=== PATIENT | female | born 1945 | race Caucasian/White ===

== ENCOUNTER 2017-11-27 10:15 | Outpatient (RCR) | payer MEDICARE, SELFPAY ==
[2017-10-28 00:29] VITALS: BP 144/70; BP 86/58
--- NOTE | 2017-11-27 13:15 | PCM.CR.ITP ---
Exercise - Initial Assessment - Stages of Change Stages of Change:: Action - Exercise Prescription Mode:: Treadmill, Rower, Airdyne, NuStep Angina with exercise?: No - Hypertension Do any of the following apply?: Yes - Intervention Home Exercise/Activity Goal:: Moderate Exercise 30 min/day x 5 days/wk - Education Goals:: Warm-up, RPE JUAN Scale, S/S, Safe Exercise, Self-Monitoring - Exercise Program Goals Exercise Program Goals: Aerobic Activity >30 min Exercise - 30-day Assessment - Stages of Change Stages of Change:: Action - Exercise Prescription Mode:: Treadmill, Airdyne, NuStep Frequency (x/week): 3 Duration:: 35 METs - Progression: 0.5-1 MET as tolerated: 3.5 Target Heart Rate:: 104-112 - Intervention Home Exercise/Activity Goal:: Moderate Exercise 30 min/day x 5 days/wk - Education Goals:: Warm-up, RPE JUAN Scale, S/S, Safe Exercise, Self-Monitoring - Exercise Program Goals Exercise Program Goals: Aerobic Activity >30 min Exercise - 60-Day Assessment - Visit Date of Eval: 10/25/17 - Stages of Change Stages of Change:: Action - Exercise Prescription Mode:: Treadmill, Airdyne, NuStep, Arm Ergometer Frequency (x/week): 3 Duration:: 30 METs: 4 Target Heart Rate:: 104-112 MAX HR 112 - Hypertension Medication Changes:: Yes - 10/07/17 - Intervention Home Exercise/Activity Goal:: Moderate Exercise 30 min/day x 5 days/wk - Education Goals:: Warm-up, RPE JUAN Scale, S/S, Safe Exercise, Self-Monitoring - Exercise Program Goals Exercise Program Goals: Aerobic Activity >30 min Exercise - 90-Day Assessment - Visit Date of Eval: 11/27/17 Session #:: 30 - Stages of Change Stages of Change:: Action - Exercise Prescription Mode:: Treadmill, Airdyne, NuStep, Arm Ergometer Frequency (x/week): 3 Duration:: 30 METs: 4.5 Target Heart Rate:: 104-112 MAX HR 104 - Hypertension Resting Blood Pressure:: 84/52 Peak Exercise Blood Pressure:: 118/70 Medication Changes:: Yes - 10/07/17 - Intervention Home Exercise/Activity Goal:: Moderate Exercise 30 min/day x 5 days/wk - Education Goals:: Warm-up, RPE JUAN Scale, S/S, Safe Exercise, Self-Monitoring - Exercise Program Goals Exercise Program Goals: Aerobic Activity >30 min Exercise - Final/Discharge - Hypertension Do any of the following apply?: Yes Nutrition - Initial Assessment - Program Goals Nutrition Program Goals: LDL <70. Total Cholesterol <200. HDL >45. Triglycerides <150. HgbA1C <7%. BMI <25 - Stages of Change Stages of Change:: Action - Diabetes Diabetes:: No Non-Insulin Dependent?: No Do you monitor your blood sugar at home?: No - Weight Management Body Fat %:: 29 Total Score:: 3 - Intervention Referral to dietitian:: No Referral to Diabetic Clinic:: No Will attend diet classes:: Yes - Education Gave educational materials for:: Healthy eating Nutrition - 30-Day Assessment - Program Goals Nutrition Program Goals: LDL <70. Total Cholesterol <200. HDL >45. Triglycerides <150. HgbA1C <7%. BMI <25 - Stages of Change Stages of Change:: Action - Lipids Has the patient seen the dietitian?: No - Diabetes Diabetes:: No Non-Insulin Dependent?: No - Intervention Referral to dietitian:: No Referral to Diabetic Clinic:: No Will attend diet classes:: Yes - Education Attended class for:: Healthy eating Nutrition - 60-Day Assessment - Program Goals Nutrition Program Goals: LDL <70. Total Cholesterol <200. HDL >45. Triglycerides <150. HgbA1C <7%. BMI <25 - Visit Date of Eval: 10/25/17 - Stages of Change Stages of Change:: Action - Lipids Has the patient seen the dietitian?: No - Diabetes Diabetes:: No Non-Insulin Dependent?: No - Intervention Referral to dietitian:: No Referral to Diabetic Clinic:: No Will attend diet classes:: Yes - Education Attended class for:: Healthy eating Nutrition - 90-Day Assessment - Program Goals Nutrition Program Goals: LDL <70. Total Cholesterol <200. HDL >45. Triglycerides <150. HgbA1C <7%. BMI <25 - Visit Date of Eval: 11/27/17 - Stages of Change Stages of Change:: Action - Lipids Has the patient seen the dietitian?: No - Diabetes Diabetes:: No Non-Insulin Dependent?: No - Weight Management Weight:: 93.667 kg - gained 16.5# this month - Intervention Referral to dietitian:: No Referral to Diabetic Clinic:: No Will attend diet classes:: Yes - Education Attended class for:: Healthy eating Nutrition - Final Assessment - Program Goals Nutrition Program Goals: LDL <70. Total Cholesterol <200. HDL >45. Triglycerides <150. HgbA1C <7%. BMI <25 - Diabetes Diabetes:: No Non-Insulin Dependent?: No - Weight Management Body Fat %:: 29 Total Score:: 3 - Intervention Referral to dietitian:: No Referral to Diabetic Clinic:: No Will attend diet classes:: Yes Tobacco - Initial Assessment - Program Goals Tobacco Program Goals: Complete smoking cessation. Attend education classes. Improve Knowledge Test score - Stage of Change Stages of Change:: Action - Learning Barriers Learning Barriers: Vision, Ready to Learn Total Score:: 6 - Family Support Do you have family support?: Yes - Tobacco Use Do you use smokeless tobacco?: No - Intervention Smoking Cessation Referral:: No Individual Education/Counseling:: No Education Schedule Given:: Yes - Education Gave educational material for:: Coronary artery disease, Risk factors, Sexuality, Medical compliance, Cardiac A&P, Angina signs & symptoms Tobacco - 30-Day Assessment - Program Goals Tobacco Program Goals: Complete smoking cessation. Attend education classes. Improve Knowledge Test score - Stage of Change Stages of Change:: Action - Learning Barriers Learning Barriers: Participates in education - Family Support Do you have family support?: Yes - Tobacco Use Tobacco Use: Non-smoker Do you use smokeless tobacco?: No - Intervention Smoking Cessation Referral:: No Individual Education/Counseling:: No Education Schedule Given:: Yes - Education Attended class for:: Coronary artery disease, Risk factors, Sexuality, Medical compliance, Cardiac A&P, Angina signs & symptoms Tobacco - 60-Day Assessment - Program Goals Tobacco Program Goals: Complete smoking cessation. Attend education classes. Improve Knowledge Test score - Stage of Change Stages of Change:: Action - Learning Barriers Learning Barriers: Participates in education - Family Support Do you have family support?: Yes - Tobacco Use Tobacco Use: Non-smoker Do you use smokeless tobacco?: No - Intervention Smoking Cessation Referral:: No Individual Education/Counseling:: No Education Schedule Given:: Yes - Education Attended class for:: Coronary artery disease, Risk factors, Sexuality, Medical compliance, Cardiac A&P, Angina signs & symptoms Tobacco - 90-Day Assessment - Program Goals Tobacco Program Goals: Complete smoking cessation. Attend education classes. Improve Knowledge Test score - Stage of Change Stages of Change:: Action - Learning Barriers Learning Barriers: Participates in education - Family Support Do you have family support?: Yes - Tobacco Use Tobacco Use: Non-smoker Do you use smokeless tobacco?: No - Intervention Smoking Cessation Referral:: No Individual Education/Counseling:: No Education Schedule Given:: Yes - Education Attended class for:: Coronary artery disease, Risk factors, Sexuality, Medical compliance, Cardiac A&P, Angina signs & symptoms Tobacco - Final Assessment - Program Goals Tobacco Program Goals: Complete smoking cessation. Attend education classes. Improve Knowledge Test score - Learning Barriers Cardiac Knowledge Test Score:: 6 - Family Support Do you have family support?: Yes - Tobacco Use Tobacco Use: Non-smoker Do you use smokeless tobacco?: No - Intervention Smoking Cessation Referral:: No Individual Education/Counseling:: No Education Schedule Given:: Yes Psychosocial - Initial Assess - Target Goals Target Goals: Assess presence or absence of depression. Using a valid screening tool, maximizes coping skills. Positive support system - Stages of Change Stages of Change:: Action - Psychosocial Test Tool Used:: HANDS Depression Questionnaire Tests Completed: SF - 36 survey completed, Mood Scale Test Self-Efficacy Score:: 7 - Patient/Program Goal Preventative Medication(s):: Aspirin, SHUN inhibitor, Clopidogrel, Beta veronika, Statin/lipid - Assistive Devices Assistive Devices:: None Fall Risk Assessed:: Yes Psychosocial - 30-Day Assess - Target Goals Target Goals: Assess presence or absence of depression. Using a valid screening tool, maximizes coping skills. Positive support system - Stages of Change Stages of Change:: Action - Psychosocial Test Tool Used:: HANDS Depression Questionnaire Self-Efficacy Score:: 7 - Patient/Program Goal Preventative Medication(s):: Aspirin, SHUN inhibitor, Clopidogrel, Beta veronika, Statin/lipid - Assistive Devices Assistive Devices:: None Fall Risk Assessed:: Yes Psychosocial - 60-Day Assess - Target Goals Target Goals: Assess presence or absence of depression. Using a valid screening tool, maximizes coping skills. Positive support system - Stages of Change Stages of Change:: Action - Psychosocial Test Tool Used:: HANDS Depression Questionnaire Self-Efficacy Score:: 7 - Patient/Program Goal Preventative Medication(s):: Aspirin, SHUN inhibitor, Clopidogrel, Beta veronika, Statin/lipid - Assistive Devices Assistive Devices:: None Fall Risk Assessed:: Yes Psychosocial - 90-Day Assess - Target Goals Target Goals: Assess presence or absence of depression. Using a valid screening tool, maximizes coping skills. Positive support system - Stages of Change Stages of Change:: Action - Psychosocial Test Tool Used:: HANDS Depression Questionnaire Self-Efficacy Score:: 7 - Intervention PS - Interventions: Yes Attend Stress Management Classes, Yes Uses Stress Management Skills, No Referral to Mental Health, No Referral to [facility] Case Management, No Referral to Physician - Education Attended classes for:: Coping techniques, Signs & symptoms of depression, Stress management, Relaxation techniques - Patient/Program Goal Preventative Medication(s):: Aspirin, SHUN inhibitor, Clopidogrel, Beta veronika, Statin/lipid - Assistive Devices Assistive Devices:: None Fall Risk Assessed:: Yes Psychosocial - Final Assessmen - Target Goals Target Goals: Assess presence or absence of depression. Using a valid screening tool, maximizes coping skills. Positive support system - Psychosocial Test Tool Used:: HANDS Depression Questionnaire Tests Completed: SF - 36 survey completed, Mood Scale Test Self-Efficacy Score:: 7 - Patient/Program Goal Preventative Medication(s):: Aspirin, SHUN inhibitor, Clopidogrel, Beta veronika, Statin/lipid - Assistive Devices Assistive Devices:: None Fall Risk Assessed:: Yes Patient Health Questionnaire 90-Day Re-eval Assessment 1. Little interest or pleasure in doing things: Not at all 2. Feeling down, depressed, or hopeless: Not at all 3. Trouble falling or staying asleep, or sleeping too much: Not at all 4. Feeling tired or having little energy: Not at all 5. Poor appetite or overeating: Not at all 6. Feeling bad about yourself -- or that you are a failure or have let yourself or your family down: Not at all 7. Trouble concentrating on things, such as reading the newspaper or watching television: Not at all 8. Moving or speaking so slowly that other people could have noticed. Or the opposite - being so fidgety or restless that you have been moving around a lot more than usual: Not at all 9. Thoughts that you would be better off , or of hurting yourself in some way: Not at all Total Score: 0 Self-Efficacy 90-Day Re-eval Assessment We would like to know how confident you are in doing certain activities. Please select your confidence level for:: Select your confidence level for the following using the scale 1-10 where 1 is not at all confident and 10 is totally confident. Your score is the average of all 6 responses. Fatigue: How confident are you that you can keep the fatigue caused by your disease from interfering with the things you want to do? Select Number: 10 Physical Discomfort or Pain: How confident are you that you can keep the physical discomfort or pain of your disease from interfering with the things you want to do? Select Number: 10 Emotional Distress: How confident are you that you can keep the emotional distress caused by your disease from interfering with the things you want to do? Select Number: 10 Other Symptoms or Health Problems: How confident are you that you can keep other symptoms or health problems from interfering with the things you want to do? Select Number: 10 Different Tasks and Activities: How confident are you that you can do the different tasks and activities needed to manage your health condition so as to reduce your need to see a doctor? Select Number: 10 Medication: How confident are you that you can do things other than just taking medication to reduce how much your illness affects your everyday life? Select Number: 10 Total Score:: 10 Cardiac Rehabilitation Goals - Cardiac Rehab Goals Cardiac Rehabilitation Goals: 1. Maintain the individual as the primary focus of care. 2. To improve the patient's quality of life. 3. Identification of cardiac risk factors and provide cardiac risk factor management. 4. Enhance the psychosocial status of the patient. 5. Reconditioning enough to allow the patient to resume customary activities. 6. Control symptoms of cardiac disease - Scale Scale for measuring improvement of personal goals: Enter appropriate number in Comments. 2 = Unchanged. 3 = Slightly Better. 4 = Moderate Improvement. 5 = Met my Goal 90-Day Re-eval Assessment Personal Goals: Discharge Reassessment: Improve energy level - goals met, Get back to work, or to resume activities faster - goals met, Improve knowledge of cardiac disease - goals met, Improve muscle strength and endurance - goals met, Improve diet and eating habits (eat healthier) - goal not met. Patient reencourqaged to seek structured weight loss., Control risk factors (learn risk factor modification) - goals met
[2017-11-27 13:19] VITALS: BP 118/70; BP 84/52
== END 2017-11-27 23:59 ==
LOC: CR 10:15
PROVIDERS: Family Provider Internal Medicine; PCP Internal Medicine
DX: I34.0 Nonrheumatic mitral (valve) insufficiency (principal)
CPT/HCPCS: 93798

== ENCOUNTER 2017-12-11 10:15 | Outpatient (RCR) | payer MEDICARE, SELFPAY ==
[2017-11-19 13:28] VITALS: BP 106/78; BMI 31.6
[2017-11-28 00:30] VITALS: BP 118/70; BP 84/52
[2017-12-24 07:56] VITALS: BP 108/62; BP 118/60
--- NOTE | 2017-12-24 07:56 | CR.ITP_ITS ---
Exercise - Initial Assessment - Stages of Change Stages of Change:: Action - Exercise Prescription Mode:: Treadmill, Rower, Airdyne, NuStep Angina with exercise?: No - Hypertension Do any of the following apply?: Yes - Intervention Home Exercise/Activity Goal:: Moderate Exercise 30 min/day x 5 days/wk - Education Goals:: Warm-up, RPE JUAN Scale, S/S, Safe Exercise, Self-Monitoring - Exercise Program Goals Exercise Program Goals: Aerobic Activity >30 min Exercise - 30-day Assessment - Stages of Change Stages of Change:: Action - Exercise Prescription Mode:: Treadmill, Airdyne, NuStep Frequency (x/week): 3 Duration:: 35 METs - Progression: 0.5-1 MET as tolerated: 3.5 Target Heart Rate:: 104-112 - Intervention Home Exercise/Activity Goal:: Moderate Exercise 30 min/day x 5 days/wk - Education Goals:: Warm-up, RPE JUAN Scale, S/S, Safe Exercise, Self-Monitoring - Exercise Program Goals Exercise Program Goals: Aerobic Activity >30 min Exercise - 60-Day Assessment - Visit Date of Eval: 11/27/17 - Stages of Change Stages of Change:: Action - Exercise Prescription Mode:: Treadmill, Airdyne, NuStep, Arm Ergometer Frequency (x/week): 3 Duration:: 30 METs: 4.5 Target Heart Rate:: 104-112 MAX HR 104 - Hypertension Medication Changes:: Yes - 10/07/17 - Intervention Home Exercise/Activity Goal:: Moderate Exercise 30 min/day x 5 days/wk - Education Goals:: Warm-up, RPE JUAN Scale, S/S, Safe Exercise, Self-Monitoring - Exercise Program Goals Exercise Program Goals: Aerobic Activity >30 min Exercise - 90-Day Assessment - Visit Date of Eval: 11/27/17 - Stages of Change Stages of Change:: Action - Exercise Prescription Mode:: Treadmill, Airdyne, NuStep, Arm Ergometer Frequency (x/week): 3 Duration:: 30 METs: 4.5 Target Heart Rate:: 104-112 MAX HR 104 - Hypertension Medication Changes:: Yes - 10/07/17 - Intervention Home Exercise/Activity Goal:: Moderate Exercise 30 min/day x 5 days/wk - Education Goals:: Warm-up, RPE JUAN Scale, S/S, Safe Exercise, Self-Monitoring - Exercise Program Goals Exercise Program Goals: Aerobic Activity >30 min Exercise - Final/Discharge - Visit Date of Eval: 12/24/17 - patient completed CR 12/11/2017 - Stages of Change Stages of Change:: Action - Exercise Prescription Mode:: Treadmill, NuStep, Arm Ergometer Frequency (x/week): 3 Duration:: 30 METs: 4.5 Target Heart Rate:: THRR 104-112 w/max HR 122 - Hypertension Do any of the following apply?: Yes Resting Blood Pressure:: 108/62 Peak Exercise Blood Pressure:: 118/60 - Intervention Home Exercise/Activity Goal:: Moderate Exercise 30 min/day x 5 days/wk - Education Goal Progress: Goal Met - Exercise Program Goals Exercise Program Goals: Aerobic Activity >30 min Nutrition - Initial Assessment - Program Goals Nutrition Program Goals: LDL <70. Total Cholesterol <200. HDL >45. Triglycerides <150. HgbA1C <7%. BMI <25 - Stages of Change Stages of Change:: Action - Diabetes Diabetes:: No Non-Insulin Dependent?: No Do you monitor your blood sugar at home?: No - Weight Management Body Fat %:: 29 Total Score:: 3 - Intervention Referral to dietitian:: No Referral to Diabetic Clinic:: No Will attend diet classes:: Yes - Education Gave educational materials for:: Healthy eating Nutrition - 30-Day Assessment - Program Goals Nutrition Program Goals: LDL <70. Total Cholesterol <200. HDL >45. Triglycerides <150. HgbA1C <7%. BMI <25 - Stages of Change Stages of Change:: Action - Lipids Has the patient seen the dietitian?: No - Diabetes Diabetes:: No Non-Insulin Dependent?: No - Intervention Referral to dietitian:: No Referral to Diabetic Clinic:: No Will attend diet classes:: Yes - Education Attended class for:: Healthy eating Nutrition - 60-Day Assessment - Program Goals Nutrition Program Goals: LDL <70. Total Cholesterol <200. HDL >45. Triglycerides <150. HgbA1C <7%. BMI <25 - Visit Date of Eval: 11/27/17 - Stages of Change Stages of Change:: Action - Lipids Has the patient seen the dietitian?: No - Diabetes Diabetes:: No Non-Insulin Dependent?: No - Intervention Referral to dietitian:: No Referral to Diabetic Clinic:: No Will attend diet classes:: Yes - Education Attended class for:: Healthy eating Nutrition - 90-Day Assessment - Program Goals Nutrition Program Goals: LDL <70. Total Cholesterol <200. HDL >45. Triglycerides <150. HgbA1C <7%. BMI <25 - Visit Date of Eval: 11/27/17 - Stages of Change Stages of Change:: Action - Lipids Has the patient seen the dietitian?: No - Diabetes Diabetes:: No Non-Insulin Dependent?: No - Intervention Referral to dietitian:: No Referral to Diabetic Clinic:: No Will attend diet classes:: Yes - Education Attended class for:: Healthy eating Nutrition - Final Assessment - Program Goals Nutrition Program Goals: LDL <70. Total Cholesterol <200. HDL >45. Triglycerides <150. HgbA1C <7%. BMI <25 - Visit Date of Eval: 12/24/17 - Discharged 12/11/2017 - Stages of Change Stages of Change:: Action - Diabetes Diabetes:: No Non-Insulin Dependent?: No - Weight Management Height: 5 ft 6 in Weight:: 88.904 kg - unchanged Body Fat %:: 29 Total Score:: 3 - Intervention Referral to dietitian:: No Referral to Diabetic Clinic:: No Will attend diet classes:: Yes - Education Education Goal Reached?: No - patient not driven to loss of weight Tobacco - Initial Assessment - Program Goals Tobacco Program Goals: Complete smoking cessation. Attend education classes. Improve Knowledge Test score - Stage of Change Stages of Change:: Action - Learning Barriers Learning Barriers: Vision, Ready to Learn Total Score:: 6 - Family Support Do you have family support?: Yes - Tobacco Use Do you use smokeless tobacco?: No - Intervention Smoking Cessation Referral:: No Individual Education/Counseling:: No Education Schedule Given:: Yes - Education Gave educational material for:: Coronary artery disease, Risk factors, Sexuality , Medical compliance, Cardiac A&P, Angina signs & symptoms Tobacco - 30-Day Assessment - Program Goals Tobacco Program Goals: Complete smoking cessation. Attend education classes. Improve Knowledge Test score - Stage of Change Stages of Change:: Action - Learning Barriers Learning Barriers: Participates in education - Family Support Do you have family support?: Yes - Tobacco Use Tobacco Use: Non-smoker Do you use smokeless tobacco?: No - Intervention Smoking Cessation Referral:: No Individual Education/Counseling:: No Education Schedule Given:: Yes - Education Attended class for:: Coronary artery disease, Risk factors, Sexuality, Medical compliance, Cardiac A&P, Angina signs & symptoms Tobacco - 60-Day Assessment - Program Goals Tobacco Program Goals: Complete smoking cessation. Attend education classes. Improve Knowledge Test score - Stage of Change Stages of Change:: Action - Learning Barriers Learning Barriers: Participates in education - Family Support Do you have family support?: Yes - Tobacco Use Tobacco Use: Non-smoker Do you use smokeless tobacco?: No - Intervention Smoking Cessation Referral:: No Individual Education/Counseling:: No Education Schedule Given:: Yes - Education Attended class for:: Coronary artery disease, Risk factors, Sexuality, Medical compliance, Cardiac A&P, Angina signs & symptoms Tobacco - 90-Day Assessment - Program Goals Tobacco Program Goals: Complete smoking cessation. Attend education classes. Improve Knowledge Test score - Stage of Change Stages of Change:: Action - Learning Barriers Learning Barriers: Participates in education - Family Support Do you have family support?: Yes - Tobacco Use Tobacco Use: Non-smoker Do you use smokeless tobacco?: No - Intervention Smoking Cessation Referral:: No Individual Education/Counseling:: No Education Schedule Given:: Yes - Education Attended class for:: Coronary artery disease, Risk factors, Sexuality, Medical compliance, Cardiac A&P, Angina signs & symptoms Tobacco - Final Assessment - Program Goals Tobacco Program Goals: Complete smoking cessation. Attend education classes. Improve Knowledge Test score - Stage of Change Stages of Change:: Action - Learning Barriers Cardiac Knowledge Test Score:: 9 - Family Support Do you have family support?: Yes - Tobacco Use Tobacco Use: Non-smoker Do you use smokeless tobacco?: No - Intervention Smoking Cessation Referral:: No Individual Education/Counseling:: No Education Schedule Given:: Yes - Education Education Goal Reached?: Yes Psychosocial - Initial Assess - Target Goals Target Goals: Assess presence or absence of depression. Using a valid screening tool, maximizes coping skills. Positive support system - Stages of Change Stages of Change:: Action - Psychosocial Test Tool Used:: HANDS Depression Questionnaire Tests Completed: SF - 36 survey completed, Mood Scale Test Self-Efficacy Score:: 7 - Intervention PS - Interventions: Yes Attend Stress Management Classes, Yes Uses Stress Management Skills, No Referral to Mental Health, No Referral to [facility] Case Management, No Referral to Physician - Education Gave educational materials for:: Coping techniques, Signs & symptoms of depression, Stress management, Relaxation techniques - Patient/Program Goal Preventative Medication(s):: Aspirin, SHUN inhibitor, Clopidogrel, Beta veronika, Statin/lipid - Assistive Devices Assistive Devices:: None Fall Risk Assessed:: Yes Psychosocial - 30-Day Assess - Target Goals Target Goals: Assess presence or absence of depression. Using a valid screening tool, maximizes coping skills. Positive support system - Stages of Change Stages of Change:: Action - Psychosocial Test Tool Used:: HANDS Depression Questionnaire Self-Efficacy Score:: 7 - Patient/Program Goal Preventative Medication(s):: Aspirin, SHUN inhibitor, Clopidogrel, Beta veronika, Statin/lipid - Assistive Devices Assistive Devices:: None Fall Risk Assessed:: Yes Psychosocial - 60-Day Assess - Target Goals Target Goals: Assess presence or absence of depression. Using a valid screening tool, maximizes coping skills. Positive support system - Stages of Change Stages of Change:: Action - Psychosocial Test Tool Used:: HANDS Depression Questionnaire Self-Efficacy Score:: 7 - Education Attended classes for:: Coping techniques, Signs & symptoms of depression, Stress management, Relaxation techniques - Patient/Program Goal Preventative Medication(s):: Aspirin, SHUN inhibitor, Clopidogrel, Beta veronika, Statin/lipid - Assistive Devices Assistive Devices:: None Fall Risk Assessed:: Yes Psychosocial - 90-Day Assess - Target Goals Target Goals: Assess presence or absence of depression. Using a valid screening tool, maximizes coping skills. Positive support system - Stages of Change Stages of Change:: Action - Psychosocial Test Tool Used:: HANDS Depression Questionnaire Self-Efficacy Score:: 7 - Education Attended classes for:: Coping techniques, Signs & symptoms of depression, Stress management, Relaxation techniques - Patient/Program Goal Preventative Medication(s):: Aspirin, SHUN inhibitor, Clopidogrel, Beta veronika, Statin/lipid - Assistive Devices Assistive Devices:: None Fall Risk Assessed:: Yes Psychosocial - Final Assessmen - Target Goals Target Goals: Assess presence or absence of depression. Using a valid screening tool, maximizes coping skills. Positive support system - Stages of Change Stages of Change:: Action - Psychosocial Test Tool Used:: HANDS Depression Questionnaire Tests Completed: SF - 36 survey completed, Mood Scale Test Self-Efficacy Score:: 7 - Intervention PS - Interventions: Yes Attend Stress Management Classes, Yes Uses Stress Management Skills, No Referral to Mental Health, No Referral to [facility] Case Management, No Referral to Physician - Education Education Goal Reached?: Yes - Patient/Program Goal Preventative Medication(s):: Aspirin, SHUN inhibitor, Clopidogrel, Beta veronika, Statin/lipid - Assistive Devices Assistive Devices:: None Fall Risk Assessed:: Yes Patient Health Questionnaire Discharge Assessment 1. Little interest or pleasure in doing things: Not at all 2. Feeling down, depressed, or hopeless: Not at all 3. Trouble falling or staying asleep, or sleeping too much: Not at all 4. Feeling tired or having little energy: Not at all 5. Poor appetite or overeating: Not at all 6. Feeling bad about yourself -- or that you are a failure or have let yourself or your family down: Not at all 7. Trouble concentrating on things, such as reading the newspaper or watching television: Not at all 8. Moving or speaking so slowly that other people could have noticed. Or the opposite - being so fidgety or restless that you have been moving around a lot more than usual: Not at all 9. Thoughts that you would be better off , or of hurting yourself in some way: Not at all Total Score: 0 Knowledge Test - Check your knowledge Discharge The #1 cause of in the [place] each year is:: Heart disease Which of the following is a common treatment for heart disease?: All of the above The arteries that feed the heart are called:: Coronary arteries HDL cholesterol is known as the good cholesterol.: True What disease increases your risk for heart disease?: Diabetes What food product raises blood cholesterol level the most?: Saturated fat The bad cholesterol in the blood is called:: LDL Hypertension is another word for:: High blood pressure A blood pressure reading of 148/88 is considered normal.: True Exercise will only benefit your health when your heart rate reaches a target level.: False Total Score:: 9 Self-Efficacy Discharge Assessment We would like to know how confident you are in doing certain activities. Please select your confidence level for:: Select your confidence level for the following using the scale 1-10 where 1 is not at all confident and 10 is totally confident. Your score is the average of all 6 responses. Fatigue: How confident are you that you can keep the fatigue caused by your disease from interfering with the things you want to do? Select Number: 9 Physical Discomfort or Pain: How confident are you that you can keep the physical discomfort or pain of your disease from interfering with the things you want to do? Select Number: 10 Emotional Distress: How confident are you that you can keep the emotional distress caused by your disease from interfering with the things you want to do? Select Number: 10 Other Symptoms or Health Problems: How confident are you that you can keep other symptoms or health problems from interfering with the things you want to do? Select Number: 10 Different Tasks and Activities: How confident are you that you can do the different tasks and activities needed to manage your health condition so as to reduce your need to see a doctor? Select Number: 10 Medication: How confident are you that you can do things other than just taking medication to reduce how much your illness affects your everyday life? Select Number: 10 Total Score:: 9 Nutrition Survey - Nutrition Survey Instructions Scoring Instructions: Scoring is as follows: Yes = 1 points. No = 0 point. Patient score that is >/=12 is considered to be at potential nutritional risk and could benefit from a referral to a registered dietitian. - Nutrition Survey Discharge Have you lost >10 lbs over the past 2 months without trying?: No Are you following a special diet at home for diabetes, low fat, or low salt?: No Are you interested in meeting with a dietitian for help understanding your diet? : No Do you eat less than 3 meals a day?: Yes Do you eat fatty meats (cabello, sausage, ribs, etc), fried foods, desserts, large amounts of salad dressings, margarine, butter, or cheese most days?: No Do you have food allergies? [Enter types in comment field]: No Do you eat in restaurants more than 3 times a week?: No Do you season food with salt, seasoning salt, or garlic salt?: Yes Do you used canned, boxed, frozen meals, or soups, seasoning packets?: Yes Total Score:: 3 Cardiac Rehabilitation Goals - Cardiac Rehab Goals Cardiac Rehabilitation Goals: 1. Maintain the individual as the primary focus of care. 2. To improve the patient's quality of life. 3. Identification of cardiac risk factors and provide cardiac risk factor management. 4. Enhance the psychosocial status of the patient. 5. Reconditioning enough to allow the patient to resume customary activities. 6. Control symptoms of cardiac disease - Scale Scale for measuring improvement of personal goals: Enter appropriate number in Comments. 2 = Unchanged. 3 = Slightly Better. 4 = Moderate Improvement. 5 = Met my Goal Discharge Assessment Personal Goals: Discharge Reassessment: Improve energy level, Improve knowledge of cardiac disease, Improve muscle strength and endurance, Control risk factors (learn risk factor modification)
== END 2017-12-13 10:12 | disposition home or self-care (01) ==
LOC: CR 10:15
PROVIDERS: Family Provider Internal Medicine; PCP Internal Medicine
DX: I34.0 Nonrheumatic mitral (valve) insufficiency (principal)
CPT/HCPCS: 93798

== ENCOUNTER 2018-03-28 09:39 | Emergency (ER) | payer MEDICARE, SELFPAY ==
[2018-03-28 09:39] VITALS: BP 141/86; PULSE 105; RESP 15; TEMP 36.1; BMI 31.9
--- NOTE | 2018-03-28 09:51 | NURSING ---
NO OLD EKGS
--- NOTE | 2018-03-28 09:56 | ED.VISSUMM ---
- ER Visit Summary Date of Service: 03/28/18 Chief Complaint: Right lower back pain with radiation lateral aspect of the right lower extremity to the ankle History of Present Illness: The patient is a 72 F who presents with low back pain after she bent over. She has had pain for the past several days. She denies bowel bladder dysfunction. I saddle paresthesia or anesthesia. She denies foot drop. She does not have any steps that she goes up or down to assess for quadricep weakness. She denies history of herniated disc. There is no history of trauma. She denies dysuria, frequency, urgency or hematuria. She has tach and Naprosyn without improvement. She had prednisone that was left over for a another reason which she took without improvement. She reports pain is worse with movement and walking. She prefers to sit compared to stand. There is no history of renal disease, peptic ulcer disease or diabetes. Physical Examination: Patient appears uncomfortable. She has a slight limp with ambulation. Blood pressure elevated 141/86. Heart rate 105. HEENT exam is unremarkable. Heart is regular without murmur, gallop or rub. Lungs are clear to auscultation. Abdomen is soft nontender with no palpable or pulsatile mass. There is no abdominal bruit. Straight leg test is negative. Crossover test is negative. DTRs at patella and ankle are 1-2+ and symmetric. EHL is intact. There is no clonus or Babinski sign. DP pulses palpable bilaterally and 2+. Patient has normal gluteal sensation. Test Results: None Emergency Department Course and Treatment: Patient was informed she has muscular low back pain since she has pain with her leg coming down straight leg test and she has reproducible pain. She was given a dose of [place] in the department and a prescription for [place]. She was instructed to follow-up with her primary care physician Dr. Solano. Treatment Plan: Prescription for opiate analgesia since patient is taking Tylenol, Naprosyn and prednisone without improvement. Disposition: Discharged home with outpatient follow-up with PCP Impression: Acute right lower back pain secondary to muscle strain initial encounter This note was generated with Draft dictation software. It may contain incorrect words, spelling, and punctuation that were not noted in review of the chart prior to signing ED Disposition - Plan for ED Patient: Disposition: Home or Assisted Living Chief Complaint: Back Instructions: ED Sprain Strain Lumbar Prescriptions: Hydrocodone/Acetaminophen [[place] 5-325 Tablet] 1 each PO Q6H PRN PRN 3 Days #14 tablet PRN Reason: Back pain Referrals: Tabatha Solano MD [Primary Care Provider] - 5-7 Days Additional Instructions: Your prescription was electronically sent to [facility] pharmacy
[2018-03-28 10:24] VITALS: PULSE 86; RESP 22; O2SAT 98
--- NOTE | 2018-03-28 10:26 | ED.RN ---
THIS NURSE REVIEWED D/C INSTRUCTIONS WITH PT. PT VERBALIZED UNDERSTANDING OF INSTRUCTIONS. PT DOES NOT HAVE A RIDE HOME. DECLINED NORCO. PT DENIES FURTHER NEEDS OR QUESTIONS AT THIS TIME. PT AMBULATES FROM ROOM ON OWN WITHOUT ASSISTANCE FROM STAFF
== END 2018-03-28 10:28 | disposition home or self-care (01) ==
LOC: ED 10:11
PROVIDERS: Emergency Provider Emergency Medicine; Family Provider Internal Medicine; PCP Internal Medicine
DX: S39.012A Strain of muscle, fascia and tendon of lower back, initial encounter (principal); M54.41 Lumbago with sciatica, right side; G89.29 Other chronic pain; I25.10 Atherosclerotic heart disease of native coronary artery without angina pectoris; I10 Essential (primary) hypertension; E78.00 Pure hypercholesterolemia, unspecified; Z79.82 Long term (current) use of aspirin; Z79.899 Other long term (current) drug therapy; X58.XXXA Exposure to other specified factors, initial encounter; Y93.89 Activity, other specified; Y92.89 Other specified places as the place of occurrence of the external cause; Y99.8 Other external cause status
CPT/HCPCS: 99282

== ENCOUNTER → 2018-05-02 15:26 | Outpatient (CLI) | payer MEDICARE, SELFPAY ==
--- NOTE | 2018-05-02 15:31 | VDLE_ITS ---
Reason For Study: CALF PAIN RIGHT LEFT GSV is normal. GSV is normal. CFV is compressible, spontaneous, phasic, CFV is compressible, spontaneous, phasic, competent and demonstrates normal competent, and demonstrates normal augmentation. augmentation. FV is compressible, spontaneous, phasic, FV is compressible, spontaneous, phasic, competent and demonstrates normal competent and demonstrates normal augmentation. augmentation. POP V is compressible, spontaneous, phasic, POP V is compressible, spontaneous, phasic, competent and demonstrates normal competent and demonstrates normal augmentation. augmentation. T/P Trunk is compressible. T/P Trunk is compressible. PTV is compressible. PTV is compressible. RT PerV is compressible. LT PerV is compressible. Procedure Exam performed in department. A preliminary report was called and/or faxed to DR JOHNSON. Interpretation Summary Deep veins of the lower extremities are bilaterally patent and compressible segmentally. There is no evidence of deep vein thrombosis on either side. Valvular competence appears intact within the proximal deep venous systems bilaterally. The greater saphenous veins appear bilaterally patent and compressible segmentally. Ordering Physician: Tabatha Johnson Referring Physician: Tabatha Johnson Performed By: Kendy Gonzalez, VALDEMARCS, RVT
== END ==
PROVIDERS: Family Provider Internal Medicine; PCP Internal Medicine; Visit Provider Internal Medicine
DX: M79.661 Pain in right lower leg (principal); M79.662 Pain in left lower leg
CPT/HCPCS: 93970

== ENCOUNTER → 2018-05-13 12:53 | Outpatient (CLI) | payer MEDICARE, SELFPAY ==
--- NOTE | 2018-05-13 13:00 | ECHOD_ITS ---
Reason For Study: MV DISORDER Procedure This was a 2D Doppler, Color Flow transthoracic echocardiogram. The exam was of adequate technical quality. Exam performed in department. Left Ventricle Normal LV size. Sigmoid septum. Segmental dysfunction with preserved ejection fraction (see wall motion). The estimated ejection fraction is 60 %. Post operative septal motion. There is evidence of diastolic dysfunction. Mid-inferoseptal : Hypokinetic. Mid-anteroseptal : Hypokinetic. Septal [place] : Hypokinetic. Right Ventricle Normal RV size. Normal systolic function. Atria The left atrium is mildly enlarged. Normal right atrium. No doppler evidence for ASD. Mitral Valve An annuloplasty ring is noted in the mitral position. Trivial transvalvular insufficiency of the mitral valve. Tricuspid Valve Normal tricuspid valve. Mild to moderate (1-2+) tricuspid valve insufficiency. Right ventricular systolic pressure estimated to be 33 mmHg. Aortic Valve Trisinus/trileaflet aortic valve. Mild focal aortic valve thickening. Pulmonic Valve The pulmonic valve is not well visualized. Great Vessels Normal sized aortic root. Pericardium/Pleural No pericardial effusion. MMode/2D Measurements & Calculations LVIDd: 3.5 cm IVSd: 0.95 cm Ao root diam: 3.1 cm LVIDs: 2.2 cm LVPWd: 1.00 cm RVDd: 2.9 cm FS: 38.2 % LAV(MOD-bp): 57.9 ml LA A4 area: 17.5 cm2 RA A4 area: 12.2 cm2 LAV(MOD-bp) Indexed: 29.2 ml/m2 LAV(MOD-sp2): 59.8 ml LAV(MOD-sp4): 48.7 ml Time Measurements MV dec time: 0.20 sec Doppler Measurements & Calculations MV E max sander: 95.0 cm/sec Lat Peak E' Sander: 4.6 cm/sec Med Peak E' Sander: 4.8 cm/sec MV A max sander: 136.5 cm/sec E/E' lat: 20.8 E/E' med: 19.7 MV E/A: 0.70 MV V2 max: 159.7 cm/sec Ao V2 max: 95.3 cm/sec LV V1 max: 75.3 cm/sec MV max P.2 mmHg Ao max P.6 mmHg LV V1 max P.3 mmHg MV V2 mean: 97.1 cm/sec MV mean P.3 mmHg MV V2 VTI: 24.9 cm PA V2 max: 80.7 cm/sec TR max sander: 272.8 cm/sec TR max P.8 mmHg Interpretation Summary Segmental dysfunction with preserved ejection fraction (see wall motion). The estimated ejection fraction is 60 %. Post operative septal motion. Sigmoid septum. The left atrium is mildly enlarged. An annuloplasty ring is noted in the mitral position. Trivial transvalvular insufficiency of the mitral valve. Mild to moderate (1-2+) tricuspid valve insufficiency. Mild focal aortic valve thickening. Right ventricular systolic pressure estimated to be 33 mmHg. There is evidence of diastolic dysfunction. 2D echocardiograhic images c/w redundant chordae tendonae. Ordering Physician: Tatianna Faith/Amor Lee Referring Physician: JOANNE JOHNSON Performed By: Kendy Gonzalez, SAMIRA, RVT
== END ==
PROVIDERS: Family Provider Internal Medicine; PCP Internal Medicine; Visit Provider Physician Assistant Medical
DX: I50.31 Acute diastolic (congestive) heart failure (principal); I25.10 Atherosclerotic heart disease of native coronary artery without angina pectoris; I34.0 Nonrheumatic mitral (valve) insufficiency
CPT/HCPCS: 93306

== ENCOUNTER 2018-05-15 10:30 | Outpatient (RCR) | payer MEDICARE, SELFPAY ==
--- NOTE | 2018-04-25 10:14 | HP.PTEVAL_ITS ---
Patient's Visit Information DEAN HANNA is a 72 year old F referred to Physical Therapy by LILLY Cunningham with a diagnosis of LBP. Date of Evaluation: 04/25/18 Physical Therapist: Rohan Hill PT, - Visit Plan Frequency: 1x/Week Plan: Issue Aquatic therapy HEP after 1-2 visits for core stabilization ex's and LE strengthening - Subjective Subjective: Pt reports she has had pain for one month now. Pt reports she was bending forward at that time to reach over a chair when her back went out on her. Pt reports treated herself for a while, but then had to go to the ER secondary to pain. Pt reports she was treated for a LB strain at that time with pain meds. Pt reports she has had no relief up til this point. Pt finally had xrays which revealed a L/S fracture. Pt reports she is now feeling a little better overall. Pt reports intermittent LE radiating pain that extends to her feet. Pt reports sleep diff secondary to pain. - Pain LBP Pain Intensity (Out of 10): 5 Pain Intensity Range: 10 - Objective Neuro: B LE sensation is WNL to light touch. B patellar tendon reflex= 2/3. MMT : B LE's are grossly 4-/5 throughout and painful with all testing. ROM: L/S is severely limited in all ranges. Repeated movements: RFIS and AFSHAN both peripheralize sx's - Goals Goal 1:: I with HEP in 2-3 Rx's Goal Time Frame: 2-4 Weeks - Rehabilitation Potential Physical Therapy Diagnosis: Pt has LBP, limited L/S ROM, and LE radiculopathy secondary to L/S fx Rehabilitation Potential: Good - Anticipated Interventions Patient/Client Instruction: Educate patient on: Condition, Plan of Care For the Purpose of:: To improve self management Therapeutic Exercise to Include: Strength training, Endurance training, Body mechanics, Postural training, Flexibilty training, In an aquatic setting, Dynamic Lumbar Stabilization For the Purpose of:: To decrease pain, To increase ROM, To improve muscle performance and motor function Thank you for the opportunity to evaluate your patient. For Medicare and Medicare HMO plans, please review the plan of care and approve it. It will need to be FAXED BACK to us at [phone] for Medicare purposes. Please let me know if there are questions or concerns regarding this plan of care. Physician Signature: Date:
--- NOTE | 2018-05-15 11:48 | HP.PTDCSUM ---
HP - PT D/C Summary It has been my pleasure to treat DEAN HANNA under orders from ANKIT CunninghamC, for the diagnosis of LBP for a total of 5 visit(s). Discharge Date: Please see the following information for a summary of their discharge status. - Subjective Subjective: Pt reports she feels ready for DC at this time. - Pain LBP Pain Intensity (Out of 10): 2 LLE Pain Intensity (Out of 10): 0 L ankle Pain Intensity (Out of 10): 4 - Overall Improvement % Improvement: 70 - Objective Objective/Function: Pt is now I with HEP of aquatic therapy ex's - Goals Goal 1:: I with HEP in 2-3 Rx's Goal Progress: Goal Met - Plan Plan: Discharge - D/C Information If there are questions or concerns regarding this patient's physical therapy, please feel free to call me at [phone]. Thank you for the referral of this patient. Sincerely, Rohan Hill, PT,
== END 2018-05-15 13:47 | disposition home or self-care (01) ==
LOC: PT 10:30
PROVIDERS: Family Provider Internal Medicine; PCP Internal Medicine; Visit Provider Clinical Nurse Specialist
DX: M54.41 Lumbago with sciatica, right side (principal)
CPT/HCPCS: 97113; 97161

== ENCOUNTER 2019-06-29 07:20 | Emergency (ER) | payer MEDICARE, SELFPAY ==
[2018-11-25 09:17] VITALS: BMI 33.3
[2019-06-29 07:20] VITALS: BP 159/91; PULSE 92; RESP 16; TEMP 36.1; O2SAT 99; BMI 33.2
--- NOTE | 2019-06-29 07:45 | RAD_ITS ---
STUDY: X-RAY - LEFT FOOT CLINICAL: Female, 73 years old. Medial pain and swelling TECHNIQUE: 3 view(s) of the foot. COMPARISON: None. FINDINGS: Plantar calcaneus spur. Mild diffuse hindfoot osteoarthritis. Normal metatarsi. There is degenerative arthrosis of the metatarsophalangeal joint of the hallux . Normal tibial and fibular sesamoid bones. Normal interphalangeal joint of the great toe. Normal phalanges of the great toe. Normal second through fifth metatarsophalangeal joints. Normal interphalangeal joints and phalanges of the lesser toes. The soft tissue structures are unremarkable. RAD/Foot min 3 Views IMPRESSION: Multifocal degenerative disease as described. No acute osseous abnormality is evident. Electronically Signed: Danny Comer MD at 8:11 EDT Tel , Service support ,
[2019-06-29] MEDS: HYDROcodone Bitartrate/Apap 5/325 Tablet PO (08:17)
--- NOTE | 2019-06-29 09:01 | ED.VISSUMM ---
- ER Visit Summary Date of Service: 06/29/19 Chief Complaint: Atraumatic left foot pain primarily great toe History of Present Illness: The patient is a 73 F CHF, hypertension and prior valvular heart disease which she had mitral valve repair and osteoarthritis. Patient states that Saturday night she is atraumatic left foot pain primarily in the great toe. No history of gout. No fever or chills. No significant redness. Physical Examination: Older female no acute distress. Vital signs are stable and afebrile. HEENT exam unremarkable. Neck nontender. Lungs clear to auscultation bilaterally. Heart regular rhythm no murmur. Abdomen soft and nontender. Normal bowel sounds no peritoneal signs. Patient is moving all 4 extremities. Neurovascular intact. Specifically left hip, left knee and ankle are nontender nonswollen. Normal range of motion. Left foot she has mild tenderness along the arch of her left great toe at both the metatarsophalangeal joint and also the interphalangeal joint of the great toe. There is no significant redness. There is no warmth. There is no signs of septic joint. Clinically this does not look like gout. There is no bony deformity. Otherwise the foot is nontender nonswollen. He. She is able to wiggle her toes. Has normal touch sensation. Ankle is normal. Test Results: Left foot x-ray 3 views read by myself shows no acute injury. There is some arthritic changes at the metatarsophalangeal joint of the great toe and also of the interphalangeal joint. No dislocation and no fracture noted. I did go over the films with the patient. Emergency Department Course and Treatment: We discussed diagnosis. Most likely is secondary to arthritis. Ice and elevate. Postop shoe. If not improving she may need a bone scan. Treatment Plan: Follow-up with a certified meeting professional. Ice and elevate. Postop shoe. Limited [place] for pain. Disposition: Discharge Impression: Acute left foot pain secondary to osteoarthritis This note was generated with [employer] dictation software. It may contain incorrect words, spelling, and punctuation that were not noted in review of the chart prior to signing ED Disposition - Plan for ED Patient: Referrals: Tabatha Solano MD [Primary Care Provider] -
--- NOTE | 2019-06-29 09:06 | ED.DEP ---
ED Disposition - Plan for ED Patient: Disposition: Home or Assisted Living Prescriptions: Hydrocodone/Acetaminophen [[place] 5-325 Tablet] 1 ea PO 4X/DAY PRN PRN 7 Days #14 tab PRN Reason: Pain Prescription Printed Referrals: Tabatha Solano MD [Primary Care Provider] - As Needed Jaylon Bojorquez DPM [STAFF PHYSICIAN] - As soon as possible Abran Gotti DPM [STAFF PHYSICIAN] - As soon as possible Additional Instructions: Foot pain secondary to arthritis. Ice and elevate your foot. Mobic for pain and inflammation. [place] for pain. Postop shoe to walk. Follow-up with 1 of the local wedger machine.
== END 2019-06-29 09:38 | disposition home or self-care (01) ==
PROVIDERS: Emergency Provider Emergency Medicine; Family Provider Internal Medicine; PCP Internal Medicine
DX: M19.072 Primary osteoarthritis, left ankle and foot (principal); I11.0 Hypertensive heart disease with heart failure; I50.9 Heart failure, unspecified; Z95.2 Presence of prosthetic heart valve
CPT/HCPCS: 73630; 99284

== ENCOUNTER 2020-01-09 14:42 | Observation (INO) | payer MEDICARE, SELFPAY ==
[2019-08-21 11:11] VITALS: BMI 33.5
[2020-01-09 14:43] VITALS: BP 123/70; PULSE 92; PULSE 96; RESP 16; RESP 18; TEMP 36.9; O2SAT 96; O2SAT 97; BMI 35.8
--- NOTE | 2020-01-09 15:30 | RAD_ITS ---
STUDY: X-RAY - LEFT FOOT CLINICAL: Female, 74 years old. left foot redness and swelling TECHNIQUE: 3 view(s) of the foot. COMPARISON: None. FINDINGS: There is a plantar calcaneal spur. Normal visualized subtalar, talonavicular, calcaneocuboid, tarsal and tarsometatarsal articulations. Normal metatarsi. There is degenerative arthrosis of the metatarsophalangeal joint of the hallux . Normal tibial and fibular sesamoid bones. Normal interphalangeal joint of the great toe. Normal phalanges of the great toe. Normal second through fifth metatarsophalangeal joints. Normal interphalangeal joints and phalanges of the lesser toes. There is soft tissue swelling of the forefoot. RAD/Foot min 3 Views IMPRESSION: No fracture or erosive process. Soft tissue swelling, nonspecific. Degenerative changes of the first MTP joint. Electronically Signed: Tyrell Sutherland MD ([place]) at 15:41 EDT , Service support ,
--- NOTE | 2020-01-09 15:34 | ED.DCSUM_ITS ---
- ER Visit Summary Date of Service: 01/09/20 Chief Complaint: Left foot redness History of Present Illness: The patient is a 74 F presenting with left foot redness. Patient states this started 2 to 3 days ago. She had a venous Doppler performed yesterday but does not know these results. She had knee surgery 3 weeks ago in [place]. She has no increasing pain or redness in her knee. She has been having increasing pain and redness to her left foot. She denies fever or other complaints. Physical Examination: Vitals are stable. Patient is afebrile. Alert no acute distress. HEENT exam is unremarkable. Neck is supple. Lungs are clear and equal bilaterally. Heart is regular rate and rhythm. Extremities left knee incision clean dry and intact. Active full range of motion. No erythema or warmth. Left foot medial and lateral erythema and warmth. Normal pulses. Active full range of motion. Skin is warm and dry. No focal neurologic deficit. Remainder of exam is unremarkable. Emergency Department Course and Treatment: Discussed with Dr. Worley covering for Dr. Solano. He was able to find her Doppler results from yesterday online and states that her venous Doppler was negative for any evidence of DVT. Left foot x-ray was obtained and shows no fracture or erosive process. Soft tissue swelling, nonspecific. Degenerative changes of the first MTP joint. CBC, chemistries unremarkable. Patient and family state she is unable to get around at home. She normally is able to use a walker but has been unable to stand, bear weight or get to the bathroom even with her walker. She was given Ancef IV. Discussed with the hospitalist for admission. Disposition: Admission Impression: Left foot cellulitis This note was generated with [employer] dictation software. It may contain incorrect words, spelling, and punctuation that were not noted in review of the chart prior to signing ED Disposition - Plan for ED Patient: Referrals: Tabtaha Solano MD [Primary Care Provider] -
[2020-01-09 15:35] LABS: Absolute Lymphocyte Count 0.82 X10^3/uL (0.83-4.51); Absolute Neutrophil Count 5.4 X10^3/uL (2.0-7.7); Basophil# 0.02 X10^3/uL; Basophil% 0.3 % (0-1); Eosinophil# 0.04 X10^3/uL; Eosinophils% 0.5 % (0-5); Hematocrit 36.2 % (37-47); Hemoglobin 11.7 g/dL (12.0-15.0); Lymphocyte # 0.82 X10^3/ul (4.0); Lymphocyte % 11.2 % (19-41); Mean Corp Hgb Conc 32.3 g/dL (32-36); Mean Corpuscular Hgb 30.5 pg (27.0-32.0); Mean Corpuscular Volume 94.5 fL (81-99); Monocyte# 1.04 X10^3/uL; Monocyte% 14.1 % (0-10); NRBC Flagged by Analyzer 0 % (0-5); Neutrophil # 5.41 X10^3/uL (2.7-7.7); Neutrophil % 73.6 % (47-70); Platelet Count 245 K/mm3 (150-450); RBC Distribution Width CV 13.1 % (11.6-14.6); Red Blood Count 3.83 M/mm3 (4.2-5.4); White Blood Count 7.4 K/mm3 (4.4-11.0)
[2020-01-09 15:46] LABS: Anion Gap 5 (5-15); BUN 16 mg/dL (7-18); BUN/Creat Ratio 16.7 RATIO (10-20); Chloride 105 mmol/L (98-107); Creatinine, Serum 0.96 mg/dL (0.55-1.02); EST Glomerular Filtration Rate 61 mL/min (>60); Est Glom Filt Rate - Afr Amer 73 mL/min (>60); Estimated Creatinine Clearance 48.13 ml/min; Glucose 106 mg/dL (74-106); Potassium 3.8 mmol/L (3.5-5.1); Sodium Level 139 mmol/L (136-145)
--- NOTE | 2020-01-09 16:23 | NURSING ---
MED SURG SEMENTI LEFT FOOT CELLULITIS
--- NOTE | 2020-01-09 16:34 | PCM.HP.STD ---
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 The patient is a 74 year old F who presents emergency room due to left foot pain with redness and swelling. Patient had left total knee replacement 12/21/2019 in [place]. She states she has been doing well with therapy up until a few days ago. she noticed left foot pain, increased with ambulation which has worsened since that time. She was given prescription for colchicine which she began around 4:00 this morning. Later in the morning she noticed redness of her left foot as well as warmth and increased swelling. Duplex ultrasound yesterday negative for DVT. Patient has such significant pain now that she is unable to bear weight. She denies fever, chills. Denies nausea, vomiting. She has a past medical history of gout, hypertension, mitral valve repair, pulmonary hypertension, mild CAD and chronic diastolic CHF. Past Medical History Past Medical History (Chronic Problems): Chronic Problems (Last Reviewed 08/21/19 @ 11:15 by Tatianna Ren) Pulmonary hypertension (Chronic) History of mitral valve repair (Chronic 07/08/17) Complex mitral valve repair with triangular P2; annuloplasty with a 30mm Pantera Bender annuloplasty band; and exclusion of oeft atrial appendage with a 35mm atrial clip 07/08/17 Nonrheumatic mitral (valve) insufficiency (Chronic) MVR Atherosclerotic heart disease of platinum coronary artery without angina pectoris (Chronic) Heart murmur (Chronic) Palpitations (Chronic) Acute diastolic CHF (congestive heart failure) (Chronic) Medical History: Medical History (Last Reviewed 10/25/19 @ 11:15 by Tatianna Ren) Pulmonary hypertension (Chronic) I27.20 Acute diastolic (congestive) heart failure (Resolved) I50.31 Chest pain, unspecified (Chronic) R07.9 Nonrheumatic mitral (valve) insufficiency (Chronic) I34.0 MVR Shortness of breath (Chronic) R06.02 Palpitations (Chronic) R00.2 Bilateral pleural effusion (Chronic) J90 Atherosclerotic heart disease of platinum coronary artery without angina pectoris (Chronic) I25.10 History of pleural effusion Z87.09 Allergies codeine Allergy (Unknown, Verified 08/21/19 11:11) Rash tramadol Allergy (Verified 08/21/19 11:11) Itching atorvastatin [From Lipitor] Adverse Reaction (Verified 08/21/19 11:11) hives and itching Home Medications: Ambulatory Orders Medication Instructions Recorded Omeprazole 40 mg PO DAILY 03/28/18 furosemide 40 mg tablet 40 mg PO DAILY #90 tab 07/21/18 potassium chloride 20 mEq 20 meq PO DAILY #90 tab 11/25/18 tablet,extended release(part/cryst) prednisone 10 mg tablet 10 mg PO DAILY PRN 9 Days #21 tab 11/25/18 metoprolol tartrate 25 mg tablet 25 mg PO BID #60 tab 06/15/19 colchicine 0.6 mg tablet 0.6 mg PO DAILY PRN 08/21/19 loratadine 10 mg tablet 10 mg PO DAILY PRN 08/21/19 Surgical History: Surgical History (Last Reviewed 01/09/20 @ 16:47 by Siri Au NP-Waqas) History of mitral valve repair (Chronic) Onset Date: 07/08/17 Z98.890 Complex mitral valve repair with triangular P2; annuloplasty with a 30mm Pantera Bender annuloplasty band; and exclusion of oeft atrial appendage with a 35mm atrial clip 07/08/17 History of left heart catheterization (LHC) Z98.890 LHC: 05/30/2017 History of tonsillectomy Z98.890, Z90.89 History of tubal ligation Z98.51 History of bilateral cataract extraction Z98.41, Z98.42 Surgical History: - - injection of knees, tubal ligation, left total knee replacement Psychiatric History: No pertinent psych hx [employer]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 Paternal Family History: Family History (Last Reviewed 08/21/19 @ 11:15 by Tatianna Ren) Mother Heart disease Grandmother CVA (cerebral vascular accident) History Items: - - from alcohol abuse related complications. Review of Systems Constitutional: Denies: Chills, Fever, Weight Change HEENT: Denies: Head Aches, Sinus Congestion, Sinus Drainage Cardiovascular: Denies: Chest Pain, Palpitations Respiratory: Denies: Cough, Shortness of breath at rest, Sputum production Gastrointestinal: Denies: Abdominal Pain, Nausea, Vomiting Genitourinary: Denies: Dysuria Musculoskeletal: Reports: - - Left foot and ankle pain. Denies: Joint Pain, Joint Tenderness Skin: Reports: - - Erythema left foot and ankle, no open wounds. Healing postop incision left knee. Neurological: Denies: Numbness, Tingling, Focal weakness Psychiatric: Denies: Anxiety, Depression, Homicidal Ideations, Suicidal Ideations Hematologic/ Lymphatic: Denies: Easy Bruising, Easy Bleeding VTE Information - Inpt Only VTE Present on Admission: No VTE Mechan Device Prophylaxis: None VTE Pharm Prophylaxis ordered?: Yes - Physical Exam Vitals/I&O's: Vital Signs Temp Pulse Resp BP Pulse Ox 98.4 F 92 18 123/70 H 97 01/09/20 14:43 01/09/20 14:43 01/09/20 14:43 01/09/20 14:43 01/09/20 14:43 Oxygen Delivery Method Room Air Weight: 221 lb 12.56 oz Body Mass Index (BMI) 35.8 General: Alert, Oriented x3, Cooperative HEENT: Atraumatic, PERRLA, EOMI, Normocephalic Neck: Supple, No JVD, Negative Carotid Bruits Lungs: Clear to auscultation, Normal air movement Cardiovascular: Regular rate, Regular Rhythm, Normal S1, Normal S2, No murmurs Abdomen: Bowel Sounds Present, Soft, Non Tender, Non-Distended Extremities: No clubbing, No cyanosis Skin: No breakdown, - - Left foot erythema, swelling. post op left knee incision healing without evidence of infection. Musculoskeletal: No Tenderness to Palpation of Joints or Extremities Neurological: Cranial nerves II-XII grossly intact Psych/Mental Status: Normal Affect, Appropriate Laboratory Results 01/09/20 15:20: WBC 7.4, RBC 3.83 L, Hgb 11.7 L, Hct 36.2 L, MCV 94.5, MCH 30.5, MCHC 32.3, RDW Std Deviation 45.0 H, RDW Coeff of Carl 13.1, Plt Count 245, MPV 9.0, Immature Gran % (Auto) 0.300, Neut % (Auto) 73.6 H, Lymph % (Auto) 11.2 L, [place] % (Auto) 14.1 H, Eos % (Auto) 0.5, Baso % (Auto) 0.3, Absolute Neuts (auto) 5.4, Absolute Lymphs (auto) 0.82 L, Nucleated RBC % 0 01/09/20 15:20: Sodium 139, Potassium 3.8, Chloride 105, Carbon Dioxide 29.0, Anion Gap 5, BUN 16, Creatinine 0.96, Estim Creat Clear Calc 48.13, Est GFR (MDRD) Af Amer 73, Est GFR (MDRD) Non-Af 61, BUN/Creatinine Ratio 16.7, Glucose 106, Calcium 9.0 Current Medications Cefazolin Sodium () 1 gm in 50 mls @ 100 mls/hr IV X1 ONE Stop: 01/09/20 16:45 Assessment/Plan All Active Problems (Last Reviewed 08/21/19 @ 11:15 by Tatianna Ren) Bilateral pleural effusion (Resolved) 1. Left lower extremity gout versus cellulitis-patient started colchicine early this morning with worsening of symptoms following. Afebrile. No leukocytosis. Continue IV cefazolin empirically. Begin prednisone 20 mg daily x3 doses. Elevate left lower extremity. PRN pain regimen. 2. Gout-patient started as needed colchicine early this morning. Hold. Tx per above. 3. Hypertension-stable, continue metoprolol, Lasix regimen. 4. Mitral valve repair-stable on prior echo 04/2018. 5. Mild Pulmonary hypertension-echocardiogram April 2018 with RVSP 33 mmHg. 6. Mild CAD- Follows with Dr. Lee. Stable. Continue beta-veronika. Not on aspirin, statin. 7. Chronic diastolic CHF- continue home lasix regimen. Echocardiogram April 2018 with EF 60%. DVT Prophylaxis- Lovenox sc This patient was seen by LILLY Espinal under the supervision of Dr. Tomas.
[2020-01-09] MEDS: Cefazolin 1 GM/50 ML BAG IV ×2 (16:35→22:27)
[2020-01-09 16:38] VITALS: BP 123/68; PULSE 98; RESP 16; TEMP 36.7; O2SAT 98
[2020-01-09 17:32] LABS: Uric Acid 7.7 mg/dL (2.6-6.0)
[2020-01-09 17:36] VITALS: BMI 35.8
[2020-01-09 17:39] VITALS: BP 122/86; PULSE 104; RESP 18; TEMP 36.8; O2SAT 98
[2020-01-09] MEDS: oxyCODONE 5 MG Tablet 10 MG PO ×2 (17:46→22:26)
[2020-01-09] MEDS: predniSONE 20 MG Tablet PO (17:46)
[2020-01-09 20:40] VITALS: BP 127/75; PULSE 100; RESP 18; TEMP 37.1; O2SAT 93
[2020-01-09 22:27] VITALS: BP 127/75; PULSE 100
[2020-01-09] MEDS: 0.9% Saline Lock 10 ML Syringe IV (22:27)
[2020-01-09] MEDS: Metoprolol Tartrate 25 MG Tablet PO (22:27)
[2020-01-09] MEDS: busPIRone 5 MG Tablet PO (23:36)
[2020-01-10] VITALS (7 sets, daily range): BP systolic 111–127; BP diastolic 57–82; PULSE 87–90; RESP 18; TEMP 36.4–36.9; O2SAT 95–98
[2020-01-10] MEDS: oxyCODONE 5 MG Tablet 10 MG PO ×4 (04:01→21:46)
[2020-01-10] MEDS: Cefazolin 1 GM/50 ML BAG IV (05:27)
[2020-01-10] MEDS: Enoxaparin 40 MG/0.4 ML Syringe SC (05:27)
[2020-01-10] MEDS: predniSONE 20 MG Tablet PO (07:38)
[2020-01-10] MEDS: busPIRone 5 MG Tablet PO ×2 (10:24→21:46)
[2020-01-10] MEDS: Metoprolol Tartrate 25 MG Tablet PO ×2 (10:25→21:46)
[2020-01-10] MEDS: Furosemide 40 MG Tablet PO (10:25)
[2020-01-10] MEDS: Pantoprazole Sodium 40 MG Tablet PO (10:25)
--- NOTE | 2020-01-10 13:22 | PCM.PROGNOTE ---
<Siri Au - Last Filed: 01/10/20 13:37> Subjective: Patient seen and examined. Reports significant improvement in pain left foot with notable improvement in redness and swelling as well. Reports she is still not able to bear weight left foot. - Physical Exam Vitals/I&O's: Vital Signs Temp Pulse Resp BP Pulse Ox 97.5 F L 88 18 117/69 98 01/10/20 07:40 01/10/20 10:25 01/10/20 07:40 01/10/20 10:25 01/10/20 07:40 Oxygen Delivery Method Room Air Weight: 221 lb 12.56 oz Body Mass Index (BMI) 35.8 Intake and Output for Last 24 Hours 01/08/20 01/09/20 01/10/20 23:59 23:59 23:59 Intake Total 350 / 350 800 / 800 Output Total 1200 / 1200 Balance 350 / -250 -400 / -400 General: Alert, Oriented x3, Cooperative HEENT: Atraumatic, PERRLA, EOMI, Normocephalic Neck: Supple, No JVD, Negative Carotid Bruits Lungs: Clear to auscultation, Normal air movement Cardiovascular: Regular rate, Regular Rhythm, Normal S1, Normal S2, No murmurs Abdomen: Bowel Sounds Present, Soft, Non Tender, Non-Distended Extremities: No clubbing, No cyanosis, No edema, Capillary Refill Less than 3 Seconds Skin: No rashes, No breakdown, - - Left foot redness and swelling improved Musculoskeletal: No Tenderness to Palpation of Joints or Extremities Neurological: Cranial nerves II-XII grossly intact, Neuro grossly intact Psych/Mental Status: Normal Affect, Appropriate Laboratory Results 01/09/20 15:20: WBC 7.4, RBC 3.83 L, Hgb 11.7 L, Hct 36.2 L, MCV 94.5, MCH 30.5, MCHC 32.3, RDW Std Deviation 45.0 H, RDW Coeff of Carl 13.1, Plt Count 245, MPV 9.0, Immature Gran % (Auto) 0.300, Neut % (Auto) 73.6 H, Lymph % (Auto) 11.2 L, Hall % (Auto) 14.1 H, Eos % (Auto) 0.5, Baso % (Auto) 0.3, Absolute Neuts (auto) 5.4, Absolute Lymphs (auto) 0.82 L, Nucleated RBC % 0 01/09/20 15:20: Sodium 139, Potassium 3.8, Chloride 105, Carbon Dioxide 29.0, Anion Gap 5, BUN 16, Creatinine 0.96, Estim Creat Clear Calc 48.13, Est GFR (MDRD) Af Amer 73, Est GFR (MDRD) Non-Af 61, BUN/Creatinine Ratio 16.7, Glucose 106, Calcium 9.0 01/09/20 15:20: Uric Acid 7.7 H Current Medications Acetaminophen (Tylenol) 650 mg PO Q6H PRN PRN PRN Reason: Pain Score 1-10/Temp > 100.7 F Buspirone HCl (Buspar) 5 mg PO BID [facility] Last Admin: 01/10/20 10:24 Dose: 5 mg Documented by: Enoxaparin Sodium (Lovenox) 40 mg SC DAILY@0600 [facility] Last Admin: 01/10/20 05:27 Dose: 40 mg Documented by: Furosemide (Lasix) 40 mg PO DAILY [facility] Last Admin: 01/10/20 10:25 Dose: 40 mg Documented by: Loratadine (Claritin) 10 mg PO DAILY PRN PRN Reason: ALLERGIES Metoprolol Tartrate (Lopressor (Beta Joss)) 25 mg PO BID [facility] Last Admin: 01/10/20 10:25 Dose: 25 mg Documented by: Morphine Sulfate () 1 mg IV Q3H PRN PRN PRN Reason: Pain Score 6-10/10 Ondansetron HCl (Zofran) 4 mg IV Q8H PRN PRN PRN Reason: NAUSEA/VOMITING Oxycodone HCl (Oxyir) 10 mg PO Q4H PRN PRN PRN Reason: Pain Score 4-5/10 Last Admin: 01/10/20 10:28 Dose: 10 mg Documented by: Pantoprazole Sodium (Protonix) 40 mg PO DAILY [facility] Last Admin: 01/10/20 10:25 Dose: 40 mg Documented by: Potassium Chloride (K-Dur) 20 meq PO DAILYCM [facility] Last Admin: 01/10/20 07:38 Dose: 20 meq Documented by: Prednisone () 20 mg PO DAILY@0800 [facility] Last Admin: 01/10/20 07:38 Dose: 20 mg Documented by: Sodium Chloride () 10 - 40 ml IV UD PRN PRN Reason: SALINE FLUSH Last Admin: 01/09/20 22:27 Dose: 10 ml Documented by: Medical Necessity - Tobacco Use Smoking Status: Former smoker Assessment/Plan All Active Problems (Last Reviewed 08/21/19 @ 11:15 by Tatianna Ren) Bilateral pleural effusion (Resolved) 1. Acute left foot gouty arthritis- Prednisone 20 mg daily. Elevate left lower extremity. PRN pain regimen. Recent left total knee replacement 12/21/2019 which appears stable. No evidence of cellulitis. Antibiotics discontinued. PT/OT. 2. Hx Gout-patient recently given Rx for PRN colchicine. Plan to hold at this time and treat with course of prednisone as noted above. 3. Hypertension-stable, continue metoprolol, Lasix regimen. 4. Mitral valve repair-stable on prior echo 04/2018. 5. Mild Pulmonary hypertension-echocardiogram April 2018 with RVSP 33 mmHg. 6. Mild CAD- Follows with Dr. Lee. Stable. Continue beta-joss. Not on aspirin, statin. 7. Chronic diastolic CHF- continue home lasix regimen. Echocardiogram April 2018 with EF 60%. DVT Prophylaxis- Lovenox sc This patient was seen by LILLY Espinal under the supervision of Dr. Dacosta. <Dontae Dacosta F - Last Filed: 01/10/20 14:45> - Physical Exam Vitals/I&O's: Vital Signs Temp Pulse Resp BP Pulse Ox 97.5 F L 88 18 117/69 98 01/10/20 07:40 01/10/20 10:25 01/10/20 07:40 01/10/20 10:25 01/10/20 07:40 Oxygen Delivery Method Room Air Weight: 221 lb 12.56 oz Body Mass Index (BMI) 35.8 Intake and Output for Last 24 Hours 01/08/20 01/09/20 01/10/20 23:59 23:59 23:59 Intake Total 350 / 350 800 / 800 Output Total 1200 / 1200 Balance 350 / -250 -400 / -400 Laboratory Results 01/09/20 15:20: WBC 7.4, RBC 3.83 L, Hgb 11.7 L, Hct 36.2 L, MCV 94.5, MCH 30.5, MCHC 32.3, RDW Std Deviation 45.0 H, RDW Coeff of Carl 13.1, Plt Count 245, MPV 9.0, Immature Gran % (Auto) 0.300, Neut % (Auto) 73.6 H, Lymph % (Auto) 11.2 L, Hall % (Auto) 14.1 H, Eos % (Auto) 0.5, Baso % (Auto) 0.3, Absolute Neuts (auto) 5.4, Absolute Lymphs (auto) 0.82 L, Nucleated RBC % 0 01/09/20 15:20: Sodium 139, Potassium 3.8, Chloride 105, Carbon Dioxide 29.0, Anion Gap 5, BUN 16, Creatinine 0.96, Estim Creat Clear Calc 48.13, Est GFR (MDRD) Af Amer 73, Est GFR (MDRD) Non-Af 61, BUN/Creatinine Ratio 16.7, Glucose 106, Calcium 9.0 01/09/20 15:20: Uric Acid 7.7 H Current Medications Acetaminophen (Tylenol) 650 mg PO Q6H PRN PRN PRN Reason: Pain Score 1-10/Temp > 100.7 F Buspirone HCl (Buspar) 5 mg PO BID [facility] Last Admin: 01/10/20 10:24 Dose: 5 mg Documented by: Enoxaparin Sodium (Lovenox) 40 mg SC DAILY@0600 [facility] Last Admin: 01/10/20 05:27 Dose: 40 mg Documented by: Furosemide (Lasix) 40 mg PO DAILY [facility] Last Admin: 01/10/20 10:25 Dose: 40 mg Documented by: Loratadine (Claritin) 10 mg PO DAILY PRN PRN Reason: ALLERGIES Metoprolol Tartrate (Lopressor (Beta Joss)) 25 mg PO BID [facility] Last Admin: 01/10/20 10:25 Dose: 25 mg Documented by: Morphine Sulfate () 1 mg IV Q3H PRN PRN PRN Reason: Pain Score 6-10/10 Ondansetron HCl (Zofran) 4 mg IV Q8H PRN PRN PRN Reason: NAUSEA/VOMITING Oxycodone HCl (Oxyir) 10 mg PO Q4H PRN PRN PRN Reason: Pain Score 4-5/10 Last Admin: 01/10/20 14:38 Dose: 10 mg Documented by: Pantoprazole Sodium (Protonix) 40 mg PO DAILY [facility] Last Admin: 01/10/20 10:25 Dose: 40 mg Documented by: Potassium Chloride (K-Dur) 20 meq PO DAILYCM [facility] Last Admin: 01/10/20 07:38 Dose: 20 meq Documented by: Prednisone () 20 mg PO DAILY@0800 [facility] Last Admin: 01/10/20 07:38 Dose: 20 mg Documented by: Sodium Chloride () 10 - 40 ml IV UD PRN PRN Reason: SALINE FLUSH Last Admin: 01/09/20 22:27 Dose: 10 ml Documented by: Addendum: Dr. Dacosta I personally examined the patient and reviewed the chart. I agree with the above. 74-year-old female with history of gout presenting with what was thought to either be a gout flare or acute cellulitis. She was started on prednisone because she had only taken 1 dose of colchicine without any significant improvement as well as Ancef. It does appear that this is likely a gout flare and therefore her antibiotics were discontinued. We will continue with the prednisone for another day and see if she is able to ambulate tomorrow. If she is able to ambulate tomorrow then can discharge home either on a course of prednisone for a week or for her to resume her colchicine. OBSV E&M: 15023 Subsequent observation care L2
[2020-01-10] MEDS: Mag Hydrox/Al Hydrox/Simeth 30 ML UDC PO (16:04)
[2020-01-11 02:40] VITALS: BP 130/66; PULSE 85; RESP 18; TEMP 36.6; O2SAT 98
[2020-01-11] MEDS: oxyCODONE 5 MG Tablet 10 MG PO ×3 (02:42→14:07)
[2020-01-11] MEDS: 0.9% Saline Lock 10 ML Syringe IV (06:12)
[2020-01-11] MEDS: Enoxaparin 40 MG/0.4 ML Syringe SC (06:12)
[2020-01-11] MEDS: Acetaminophen 325 MG Tablet 650 MG PO (06:14)
[2020-01-11 08:13] VITALS: BP 114/59; PULSE 95; RESP 18; TEMP 36.4; O2SAT 97
[2020-01-11 08:16] VITALS: PULSE 95
[2020-01-11] MEDS: Pantoprazole Sodium 40 MG Tablet PO (08:16)
[2020-01-11] MEDS: Furosemide 40 MG Tablet PO (08:16)
[2020-01-11] MEDS: Metoprolol Tartrate 25 MG Tablet PO (08:16)
[2020-01-11] MEDS: busPIRone 5 MG Tablet PO (08:16)
[2020-01-11] MEDS: predniSONE 20 MG Tablet PO (08:16)
--- NOTE | 2020-01-11 11:43 | PCM.DC ---
You will use the following diet at home:: No restrictions Discharge Activity: Return to Normal Activity Call your doctor if you observe: Fever of 101 or Higher, Shortness of breath, Dizziness, Uncontrolled pain Allergies/Adverse Reactions: Allergies codeine Allergy (Unknown, Verified 08/21/19 11:11) Rash tramadol Allergy (Verified 08/21/19 11:11) Itching atorvastatin [From Lipitor] Adverse Reaction (Verified 08/21/19 11:11) hives and itching Medications to take at Discharge Omeprazole 40 mg PO DAILY 03/28/18 furosemide 40 mg tablet 40 mg PO DAILY #90 tab 07/21/18 potassium chloride 20 mEq tablet,extended release(part/cryst) 20 meq PO DAILY #90 tab 11/25/18 metoprolol tartrate 25 mg tablet 25 mg PO BID #60 tab 06/15/19 colchicine 0.6 mg tablet 0.6 mg PO DAILY PRN 08/21/19 loratadine 10 mg tablet 10 mg PO DAILY PRN 08/21/19 Buspirone HCl 5 mg PO BID 01/09/20 Prednisone 10 mg PO DAILY #5 tab 01/11/20 The following prescriptions were given: Prednisone 10 mg PO DAILY #5 tab Transmission Status: Pending to [facility] Primary Care Physician: Tabatha Solano MD [Primary Care Provider] - Please follow up with your Primary Care Physician in: 3-5 Days Test Results: Test results from this visit will be discussed in further detail at your follow-up appointment, if applicable. Please Follow Up With: Orthopedic Medicine When: As scheduled Proposed Discharge Date: 01/11/20
--- NOTE | 2020-01-11 12:04 | CASEMGMT ---
RN DARREL Note: Intro role of CM to patient to discuss CM assessment and BERRY form. Explained BERRY form to pt for gout/cellulitis care in Observation status. Discussed self administered medication portion and # given for patient financial services. Pt voiced understanding. PCP: Dr. Solano Specialist: Sanaz Levine, ortho Pharmacy: [facility] ---Pt states she has been receiving [facility] Physical therapy at home. concerned re: having this resumed as she was told this would require another order. Pt does not know which agency she was active with. She attempted to call family, but was unable to reach anyone. MAGEN ROJO attempted to call Dr. Watts's office @ [phone]. Per Alma, telephone operator receptionist. Pt had [facility] up HHC through [facility] ; fax: . -call to home care: Spoke with Rosa @ Home care. Explained pt is @ [facility] under observation status since Thursday January 09, 2020 and plan is for discharge today. Per Rosa, no new order is needed. Requesting H/P and DC instructions. PT has phys therapy appt at her home tomorrow and MAGEN ROJO let Rosa know pt would like to keep this appt. Rosa states she will let staff know of above. Requested clinical faxed. -Pt updated that HHC was updated and no new order is required from hospital. Pt very grateful for assistance. Pt states she has all equipment at home and no new dc needs are identified. DC PLAN: Home. Dre SAGE RN ACM
--- NOTE | 2020-01-11 13:55 | DS.PCM_ITS ---
<Siri Au - Last Filed: 01/11/20 14:00> Discharge Date and Diagnosis Date of Admission: 01/09/20 Date of Discharge: 01/11/20 - Primary Discharge Diagnosis 1. Acute left foot gouty arthritis 2. Hx Gout 3. Hypertension 4. Mitral valve repair 5. Mild Pulmonary hypertension 6. Mild CAD 7. Chronic diastolic CHF - Secondary Discharge Diagnosis Chronic Problems (Last Reviewed 08/21/19 @ 11:15 by Tatianna Ren) Pulmonary hypertension (Chronic) History of mitral valve repair (Chronic 07/08/17) Complex mitral valve repair with triangular P2; annuloplasty with a 30mm Pantera Bender annuloplasty band; and exclusion of oeft atrial appendage with a 35mm atrial clip 07/08/17 Nonrheumatic mitral (valve) insufficiency (Chronic) MVR Atherosclerotic heart disease of [place] coronary artery without angina pectoris (Chronic) Heart murmur (Chronic) Palpitations (Chronic) Acute diastolic CHF (congestive heart failure) (Chronic) Hospital Course and Treatment Imaging Results: Diagnostic Data Foot X-Ray 01/09/20 15:30 IMPRESSION: No fracture or erosive process. Soft tissue swelling, nonspecific. Degenerative changes of the first MTP joint. Electronically Signed: Tyrell Sutherland MD (Brooks) at 15:41 EDT , Service support , Operations: None Procedures: None Summary of Care Provided: The patient is a 74 year old F admitted 01/09/2020 due to left foot pain with redness and swelling. 1. Acute left foot gouty arthritis- Prednisone 20 mg daily for 4 days, then 10 mg for 3 days, then discontinue. Elevate left lower extremity. Recent left total knee replacement 12/21/2019 which appears stable. No evidence of cellulitis. Antibiotics discontinued. PT/OT. Patient now able to ambulate with significant improvement in left foot pain. Home with home health and continued PT. 2. Hx Gout-patient recently given Rx for PRN colchicine. Course of prednisone as noted above. Patient may use colchicine in the future if recurrent gout. 3. Hypertension-stable, continue metoprolol, Lasix regimen. 4. Mitral valve repair-stable on prior echo 04/2018. 5. Mild Pulmonary hypertension-echocardiogram April 2018 with RVSP 33 mmHg. 6. Mild CAD- Follows with Dr. Lee. Stable. Continue beta-joss. Not on aspirin, statin. 7. Chronic diastolic CHF- continue home lasix regimen. Echocardiogram April 2018 with EF 60%. General: Alert, Oriented x3, Cooperative HEENT: Atraumatic, PERRLA, EOMI, Normocephalic Neck: Supple, No JVD, Negative Carotid Bruits Lungs: Clear to auscultation, Normal air movement Cardiovascular: Regular rate, Regular Rhythm, Normal S1, Normal S2, No murmurs Abdomen: Bowel Sounds Present, Soft, Non Tender, Non-Distended Extremities: No clubbing, No cyanosis, No edema, Capillary Refill Less than 3 Seconds Skin: No rashes, No breakdown, - - Left foot redness and swelling improved Musculoskeletal: No Tenderness to Palpation of Joints or Extremities Neurological: Cranial nerves II-XII grossly intact, Neuro grossly intact Psych/Mental Status: Normal Affect, Appropriate Patient seen and examined prior to discharge. Physical assessment as noted above. Patient is stable for discharge with follow up recommendations as noted above. This patient was seen by LILLY Espinal under the supervision of Dr. Dacosta. - Physical Exam Vitals/I&O's: Vital Signs Temp Pulse Resp BP Pulse Ox 97.5 F L 95 18 114/59 L 97 01/11/20 08:13 01/11/20 08:16 01/11/20 08:13 01/11/20 08:13 01/11/20 08:13 Oxygen Delivery Method Room Air Weight: 221 lb 12.56 oz Body Mass Index (BMI) 35.8 Intake and Output for Last 24 Hours 01/09/20 01/10/20 01/11/20 23:59 23:59 23:59 Intake Total 350 / 350 1600 / 1600 Output Total 1200 / 1800 1050 / 1050 Balance 350 / -250 400 / -200 -1050 / -1050 Current Medications Acetaminophen (Tylenol) 650 mg PO Q6H PRN PRN PRN Reason: Pain Score 1-10/Temp > 100.7 F Last Admin: 01/11/20 06:14 Dose: 650 mg Documented by: Al Hydroxide/Mg Hydroxide (Mylanta Ii) 30 ml PO Q6H PRN PRN PRN Reason: DYSPEPSIA/INDIGESTION Last Admin: 01/10/20 16:04 Dose: 30 ml Documented by: Buspirone HCl (Buspar) 5 mg PO BID [facility] Last Admin: 01/11/20 08:16 Dose: 5 mg Documented by: Enoxaparin Sodium (Lovenox) 40 mg SC DAILY@0600 [facility] Last Admin: 01/11/20 06:12 Dose: 40 mg Documented by: Furosemide (Lasix) 40 mg PO DAILY [facility] Last Admin: 01/11/20 08:16 Dose: 40 mg Documented by: Loratadine (Claritin) 10 mg PO DAILY PRN PRN Reason: ALLERGIES Metoprolol Tartrate (Lopressor (Beta Joss)) 25 mg PO BID [facility] Last Admin: 01/11/20 08:16 Dose: 25 mg Documented by: Morphine Sulfate () 1 mg IV Q3H PRN PRN PRN Reason: Pain Score 6-10/10 Ondansetron HCl (Zofran) 4 mg IV Q8H PRN PRN PRN Reason: NAUSEA/VOMITING Oxycodone HCl (Oxyir) 10 mg PO Q4H PRN PRN PRN Reason: Pain Score 4-5/10 Last Admin: 01/11/20 09:39 Dose: 10 mg Documented by: Pantoprazole Sodium (Protonix) 40 mg PO DAILY [facility] Last Admin: 01/11/20 08:16 Dose: 40 mg Documented by: [facility] Last Admin: 01/11/20 08:16 Dose: 20 meq Documented by: Prednisone () 20 mg PO DAILY@0800 [facility] Last Admin: 01/11/20 08:16 Dose: 20 mg Documented by: Sodium Chloride () 10 - 40 ml IV UD PRN PRN Reason: SALINE FLUSH Last Admin: 01/11/20 06:12 Dose: 10 ml Documented by: Discharge Diet: No Restrictions Discharge Activity: Return to Normal Activity Call your doctor if you observe: Fever of 101 or Higher, Shortness of breath, Dizziness, Uncontrolled pain Home Medications: Medications to take at Discharge Omeprazole 40 mg PO DAILY 03/28/18 furosemide 40 mg tablet 40 mg PO DAILY #90 tab 07/21/18 potassium chloride 20 mEq tablet,extended release(part/cryst) 20 meq PO DAILY #90 tab 11/25/18 metoprolol tartrate 25 mg tablet 25 mg PO BID #60 tab 06/15/19 colchicine 0.6 mg tablet 0.6 mg PO DAILY PRN 08/21/19 loratadine 10 mg tablet 10 mg PO DAILY PRN 08/21/19 Buspirone HCl 5 mg PO BID 01/09/20 Prednisone 10 mg PO DAILY #5 tab 01/11/20 Following Prescrptions Were Given to Patient: Prednisone 10 mg PO DAILY #5 tab Transmission Status: Received by [facility] Primary Care Physician: Tabatha Solano MD [Primary Care Provider] - Please follow up with your Primary Care Physician in: 3-5 Days Please Follow Up With: Orthopedic Medicine When: As scheduled Disposition: Home with Home Health Minutes spent on discharge:: 35 Patient Condition:: Stable Medical Necessity - Tobacco Use Smoking Status: Former smoker Meaningful Use Info Meaningful Use Diagnoses (Choose all that apply): None applicable <Dontae Dacosta - Last Filed: 01/11/20 14:20> Discharge Date and Diagnosis - Secondary Discharge Diagnosis Chronic Problems (Last Reviewed 08/21/19 @ 11:15 by Tatianna Ren) Pulmonary hypertension (Chronic) History of mitral valve repair (Chronic 07/08/17) Complex mitral valve repair with triangular P2; annuloplasty with a 30mm Pantera Bender annuloplasty band; and exclusion of oeft atrial appendage with a 35mm atrial clip 07/08/17 Nonrheumatic mitral (valve) insufficiency (Chronic) MVR Atherosclerotic heart disease of [place] coronary artery without angina pectoris (Chronic) Heart murmur (Chronic) Palpitations (Chronic) Acute diastolic CHF (congestive heart failure) (Chronic) Hospital Course and Treatment Summary of Care Provided: The patient is a 74 year old F [] - Physical Exam Vitals/I&O's: Vital Signs Temp Pulse Resp BP Pulse Ox 98.6 F 90 16 136/70 H 100 01/11/20 13:59 01/11/20 13:59 01/11/20 13:59 01/11/20 13:59 01/11/20 13:59 Oxygen Delivery Method Room Air Weight: 221 lb 12.56 oz Body Mass Index (BMI) 35.8 Intake and Output for Last 24 Hours 01/09/20 01/10/20 01/11/20 23:59 23:59 23:59 Intake Total 350 / 350 1600 / 1600 400 / 400 Output Total 1200 / 1800 1050 / 1050 Balance 350 / -250 400 / -200 -650 / -650 Current Medications Acetaminophen (Tylenol) 650 mg PO Q6H PRN PRN PRN Reason: Pain Score 1-10/Temp > 100.7 F Last Admin: 01/11/20 06:14 Dose: 650 mg Documented by: Al Hydroxide/Mg Hydroxide (Mylanta Ii) 30 ml PO Q6H PRN PRN PRN Reason: DYSPEPSIA/INDIGESTION Last Admin: 01/10/20 16:04 Dose: 30 ml Documented by: Buspirone HCl (Buspar) 5 mg PO BID [facility] Last Admin: 01/11/20 08:16 Dose: 5 mg Documented by: Enoxaparin Sodium (Lovenox) 40 mg SC DAILY@0600 [facility] Last Admin: 01/11/20 06:12 Dose: 40 mg Documented by: Furosemide (Lasix) 40 mg PO DAILY [facility] Last Admin: 01/11/20 08:16 Dose: 40 mg Documented by: Loratadine (Claritin) 10 mg PO DAILY PRN PRN Reason: ALLERGIES Metoprolol Tartrate (Lopressor (Beta Joss)) 25 mg PO BID [facility] Last Admin: 01/11/20 08:16 Dose: 25 mg Documented by: Morphine Sulfate () 1 mg IV Q3H PRN PRN PRN Reason: Pain Score 6-10/10 Ondansetron HCl (Zofran) 4 mg IV Q8H PRN PRN PRN Reason: NAUSEA/VOMITING Oxycodone HCl (Oxyir) 10 mg PO Q4H PRN PRN PRN Reason: Pain Score 4-5/10 Last Admin: 01/11/20 14:07 Dose: 10 mg Documented by: Pantoprazole Sodium (Protonix) 40 mg PO DAILY [facility] Last Admin: 01/11/20 08:16 Dose: 40 mg Documented by: Potassium Chloride (K-Dur) 20 meq PO DAILYCM [facility] Last Admin: 01/11/20 08:16 Dose: 20 meq Documented by: Prednisone () 20 mg PO DAILY@0800 [facility] Last Admin: 01/11/20 08:16 Dose: 20 mg Documented by: Sodium Chloride () 10 - 40 ml IV UD PRN PRN Reason: SALINE FLUSH Last Admin: 01/11/20 06:12 Dose: 10 ml Documented by: Addendum: Dr. Dacosta I personally examined the patient and reviewed the chart. I agree with the above. 74-year-old female who presented with left foot pain and swelling that was consistent with her previous gout flares was initially thought to also possibly have cellulitis. However she did improve with colchicine and prednisone and therefore her Ancef was discontinued. She continued to have resolution of her leukocytosis as well as remaining afebrile. She was discharged on prednisone she can likely resume her home colchicine. She is to follow-up with her PCP for the steroid therapy as well as the possibility of having allopurinol added to her regimen for chronic control of her gout. OBSV E&M: 80712 Observation care discharge
[2020-01-11 13:59] VITALS: BP 136/70; PULSE 90; RESP 16; TEMP 37; O2SAT 100
== END 2020-01-11 14:25 | disposition home health service (06) ==
LOC: ED 15:20 → MS3 18:34
PROVIDERS: Nurse Practitioner Family; Admitting Provider Internal Medicine; Emergency Provider Emergency Medicine; PCP Internal Medicine; Visit Provider Family Medicine
DX: M10.9 Gout, unspecified (principal); I27.20 Pulmonary hypertension, unspecified; I11.0 Hypertensive heart disease with heart failure; I50.32 Chronic diastolic (congestive) heart failure; I25.10 Atherosclerotic heart disease of native coronary artery without angina pectoris; Z79.899 Other long term (current) drug therapy; Z79.52 Long term (current) use of systemic steroids; Z87.891 Personal history of nicotine dependence
CPT/HCPCS: 73630; 80048; 84550; 85025; 96365; 96366; 96372; 97116; 97162; 97166; 97530; 97535; 99218; 99285; J7050; A4216; G0378

== ENCOUNTER → 2020-02-02 16:04 | Outpatient (CLI) | payer MEDICARE, SELFPAY ==
[2020-01-09 17:36] VITALS: BMI 35.8
[2020-02-02 16:54] LABS: BNP,B-Type NATRIURETIC PEPTIDE 39.9 pg/mL (0-100)
== END ==
PROVIDERS: PCP Internal Medicine; Referring Provider Nurse Practitioner; Visit Provider Nurse Practitioner
DX: R06.02 Shortness of breath (principal)
CPT/HCPCS: 83880

== ENCOUNTER 2020-02-10 12:53 | Outpatient (RCR) | payer MEDICARE, SELFPAY ==
[2020-01-09 17:36] VITALS: BMI 35.8
--- NOTE | 2020-02-10 16:59 | HP.PTEVAL_ITS ---
Patient's Visit Information DEAN HANNA is a 74 year old F referred to Physical Therapy by CAROLE EISENBERG with a diagnosis of L TKA. Date of Evaluation: 02/10/20 Physical Therapist: Joe Murphy DPT - Visit Plan Frequency: 1-2x /Week Duration: 4-6 Weeks Plan: Start with strengthening, walking program. Pt. given exercises for HEP. Pt. to trial her exercises on her own for 1-2 weeks and follow up with PT then. Pt. to follow up sooner if needed. - Subjective Subjective: Pt. is here today for her initial evaluation S/P L TKA. DOS: Dec 21. Pt. arrives today with SPC. Pt. reports I have been doing pretty well.' Pt. reports doing HH for the last few weeks. Pt. reports minimal pain in L knee at this point in time. She denies N/T in either LE. Pt. is pleased with process thus far. Pt. reports still having a little trouble walking up and down the stairs, but other than that is doing well. Pt. is hopeful to get back to gym exercises adn water aerobics once able. - Pain L knee Pain Intensity (Out of 10): 1 Pain Intensity Range: 0, 3 R knee Pain Intensity (Out of 10): 2 Pain Intensity Range: 0, 5 - Objective POSTURE: Pt. to good wt. shift in stance. Pt. has slight L knee vaglus, but otherwise normal. PALPATION: Pt. has good healing incision. Pt. has no signs of infection. Slight edema throughout knee, non pitting. NEURO: normal throughout. ROM: L knee 0-0-124deg PROM, AROM 0-1-122deg. Pt. has slight pain at end range of motions. MMT: LLE: ankle 5/5 throughout; knee- ext 4+/5, flexion 4/5; hip- flexion 4+/5, abd 4+/5, ext 4/5. Core strenght- poor+. GAIT: Pt. ambulates with SPC with correct mechanics. Pt. has slight antalgic pattern during L stance phase. STAIRS: Pt. is able to complete with use of BHR, but is methodical in pattern. Minimal pain noted. - Goals Goal 1:: LTG: Pt. to be I with HEP. Goal Time Frame: 4-6 Weeks Goal 2:: LTG: Pt. to maintain 0-0-120deg of L knee ROM without increase in symptoms. Goal Time Frame: 4-6 Weeks Goal 3:: LTG: Pt. to ambulate community level distances without AD without increase in symptoms. Goal Time Frame: 4-6 Weeks Goal 4:: STG: Pt. to sleep throughout the night without increase in symptoms. Goal Time Frame: 2-4 Weeks Goal 5:: LTG: Pt. to have 5-/5 strength throughout LLE. Goal Time Frame: 4-6 Weeks Goal 6:: LTG: Pt. to negotiate steps with reciprocal pattern withotu increase in symptoms with use of 1 HR. Goal Time Frame: 4-6 Weeks - Rehabilitation Potential Physical Therapy Diagnosis: Pt. has signs and symptoms consistent with L TKA, DOS: 12/21/19. Pt. Has good ROM, some strength deficits. Pt. is overall doing very well. Pt. has a solid exercise program and is progresing well. I added some exercise to progress her routine. Pt. desires to trial this on her own for a 1 or 2 weeks. Pt. desires to come back once able to work on some gym exercises. Rehabilitation Potential: Excellent - Anticipated Interventions Patient/Client Instruction: Educate patient on: Condition, Plan of Care, Risk Factors, Benefits of Fitness Program For the Purpose of:: To improve decision making, To facilitate caregiver knowledge, To improve self management, To prevent re-injury, To improve ability to perform tasks related to life management, To improve tolerance to ADL's Therapeutic Exercise to Include: Strength training, Power training, Endurance training, Postural training, Flexibilty training, Gait and locomotor training, Passive ROM, Active ROM For the Purpose of:: To decrease pain, To decrease swelling/inflammation, To increase ROM, To improve nutrient delivery to tissue, To improve gait and loc omotor functions, To improve health of tissue, To decrease soft tissue restriction, To increase flexibility/ROM, To improve endurance, To improve balance Cryotherapy (ice pack, ice massage): Yes Vasopneumatic device: Yes For the Purpose of:: To decrease pain, To decrease swelling/inflammation, To increase ROM, To improve nutrient delivery to tissue, To improve health of tissue, To decrease soft tissue restriction Thank you for the opportunity to evaluate your patient. For Medicare and Medicare HMO plans, please review the plan of care and approve it. It will need to be FAXED BACK to us at [phone] for Medicare purposes. For Medicare only, by signing this I certify the plan of care. Please let me know if there are questions or concerns regarding this plan of care. Physician Signature: Date:
== END 2020-02-10 19:00 | disposition home or self-care (01) ==
LOC: PT 12:53
PROVIDERS: PCP Internal Medicine
DX: M25.562 Pain in left knee (principal); G89.18 Other acute postprocedural pain; Z96.652 Presence of left artificial knee joint
CPT/HCPCS: 97161

== ENCOUNTER 2020-11-02 11:00 | Outpatient (RCR) | payer MEDICARE, SELFPAY ==
[2020-04-27 09:35] VITALS: BMI 33.3
--- NOTE | 2020-10-06 15:53 | HP.PTEVAL_ITS ---
Patient's Visit Information DEAN HANNA is a 75 year old F referred to Physical Therapy by Dr. Dmitry Watts MD with a diagnosis of Right TKR. Date of Evaluation: 10/06/20 Physical Therapist: Zuri Meléndez DPT - Visit Plan Frequency: 2x /Week Duration: 6 Weeks Plan: Aquatic for 2x3 then transition to land 2x3. Focus on LE and core strength/stabilization. Functional mobility - Subjective Left TKR Dec 17, 2019- went great and then she had right TKR Jul 17, 2020. Had home therapy-and then was told she did not need outpatient therapy. Then she saw him for a three month check up and he sent her here. She has no pain but does take Prednisoe and Tylenol. Feels the right knee is weak and wobbly. Is unable to get out of a chair without her arms or stairs without pain for years. Sleep: not disturbed. Takes her a few min when she gets up. Goes without her cane- but uses it for community distances. No falls. Feels 50% of where she wants to be. Fully I with dressing, driving, bathing all ADL's. Still has swelling in the knee and leg. PMHx/Meds: no changes since at heart MD on 04/27/2020- Predisone for her shoulder. - Objective Posture: FH, RS- can correct but is unable to maintain. Gait: antalgic- decrease stance on the right LE. She has flat foot progression. Uses straight cane in clinic. Stairs: asc/desc recip with 2 HR and signficant fear. HR/TR: able with UE A. SLS: weight shift only. Sit to district court administrator 30 sec: 6 with bilateral UE A. Observation: incision well healed. Palpation: tender throughout knee around patella medial and lateral joint line. ROM: 0-128 degrees of ROM. Strength: Ankle: 5/5, Knee: 4/5, Hip: 4/5 throughout Core: fair. Balance: see FGASit to stand:6. Left: 128 Right:125 - Balance Scores Functional Gait Assessment Score: 20 % Disability: 33.3400 - Goals Goal 1:: Patient will be I with HEP and progression Goal Time Frame: 4-6 Weeks Goal 2:: Patient will asc/desc 8 stairs recip with 1 HR Goal Time Frame: 4-6 Weeks Goal 3:: Patient will ambulate >300 feet with normalized gait pattern with LRD Goal Time Frame: 4-6 Weeks Goal 4:: Patient will perform 13 sit to stands in 30 seconds Goal Time Frame: 4-6 Weeks - Rehabilitation Potential Physical Therapy Diagnosis: Patient presents with hypomobility- she has decreased strength, flex and muscular endurance leading to abnormal gait and decreased ability to participate in ADL's. Rehabilitation Potential: Good - Anticipated Interventions Patient/Client Instruction: Educate patient on: Benefits of Fitness Program Therapeutic Exercise to Include: Strength training, Endurance training, Balance training, Coordination, Agility training, Body mechanics, Postural training, Flexibilty training, Gait and locomotor training, Neuromotor development, In an aquatic setting, Passive ROM, Active ROM, Dynamic Lumbar Stabilization, Scapular Strength/Stabilization For the Purpose of:: To improve muscle performance and motor function Thank you for the opportunity to evaluate your patient. For Medicare and Medicare HMO plans, please review the plan of care and approve it. It will need to be FAXED BACK to us at [phone] for Medicare purposes. For Medicare only, by signing this I certify the plan of care. Please let me know if there are questions or concerns regarding this plan of care. Physician Signature: Date:
--- NOTE | 2020-11-02 11:56 | HP.PTDCSUM_ITS ---
It has been my pleasure to treat DEAN HANNA referred by Dr. Dmitry Watts MD, with the diagnosis of Right TKR for a total of 8 visit(s). Discharge Date: Please see the following information for a summary of their discharge status. Subjective: She reports that she is still challenged up/down out of the chair but she is making progress. She is unsure about the stairs- she does them at her daughters who was happy with progress. She is not using her cane anymore and is working towards being more independent with good posture. She still has the burning pains. RLE Pain Intensity (Out of 10): 4 Lumbar Spine Pain Intensity (Out of 10): 4 % Improvement: 80 Objective/Function: Posture: FH, RS- can correct and is able to maintain- but her back is bad. Gait: slightly antalgic- decrease stance on the right LE- no AD. Stairs: asc/desc recip with 1 HR -very slow but able to perform. HR/TR: able with UE A. SLS: weight shift-5 sec SLS on left and 3 seconds on right. Sit to jig inspector 30 sec: 6 with bilateral UE A. Palpation: tender throughout knee around patella medial and lateral joint line. ROM: 0-128 degrees of ROM. Strength: Ankle: 5/5, Knee: 4+/5, Hip: 4/5 throughout Core: fair. Sit to stand:6. Goal 1:: Patient will be I with HEP and progression Goal Progress: Goal Met Goal 2:: Patient will asc/desc 8 stairs recip with 1 HR Goal Progress: Goal Met Goal 3:: Patient will ambulate >300 feet with normalized gait pattern with LRD Goal Progress: Progressing Goal 4:: Patient will perform 13 sit to stands in 30 seconds Goal Progress: Not Progressing Plan: Discharge to I home exercise program provided by KEI florentino PTA If there are questions or concerns regarding this patient's physical therapy, please feel free to call me at [phone]. Thank you for the referral of this patient. Sincerely, Zuri Meléndez DPT
== END 2020-11-02 19:00 | disposition home or self-care (01) ==
LOC: PT 11:00
PROVIDERS: PCP Internal Medicine; Referring Provider Orthopaedic Surgery; Visit Provider Orthopaedic Surgery
DX: M48.061 Spinal stenosis, lumbar region without neurogenic claudication (principal); R29.898 Other symptoms and signs involving the musculoskeletal system; Z96.651 Presence of right artificial knee joint
CPT/HCPCS: 97113; 97162; 97164

== ENCOUNTER → 2021-02-28 12:45 | Outpatient (CLI) | payer MEDICARE, SELFPAY ==
[2021-02-17 09:57] VITALS: BMI 34.0
--- NOTE | 2021-02-28 12:47 | ECHOD_ITS ---
Reason For Study: S/P MV REPAIR Procedure This was a 2D Doppler, Color Flow transthoracic echocardiogram. The study was technically difficult. Exam performed in department. Left Ventricle Normal LV size. Left ventricular systolic function is normal. The estimated ejection fraction is 65 %. Diastolic function is indeterminate. No regional wall motion abnormalities noted. Right Ventricle Normal RV size. Normal systolic function. Atria The left atrium is mildly enlarged. Normal right atrium. No doppler evidence for ASD. Mitral Valve An annuloplasty ring is noted in the mitral position. Trivial transvalvular insufficiency of the mitral valve. Tricuspid Valve Normal tricuspid valve. Mild tricuspid valve insufficiency. Right ventricular systolic pressure estimated to be 29 mmHg. Aortic Valve Trisinus/trileaflet aortic valve. Mild focal aortic valve calcification. Pulmonic Valve The pulmonic valve is not well visualized. Trivial pulmonic valve insufficiency. Great Vessels Normal sized aortic root. Pericardium/Pleural No pericardial effusion. MMode/2D Measurements & Calculations LVIDd: 4.5 cm IVSd: 0.75 cm Ao root diam: 3.4 cm LVIDs: 3.3 cm LVPWd: 0.82 cm RVDd: 3.2 cm FS: 25.9 % LAV(MOD-bp): 64.5 ml LA A4 area: 20.2 cm2 LA dimension(2D): 3.9 cm LAV(MOD-bp) Indexed: 32.5 ml/m2 LAV(MOD-sp2): 58.5 ml LAV(MOD-sp4): 60.2 ml RA A4 area: 15.7 cm2 Time Measurements MV dec time: 0.18 sec Doppler Measurements & Calculations MV E max sander: 96.4 cm/sec Lat Peak E' Sander: 8.3 cm/sec Med Peak E' Sander: 4.5 cm/sec MV A max sander: 128.3 cm/sec E/E' lat: 11.6 E/E' med: 21.6 MV E/A: 0.75 MV V2 max: 133.9 cm/sec MV P1/2t max sander: 97.6 cm/sec Ao V2 max: 111.8 cm/sec MV max P.2 mmHg MV P1/2t: 62.1 msec Ao max P.0 mmHg MV V2 mean: 84.2 cm/sec MV dec slope: 460.5 cm/sec2 MV mean P.1 mmHg MV V2 VTI: 27.5 cm MVA(P1/2t): 3.5 cm2 LV V1 max: 81.6 cm/sec PA V2 max: 76.7 cm/sec TR max sander: 256.0 cm/sec LV V1 max P.7 mmHg TR max P.2 mmHg ECHO/Echo Complete Interpretation Summary The study was technically difficult. Left ventricular systolic function is normal. The estimated ejection fraction is 65 %. The left atrium is mildly enlarged. An annuloplasty ring is noted in the mitral position. Trivial transvalvular insufficiency of the mitral valve. Mild tricuspid valve insufficiency. Mild focal aortic valve calcification. Trivial pulmonic valve insufficiency. Right ventricular systolic pressure estimated to be 29 mmHg. Diastolic function is indeterminate. Ordering Physician: Amor Lee Referring Physician: Tabatha Solano Performed By: Marla Cintron, SAMIRA, RVT
== END ==
PROVIDERS: PCP Internal Medicine; Referring Provider Internal Medicine Cardiovascular Disease; Visit Provider Internal Medicine Cardiovascular Disease
DX: I25.10 Atherosclerotic heart disease of native coronary artery without angina pectoris (principal); I50.31 Acute diastolic (congestive) heart failure; I27.20 Pulmonary hypertension, unspecified; Z98.890 Other specified postprocedural states
CPT/HCPCS: 93306

== ENCOUNTER → 2021-08-21 09:54 | Outpatient (CLI) | payer MEDICARE, SELFPAY | PROVIDERS: PCP Internal Medicine; Visit Provider Physician Assistant Surgical | DX: U07.1 COVID-19 (principal) | CPT/HCPCS: 87635; U0005; U0003 ==

== ENCOUNTER 2021-08-24 13:13 | Outpatient (CLI) | payer MEDICARE, SELFPAY ==
[2021-08-24 13:40] VITALS: BP 117/63; PULSE 71; RESP 16; TEMP 36.8; O2SAT 98; BMI 33.5
[2021-08-24] MEDS: 0.9% Saline Lock 10 ML Syringe IV (13:48)
[2021-08-24 14:18] VITALS: BP 115/58; PULSE 60; RESP 16; TEMP 36.5; O2SAT 100
[2021-08-24 15:19] VITALS: BP 117/70; PULSE 64; RESP 16; TEMP 36.8; O2SAT 98
== END 2021-08-24 15:20 | disposition home or self-care (01) ==
LOC: MS3OUT 13:14 → MS3 13:14
PROVIDERS: PCP Internal Medicine; Referring Provider Nurse Practitioner Adult Health; Visit Provider Nurse Practitioner Adult Health
DX: Z23 Encounter for immunization (principal); U07.1 COVID-19
CPT/HCPCS: J7050; M0245; Q0245; A4216

== ENCOUNTER 2021-09-26 09:36 | Outpatient (RCR) | payer MEDICARE, SELFPAY ==
[2021-09-26 10:04] VITALS: BP 146/90; PULSE 91; TEMP 35.7; BMI 33.5
[2021-09-26 10:27] VITALS: BMI 33.5
--- NOTE | 2021-09-26 14:01 | PCM.WC.HP ---
History of Present Illness Date of Service: 09/26/21 Chief Complaint: Traumatic wound, left pretibial area History of Wound: This is a 76-year-old female who presents with a traumatic wound on the left pretibial area, which occurred as a result of impacting this portion of her left leg against the step bar of a vehicle. The event occurred approximately 6 weeks ago. Patient has been treated previously with a course of oral doxycycline. X-rays of the area revealed no evidence of fracture or osteomyelitis. The patient has been using antibiotic ointment topically, as well as antibacterial spray. Patient denies a history of thrombophlebitis. She does experience mild leg swelling, often at days end. She ambulates liberally without difficulty or leg pain. She sleeps on a flat mattress at night. [facility] Medical History (Updated 09/26/21 @ 14:[address] Roel Ferrari MD) Atherosclerotic heart disease of [place] coronary artery without angina pectoris Bilateral pleural effusion Congestive heart failure GERD (gastroesophageal reflux disease) Gout Hiatal hernia History of pleural effusion Hyperlipidemia Hypertension Nonrheumatic mitral (valve) insufficiency Osteoarthritis Polyarthropathy Pulmonary hypertension Traumatic open wound of left lower leg Home Medications omeprazole 40 mg PO DAILY 03/28/18 [History Last Taken 01/09/20 06:00] potassium chloride 20 mEq tablet,extended release(part/cryst) 20 meq PO DAILY #90 tab 11/25/18 [Rx Last Taken Unknown] loratadine 10 mg tablet 10 mg PO DAILY PRN 08/21/19 [History Last Taken Unknown] buspirone 5 mg PO BID 01/09/20 [History Last Taken 01/09/20 09:00] allopurinol 100 mg tablet 100 mg PO DAILY 04/27/20 [History Last Taken Unknown] aspirin 81 mg tablet,delayed release 81 mg PO DAILY 04/27/20 [History Last Taken Unknown] acetaminophen 500 mg tablet 500 mg PO Q6H PRN 02/17/21 [History Last Taken Unknown] calcium carbonate 500 mg (1,250 mg)-vitamin D3 125 unit tablet 1 tablet PO DAILY 02/17/21 [History Last Taken Unknown] meloxicam 15 mg tablet 15 mg PO DAILY 02/17/21 [History Last Taken Unknown] multivitamin 1 tablet PO DAILY 02/17/21 [History Last Taken Unknown] metoprolol tartrate 25 mg tablet 25 mg PO BID #180 tab 06/27/21 [Rx Last Taken Unknown] furosemide 40 mg tablet 40 mg PO DAILY #90 tab 08/14/21 [Rx Last Taken Unknown] Allergy/AdvReac Type Severity Reaction Status Date / Time codeine Allergy Unknown Rash Verified 08/14/21 09:51 tramadol Allergy Itching Verified 08/14/21 09:51 atorvastatin [From Lipitor] AdvReac hives and Verified 08/14/21 09:51 itching seasonal Allergy Other Uncoded 09/26/21 10:27 Family History Mother Heart disease Grandmother CVA (cerebral vascular accident) Surgical History (Updated 09/26/21 @ 14:[address] Roel Ferrari MD) History of bilateral cataract extraction History of bilateral cataract extraction History of left heart catheterization (LHC) History of left knee replacement History of mitral valve repair (07/08/17) History of right knee joint replacement History of tonsillectomy History of tonsillectomy History of total bilateral knee replacement History of tubal ligation Social History Smoking Status: Former smoker alcohol intake: current alcohol intake frequency: a few times a week Alcohol type: wine substance use type: does not use diet: low salt caffeine: Yes Type: coffee Number of servings: 3 what type of physical activity do you participate in: other details: PT frequency: 3-4 times per week duration: 30-45 minutes/day seatbelt use: always do you feel safe at home: Yes Vital Signs Vital Signs Vital Signs: 09/26/21 10:04 Temperature 96.3 F L Temperature Source Temporal Pulse Rate 91 Blood Pressure 146/90 H Blood Pressure Mean 108 Blood Pressure Source Monitor Blood Pressure Location Left Arm Weight Weight: 208 lb Body Mass Index (BMI) 33.5 Physical Exam Const alert, oriented x3, no apparent distress and well nourished General Appearance: cooperative, comfortable, well kempt and well developed Orientation / Consciousness: awake, oriented to person, oriented to place and oriented to time HEENT normocephalic and head/scalp atraumatic Head and Scalp: normal to inspection, normocephalic and atraumatic External Ear: external ears normal Eyes PERRL and EOMs intact bilaterally General Eye: normal appearance of both eyes Resp normal respiratory effort, normal air movement, no retractions and no use of accessory muscles Effort and Inspection: able to speak in complete sentences Extremity no calf tenderness General Extremity: Negative for clubbing or cyanosis Skin Wound Narrative: No significant swelling or edema are noted in the patient's lower extremities. An open wound is noted on the patient's left pretibial region. There is no sign of infection or cellulitis. Dimensions are documented elsewhere. There is a moderate amount of bioburden and some old thrombus covering the wound base. Neuro oriented x3, CN's II-XII intact bilaterally and moves all extremities Sensorium / Orientation: awake, alert, oriented to person, oriented to place and oriented to time Psych Appearance: grossly normal and appropriate Attitude: calm Activity / Motor Behavior: appropriate eye contact Speech: normal speech Mood & Affect: euthymic mood Thought Process: normal thought process Thought Content: normal thought content Attention / Concentration: attention grossly intact Debridement Note Debridement Note Wound debrided: Left pretibial area Laterality: Left Type of Debridement: Excisional debridement Anesthesia Used: 5% Lidocaine Gel Depth: Down to and including healthy tissue and in the subcutaneous layer Percentage of wound debrided: 100 Instrument Used: 5mm curette Tissue Removed: Bioburden and old thrombus Severity: Fat Layer Exposed Amount of bleeding with debridement: Mild Bleeding Controlled with: Compression and gauze Patient tolerated procedure: Patient tolerated procedure well Post-Debridement Measurements and Additional Note: Post-Debridement Measurements/Treatment - Nurse 1 - General Ulcer Assessment Start: 09/26/21 10:03 Freq: Status: Active Protocol: SAM Activity Type Activity Date Activity User E-Sign Co-Sign Detail Recorded Client Recorded Date Recorded By Document 09/26/21 10:04 [id number] 09/26/21 10:19 KR Document 09/26/21 10:27 [facility] [id number] 09/26/21 10:28 [facility] 09/26/21 09/26/21 10:04 10:27 - Today's Visit Information Type of service Initial Visit Arrival Mode Ambulatory Patient Identification Verified (Name & Yes ) Height and Weight Height 5 ft 6 in Weight 208 lb Weight in Pounds 208.0 lbs Body Mass Index (BMI) 33.5 33.5 BMI Classification Obese Obese BSA - Inocente 2.03 Vital Signs Temperature (97.8 F-99.1 F) 96.3 F L Temperature Source Temporal Pulse Rate (60-100) 91 Pulse Location Monitor Blood Pressure (90/60-120/80) 146/90 H Blood Pressure Mean 108 Source Monitor Blood Pressure Location Left Arm History Since Last Visit- (Skip if this is Patient's initial visit) Have you changed medications since your No last visit? Any new allergies or adverse reactions No Had a fall/change in ADL's that may No increase risk of falls Signs or symptoms of abuse and/or No neglect since last visit Have you been in the hospital since your No last visit? Has dressing in place as prescribed No Has compression in place as prescribed N/A Has offloadiing in place as prescribed N/A Experienced any changes in pain level or No management Left Footwear Regular Shoe Right Footwear Regular Shoe Pain Scale: 0-10 Numeric Is Patient Pain Free? Yes Lower Extremity Assessment/ Foot Assessment/ Toe Nail Assessment Right -Posterior Tibial Palpable No -Posterior Tibial Doppler Multiphasic -Dorsalis Pedis Palpable Yes -Dorsalis Pedis Doppler Monophasic -Extremity Color Pale -Hair Growth on Legs Yes -Hair Growth on Toes No -Temperature of Extremity Cool -Other Deformity No -Prior Foot Ulcer No -Charcot Joint No -Prior Amputation No -Thick Yes -Discolored Yes -Deformed No -Improper Length & Hygeine No Left -Posterior Tibial Palpable No -Posterior Tibial Doppler Monophasic -Dorsalis Pedis Palpable Yes -Dorsalis Pedis Doppler Monophasic -Extremity Color Pale -Hair Growth on Legs Yes -Hair Growth on Toes No -Temperature of Extremity Cool -Thick Yes -Discolored Yes -Deformed No -Improper Length & Hygeine No Neuropathy Assessment Feet - Top Side and Bottom <Entered> (a) (a) 1 - + WC - Nurse 1 - General Ulcer Measurement Start: 09/26/21 10:03 Freq: Status: Active Protocol: Activity Type Activity Date Activity User E-Sign Co-Sign Detail Recorded Client Recorded Date Recorded By Document 09/26/21 10:04 NINI [id number] 09/26/21 10:19 NINI 09/26/21 10:04 Wound Center Nurse 1 #1 left villatoro -Current Size (cm) - Length 1.6 -Current Size (cm) - Width 2.2 -Current Size (cm) - Depth 0.2 -Total Square Cm 3.52 -Exudate Amt Small -Exudate Type Serosanguineous -Wound Margin Distinct, Outline Attached -Granulation Amt Small (1-33%) -Granulation Quality Red -Necrosis Amt Large (67-100%) -Necrotic Tissue Type Eschar -Texture (Dimple-wound Skin Appearance) Assessed, Scarring -Moisture (Dimple-wound Skin Appearance) Assessed, Maceration -Temperature (Dimple-wound Skin No Abnormality Appearance) (Pt Warm) -Tenderness on Palpation (Dimple-wound No Skin Appearance) -Ulcer Cleansing Rinsed/ Irrigated with Saline -Foul Odor after Cleansing No -Anesthetic Used 5% Lidocaine Gel Right Calf (cm) 41.8 Right Ankle (cm) 23.7 Left Calf (cm) 42.3 Left Ankle (cm) 24.7 WC - Nurse 2 - General Ulcer CM Notes Start: 09/26/21 10:03 Freq: Status: Active Protocol: Activity Type Activity Date Activity User E-Sign Co-Sign Detail Recorded Client Recorded Date Recorded By Document 09/26/21 11:44 [address] [id number] 09/26/21 11:47 PL 09/26/21 11:44 Wound Center Nurse 2 #1 left villatoro -Time 10:44 -Correct Patient Yes -Correct Side, Site, Position Yes -Correct Procedure Yes -Procedure Performed Yes -Type of Procedure Debridement -Clinical Debridement Subcutaneous -Tissue Removed Subcutaneous -Post Debridement (cm) - Length 1.6 -Post Debridement (cm) - Width 2.2 -Post Debridement (cm) - Depth 0.2 -Total Square (Post) (cm) 3.52 -Area of Debridement (cm) - Length 1.6 -Area of Debridement (cm) - Width 2.2 -Total Square (Area) (cm) 3.52 -Tunneling No -Undermining/Tunneling No -Circular Undermining No -Wound/Ulcer Outcome Not Healed -Ulcer Cleansing Rinsed/ Irrigated with Saline -Foul Odor after Cleansing No -Bioengineered Tissue No -Bleeding Controlled with Pressure -Treatment Response Procedure Tolerated Well -Debridement - Subq, 1st 20sq cm Yes WC - Nurse 3 - General Ulcer D/C NN Start: 09/26/21 10:03 Freq: Status: Active Protocol: Activity Type Activity Date Activity User E-Sign Co-Sign Detail Recorded Client Recorded Date Recorded By Document 09/26/21 10:57 NINI [id number] 09/26/21 10:58 NINI 09/26/21 10:57 Wound Care Nurse 3 -Primary Dressing Applied Aquacel Extra -Primary Dressing Covered/Secured with Dry Gauze,Dry Gauze & Roll Gauze,Secured with Tape -Aquacel Extra 1 Left -Tubular Bandage Double Layer -Size of Tubigrip Used Size E -Size E ($) 2 Pain Scale: 0-10 Numeric Is Patient Pain Free? Yes WC - Visit Discharge Discharge Condition Stable Ambulatory Status Ambulatory Transportation Private Auto Accompanied by self Assessment/Plan Assessment/Plan (1) Traumatic open wound of left lower leg: CODE(S): S81.802A - Unspecified open wound, left lower leg, initial encounter QUALIFIERS: Encounter type: initial encounter Qualified Code(s): S81.802A - Unspecified open wound, left lower leg, initial encounter (2) Pulmonary hypertension: CODE(S): I27.20 - Pulmonary hypertension, unspecified (3) History of mitral valve repair: CODE(S): Z98.890 - Other specified postprocedural states (4) Nonrheumatic mitral (valve) insufficiency: CODE(S): I34.0 - Nonrheumatic mitral (valve) insufficiency (5) Atherosclerotic heart disease of [place] coronary artery without angina pectoris: CODE(S): I25.10 - Atherosclerotic heart disease of [place] coronary artery without angina pectoris QUALIFIERS: [place] vs. transplanted heart: [place] heart Qualified Code(s): I25.10 - Atherosclerotic heart disease of [place] coronary artery without angina pectoris (6) Polyarthropathy: CODE(S): M13.0 - Polyarthritis, unspecified (7) Hypertension: CODE(S): I10 - Essential (primary) hypertension (8) Hyperlipidemia: CODE(S): E78.5 - Hyperlipidemia, unspecified (9) GERD (gastroesophageal reflux disease): CODE(S): K21.9 - Gastro-esophageal reflux disease without esophagitis (10) Hiatal hernia: CODE(S): K44.9 - Diaphragmatic hernia without obstruction or gangrene (11) Osteoarthritis: CODE(S): M19.90 - Unspecified osteoarthritis, unspecified site (12) Gout: CODE(S): M10.9 - Gout, unspecified (13) Congestive heart failure: CODE(S): I50.9 - Heart failure, unspecified (14) History of total bilateral knee replacement: CODE(S): Z96.653 - Presence of artificial knee joint, bilateral (15) History of bilateral cataract extraction: CODE(S): Z98.41 - Cataract extraction status, right eye; Z98.42 - Cataract extraction status, left eye (16) History of tonsillectomy: CODE(S): Z90.89 - Acquired absence of other organs PLAN: This is a 76-year-old female with multiple pre-existing medical problems. Weeks prior to her presentation, the patient sustained a traumatic wound to the left pretibial area. Since that time, she has been using antibiotic ointment topically as well as antibacterial spray. We are to implement the use of Aquacel topically. Patient has been educated as to the appropriate means of application. Double Tubigrip's will also be used to minimize swelling and edema. Patient has been advised to keep her legs elevated to heart level, or higher. Activity has been encouraged. It is anticipated that serial debridements will be performed. Patient is to return in 1 week for reassessment. Total time: 55 minutes
== END 2021-09-26 23:59 | disposition home or self-care (01) ==
LOC: WC 09:36
PROVIDERS: PCP Internal Medicine; Visit Provider Surgery
DX: S81.802A Unspecified open wound, left lower leg, initial encounter (principal); A48.0 Gas gangrene; I11.0 Hypertensive heart disease with heart failure; I50.9 Heart failure, unspecified; I27.20 Pulmonary hypertension, unspecified; I34.0 Nonrheumatic mitral (valve) insufficiency; E78.5 Hyperlipidemia, unspecified; K21.9 Gastro-esophageal reflux disease without esophagitis; G62.9 Polyneuropathy, unspecified; K44.9 Diaphragmatic hernia without obstruction or gangrene; M19.90 Unspecified osteoarthritis, unspecified site; M10.9 Gout, unspecified; I25.10 Atherosclerotic heart disease of native coronary artery without angina pectoris; Z79.1 Long term (current) use of non-steroidal anti-inflammatories (NSAID); Z87.891 Personal history of nicotine dependence; I87.2 Venous insufficiency (chronic) (peripheral); Z90.89 Acquired absence of other organs; Z96.653 Presence of artificial knee joint, bilateral
CPT/HCPCS: 11042; 99213; G0463

== ENCOUNTER 2021-10-17 09:30 | Outpatient (RCR) | payer MEDICARE, SELFPAY ==
[2021-09-27 00:41] VITALS: BP 146/90; PULSE 91; TEMP 35.7; BMI 33.5
[2021-10-03 09:17] VITALS: BP 140/105; PULSE 89; RESP 20; TEMP 36.6; BMI 33.5
--- NOTE | 2021-10-03 15:00 | HP.PCM_ITS ---
History of Present Illness Date of Service: 10/03/21 Chief Complaint: Traumatic wound, left pretibial area History of Wound: This is a 76-year-old female who presents with a traumatic wound on the left pretibial area, which occurred as a result of impacting this portion of her left leg against the step bar of a vehicle. The event occurred approximately 6 weeks ago. Patient has been treated previously with a course of oral doxycycline. X-rays of the area revealed no evidence of fracture or oste omyelitis. The patient has been using antibiotic ointment topically, as well as antibacterial spray. Patient denies a history of thrombophlebitis. She does experience mild leg swelling, often at days end. She ambulates liberally without difficulty or leg pain. She sleeps on a flat mattress at night. [facility] Medical History Atherosclerotic heart disease of [place] coronary artery without angina pectoris Bilateral pleural effusion Congestive heart failure GERD (gastroesophageal reflux disease) Gout Hiatal hernia History of pleural effusion Hyperlipidemia Hypertension Nonrheumatic mitral (valve) insufficiency Osteoarthritis Polyarthropathy Pulmonary hypertension Traumatic open wound of left lower leg Home Medications omeprazole 40 mg PO DAILY 03/28/18 [History Last Taken 01/09/20 06:00] potassium chloride 20 mEq tablet,extended release(part/cryst) 20 meq PO DAILY #90 tab 11/25/18 [Rx Last Taken Unknown] loratadine 10 mg tablet 10 mg PO DAILY PRN 08/21/19 [History Last Taken Unknown] buspirone 5 mg PO BID 01/09/20 [History Last Taken 01/09/20 09:00] allopurinol 100 mg tablet 100 mg PO DAILY 04/27/20 [History Last Taken Unknown] aspirin 81 mg tablet,delayed release 81 mg PO DAILY 04/27/20 [History Last Taken Unknown] acetaminophen 500 mg tablet 500 mg PO Q6H PRN 02/17/21 [History Last Taken Unknown] calcium carbonate 500 mg (1,250 mg)-vitamin D3 125 unit tablet 1 tablet PO DAILY 02/17/21 [History Last Taken Unknown] meloxicam 15 mg tablet 15 mg PO DAILY 02/17/21 [History Last Taken Unknown] multivitamin 1 tablet PO DAILY 02/17/21 [History Last Taken Unknown] metoprolol tartrate 25 mg tablet 25 mg PO BID #180 tab 06/27/21 [Rx Last Taken Unknown] furosemide 40 mg tablet 40 mg PO DAILY #90 tab 08/14/21 [Rx Last Taken Unknown] Allergy/AdvReac Type Severity Reaction Status Date / Time codeine Allergy Unknown Rash Verified 08/14/21 09:51 tramadol Allergy Itching Verified 08/14/21 09:51 atorvastatin [From Lipitor] AdvReac hives and Verified 08/14/21 09:51 itching seasonal Allergy Other Uncoded 09/26/21 10:27 Family History Mother Heart disease Grandmother CVA (cerebral vascular accident) Surgical History History of bilateral cataract extraction History of bilateral cataract extraction History of left heart catheterization (LHC) History of left knee replacement History of mitral valve repair (07/08/17) History of right knee joint replacement History of tonsillectomy History of tonsillectomy History of total bilateral knee replacement History of tubal ligation Social History Smoking Status: Former smoker alcohol intake: current alcohol intake frequency: a few times a week Alcohol type: wine substance use type: does not use diet: low salt caffeine: Yes Type: coffee Number of servings: 3 what type of physical activity do you participate in: other details: PT frequency: 3-4 times per week duration: 30-45 minutes/day seatbelt use: always do you feel safe at home: Yes Vital Signs Vital Signs Vital Signs: 10/03/21 09:17 Temperature 97.8 F Temperature Source Temporal Pulse Rate 89 Respiratory Rate 20 H Blood Pressure 140/105 H Blood Pressure Mean 116 Blood Pressure Source Monitor Weight Weight: 208 lb Body Mass Index (BMI) 33.5 Physical Exam Const alert, oriented x3, no apparent distress and well nourished General Appearance: cooperative and well developed Orientation / Consciousness: awake, oriented to person, oriented to place and oriented to time HEENT normocephalic and head/scalp atraumatic Head and Scalp: normal to inspection, normocephalic and atraumatic External Ear: external ears normal Eyes PERRL and EOMs intact bilaterally General Eye: normal appearance of both eyes Resp normal respiratory effort, normal air movement, no retractions and no use of accessory muscles Effort and Inspection: able to speak in complete sentences Extremity no calf tenderness General Extremity: Negative for clubbing or cyanosis Skin Wound Narrative: The wound on the left pretibial area persists. It is smaller in size. Dimensions are documented elsewhere. There is no sign of infection or cellulitis. There is a moderate amount of bioburden. Neuro oriented x3, CN's II-XII intact bilaterally and moves all extremities Sensorium / Orientation: awake, alert, oriented to person, oriented to place and oriented to time Psych Appearance: grossly normal and appropriate Attitude: calm Activity / Motor Behavior: appropriate eye contact Speech: normal speech Mood & Affect: euthymic mood Thought Process: normal thought process Thought Content: normal thought content Attention / Concentration: attention grossly intact Debridement Note Debridement Note Wound debrided: Left pretibial Laterality: Left Type of Debridement: Excisional debridement Anesthesia Used: 5% Lidocaine Gel Depth: Down to and including healthy tissue and in the subcutaneous layer Percentage of wound debrided: 100 Instrument Used: 5mm curette Tissue Removed: Bioburden Severity: Fat Layer Exposed Amount of bleeding with debridement: Mild Bleeding Controlled with: Compression and gauze Patient tolerated procedure: Patient tolerated procedure well Post-Debridement Measurements and Additional Note: Post-Debridement Measurements/Treatment - Nurse 1 - General Ulcer Assessment Start: 10/03/21 09:17 Freq: Status: Active Protocol: WC.LOWMELISSAT Activity Type Activity Date Activity User E-Sign Co-Sign Detail Recorded Client Recorded Date Recorded By Document 10/03/21 09:17 [id number] 10/03/21 09:22 DL 10/03/21 09:17 - Today's Visit Information Type of service Follow-up Visit (Physician/[facility] ) Arrival Mode Ambulatory Transfer Assistance None Patient Identification Verified (Name & Yes ) Patient Requires Transmission-Based No Precautions Height and Weight Body Mass Index (BMI) 33.5 BMI Classification Obese Vital Signs Temperature (97.8 F-99.1 F) 97.8 F Temperature Source Temporal Pulse Rate (60-100) 89 Pulse Location Monitor Respiratory Rate (12-18) 20 H Respiratory rate source Observation Blood Pressure (90/60-120/80) 140/105 H Blood Pressure Mean 116 Source Monitor History Since Last Visit- (Skip if this is Patient's initial visit) Have you changed medications since your No last visit? Any new allergies or adverse reactions No Had a fall/change in ADL's that may No increase risk of falls Signs or symptoms of abuse and/or No neglect since last visit Have you been in the hospital since your No last visit? Has dressing in place as prescribed Yes Has compression in place as prescribed Yes Has offloadiing in place as prescribed N/A Experienced any changes in pain level or No management Left Footwear Regular Shoe Right Footwear Regular Shoe Pain Scale: 0-10 Numeric Is Patient Pain Free? Yes WC - Nurse 1 - General Ulcer Measurement Start: 10/03/21 09:17 Freq: Status: Active Protocol: Activity Type Activity Date Activity User E-Sign Co-Sign Detail Recorded Client Recorded Date Recorded By Document 10/03/21 09:17 DL [id number] 10/03/21 09:22 DL 10/03/21 09:17 Wound Center Nurse 1 #1 left villatoro -Current Size (cm) - Length 3 -Current Size (cm) - Width 2.1 -Current Size (cm) - Depth 0.2 -Total Square Cm 6.3 -Photo Taken No -Exudate Amt Medium -Exudate Type Serosanguineous -Wound Margin Distinct, Outline Attached -Granulation Amt Medium (34-66%) -Granulation Quality Red -Necrosis Amt Medium (34-66%) -Necrotic Tissue Type Adherent Slough -Structure Exposed N/A -Texture (Dimple-wound Skin Appearance) Localized Edema ,Scarring -Moisture (Dimple-wound Skin Appearance) No Abnormality -Color (Dimple-wound Skin Appearance) No Abnormality -Temperature (Dimple-wound Skin No Abnormality Appearance) (Pt Warm) -Tenderness on Palpation (Dimple-wound No Skin Appearance) -Ulcer Cleansing Rinsed/ Irrigated with Saline -Foul Odor after Cleansing No -Anesthetic Used 4% Lidocaine Solution Left Calf (cm) 42.2 Left Ankle (cm) 24.6 WC - Nurse 2 - General Ulcer CM Notes Start: 10/03/21 09:17 Freq: Status: Active Protocol: Activity Type Activity Date Activity User E-Sign Co-Sign Detail Recorded Client Recorded Date Recorded By Document 10/03/21 09:55 PL [id number] 10/03/21 09:56 PL 10/03/21 09:55 Wound Center Nurse 2 #1 left villatoro -Time 09:35 -Correct Patient Yes -Correct Side, Site, Position Yes -Correct Procedure Yes -Procedure Performed Yes -Type of Procedure Debridement -Clinical Debridement Subcutaneous -Tissue Removed Subcutaneous -Post Debridement (cm) - Length 3.0 -Post Debridement (cm) - Width 2.1 -Post Debridement (cm) - Depth 0.2 -Total Square (Post) (cm) 6.30 -Area of Debridement (cm) - Length 3.0 -Area of Debridement (cm) - Width 2.1 -Total Square (Area) (cm) 6.30 -Tunneling No -Undermining/Tunneling No -Circular Undermining No -Wound/Ulcer Outcome Not Healed -Ulcer Cleansing Rinsed/ Irrigated with Saline -Foul Odor after Cleansing No -Bioengineered Tissue No -Bleeding Controlled with Pressure -Treatment Response Procedure Tolerated Well -Debridement - Subq, 1st 20sq cm Yes WC - Nurse 3 - General Ulcer D/C NN Start: 10/03/21 09:17 Freq: Status: Active Protocol: Activity Type Activity Date Activity User E-Sign Co-Sign Detail Recorded Client Recorded Date Recorded By Document 10/03/21 09:42 NINI [id number] 10/03/21 09:42 NINI 10/03/21 09:42 Wound Care Nurse 3 -Ulcer Cleansing Rinsed/ Irrigated with Saline -Primary Dressing Applied Aquacel Extra -Primary Dressing Covered/Secured with Dry Gauze,Dry Gauze & Roll Gauze,Secured with Tape -Aquacel Extra 1 Pain Scale: 0-10 Numeric Is Patient Pain Free? Yes WC - Visit Discharge Discharge Condition Stable Ambulatory Status Ambulatory Transportation Private Auto Accompanied by self Assessment/Plan Assessment/Plan (1) Traumatic open wound of left lower leg: CODE(S): S81.802A - Unspecified open wound, left lower leg, initial encounter QUALIFIERS: Encounter type: initial encounter Qualified Code(s): S81.802A - Unspecified open wound, left lower leg, initial encounter (2) History of tonsillectomy: CODE(S): Z90.89 - Acquired absence of other organs (3) History of bilateral cataract extraction: CODE(S): Z98.41 - Cataract extraction status, right eye; Z98.42 - Cataract extraction status, left eye (4) History of total bilateral knee replacement: CODE(S): Z96.653 - Presence of artificial knee joint, bilateral (5) Congestive heart failure: CODE(S): I50.9 - Heart failure, unspecified (6) Gout: CODE(S): M10.9 - Gout, unspecified (7) Osteoarthritis: CODE(S): M19.90 - Unspecified osteoarthritis, unspecified site (8) Hiatal hernia: CODE(S): K44.9 - Diaphragmatic hernia without obstruction or gangrene (9) GERD (gastroesophageal reflux disease): CODE(S): K21.9 - Gastro-esophageal reflux disease without esophagitis (10) Hyperlipidemia: CODE(S): E78.5 - Hyperlipidemia, unspecified (11) Hypertension: CODE(S): I10 - Essential (primary) hypertension (12) Polyarthropathy: CODE(S): M13.0 - Polyarthritis, unspecified (13) Pulmonary hypertension: CODE(S): I27.20 - Pulmonary hypertension, unspecified (14) History of mitral valve repair: CODE(S): Z98.890 - Other specified postprocedural states (15) Nonrheumatic mitral (valve) insufficiency: CODE(S): I34.0 - Nonrheumatic mitral (valve) insufficiency (16) Atherosclerotic heart disease of [place] coronary artery without angina pectoris: CODE(S): I25.10 - Atherosclerotic heart disease of [place] coronary artery without angina pectoris QUALIFIERS: [place] vs. transplanted heart: [place] heart Qualified Code(s): I25.10 - Atherosclerotic heart disease of [place] coronary artery without angina pectoris (17) Heart murmur: CODE(S): R01.1 - Cardiac murmur, unspecified PLAN: This is a 76-year-old female with multiple pre-existing medical problems. Weeks prior to her presentation, the patient sustained a traumatic wound to the left pretibial area. Since that time, she had been using antibiotic ointment topically as well as antibacterial spray. We are to continue the use of Aquacel topically. The patient has been educated as to the appropriate means of application. Double Tubigrip's will also be used to minimize swelling and edema. Patient has been advised to keep her legs elevated to heart level, or higher. Activity has been encouraged. It is anticipated that serial debridements will be performed. Patient is to return in 1 week for reassessment. Total time: 29 minutes
[2021-10-10 09:23] VITALS: BP 129/56; PULSE 75; RESP 16; TEMP 35.7; BMI 33.5
--- NOTE | 2021-10-10 09:48 | PCM.WC.HP ---
History of Present Illness Date of Service: 10/10/21 Chief Complaint: Traumatic wound, left pretibial area History of Wound: This is a 76-year-old female who presents with a traumatic wound on the left pretibial area, which occurred as a result of impacting this portion of her left leg against the step bar of a vehicle. The event occurred approximately 6 weeks ago. Patient has been treated previously with a course of oral doxycycline. X-rays of the area revealed no evidence of fracture or osteomyelitis. The patient has been using antibiotic ointment topically, as well as antibacterial spray. Patient denies a history of thrombophlebitis. She does experience mild leg swelling, often at days end. She ambulates liberally without difficulty or leg pain. She sleeps on a flat mattress at night. [facility] Medical History (Updated 10/10/21 @ 09:[address] Roel Ferrari MD) Atherosclerotic heart disease of [place] coronary artery without angina pectoris Bilateral pleural effusion Chronic venous insufficiency Congestive heart failure GERD (gastroesophageal reflux disease) Gout Hiatal hernia History of pleural effusion Hyperlipidemia Hypertension Lower extremity edema Nonrheumatic mitral (valve) insufficiency Osteoarthritis Peripheral vascular disease Polyarthropathy Pulmonary hypertension Swelling of lower extremity Traumatic open wound of left lower leg Varicose veins with inflammation Home Medications omeprazole 40 mg PO DAILY 03/28/18 [History Last Taken 01/09/20 06:00] potassium chloride 20 mEq tablet,extended release(part/cryst) 20 meq PO DAILY #90 tab 11/25/18 [Rx Last Taken Unknown] loratadine 10 mg tablet 10 mg PO DAILY PRN 08/21/19 [History Last Taken Unknown] buspirone 5 mg PO BID 01/09/20 [History Last Taken 01/09/20 09:00] allopurinol 100 mg tablet 100 mg PO DAILY 04/27/20 [History Last Taken Unknown] aspirin 81 mg tablet,delayed release 81 mg PO DAILY 04/27/20 [History Last Taken Unknown] acetaminophen 500 mg tablet 500 mg PO Q6H PRN 02/17/21 [History Last Taken Unknown] calcium carbonate 500 mg (1,250 mg)-vitamin D3 125 unit tablet 1 tablet PO DAILY 02/17/21 [History Last Taken Unknown] meloxicam 15 mg tablet 15 mg PO DAILY 02/17/21 [History Last Taken Unknown] multivitamin 1 tablet PO DAILY 02/17/21 [History Last Taken Unknown] metoprolol tartrate 25 mg tablet 25 mg PO BID #180 tab 06/27/21 [Rx Last Taken Unknown] furosemide 40 mg tablet 40 mg PO DAILY #90 tab 08/14/21 [Rx Last Taken Unknown] Allergy/AdvReac Type Severity Reaction Status Date / Time codeine Allergy Unknown Rash Verified 08/14/21 09:51 tramadol Allergy Itching Verified 08/14/21 09:51 atorvastatin [From Lipitor] AdvReac hives and Verified 08/14/21 09:51 itching seasonal Allergy Other Uncoded 09/26/21 10:27 Family History Mother Heart disease Grandmother CVA (cerebral vascular accident) Surgical History History of bilateral cataract extraction History of bilateral cataract extraction History of left heart catheterization (LHC) History of left knee replacement History of mitral valve repair (07/08/17) History of right knee joint replacement History of tonsillectomy History of tonsillectomy History of total bilateral knee replacement History of tubal ligation Social History Smoking Status: Former smoker alcohol intake: current alcohol intake frequency: a few times a week Alcohol type: wine substance use type: does not use diet: low salt caffeine: Yes Type: coffee Number of servings: 3 what type of physical activity do you participate in: other details: PT frequency: 3-4 times per week duration: 30-45 minutes/day seatbelt use: always do you feel safe at home: Yes Vital Signs Vital Signs Vital Signs: 10/10/21 09:23 Temperature 96.3 F L Temperature Source Temporal Pulse Rate 75 Respiratory Rate 16 Blood Pressure 129/56 H Blood Pressure Mean 80 Blood Pressure Source Monitor Blood Pressure Position Sitting Blood Pressure Location Right Forearm Oxygen Delivery Method Room Air Weight Weight: 208 lb Body Mass Index (BMI) 33.5 Physical Exam Const alert, oriented x3, no apparent distress and well nourished General Appearance: cooperative and well developed Orientation / Consciousness: awake, oriented to person, oriented to place and oriented to time HEENT normocephalic and head/scalp atraumatic Head and Scalp: normal to inspection, normocephalic and atraumatic External Ear: external ears normal Eyes PERRL and EOMs intact bilaterally General Eye: normal appearance of both eyes Resp normal respiratory effort, normal air movement, no retractions and no use of accessory muscles Effort and Inspection: able to speak in complete sentences Extremity no calf tenderness Extremity Narrative: Mild bilateral lower extremity swelling and edema is noted General Extremity: Negative for clubbing or cyanosis Skin Wound Narrative: The wound on the left pretibial area persists. It is little change in size or appearance. Dimensions are documented elsewhere. There is a moderate amount of bioburden. There is no sign of infection or cellulitis. Neuro oriented x3, CN's II-XII intact bilaterally and moves all extremities Sensorium / Orientation: awake, alert, oriented to person, oriented to place and oriented to time Psych Appearance: grossly normal and appropriate Attitude: calm Activity / Motor Behavior: appropriate eye contact Speech: normal speech Mood & Affect: euthymic mood Thought Process: normal thought process Thought Content: normal thought content Attention / Concentration: attention grossly intact Debridement Note Debridement Note Wound debrided: Left pretibial area Laterality: Left Type of Debridement: Excisional debridement Anesthesia Used: 5% Lidocaine Gel Depth: Down to and including healthy tissue and in the subcutaneous layer Percentage of wound debrided: 100 Instrument Used: 5mm curette Tissue Removed: Bioburden Severity: Fat Layer Exposed Amount of bleeding with debridement: Mild Bleeding Controlled with: Compression and gauze Patient tolerated procedure: Patient tolerated procedure well Post-Debridement Measurements and Additional Note: Post-Debridement Measurements/Treatment - Nurse 1 - General Ulcer Assessment Start: 10/03/21 09:17 Freq: Status: Active Protocol: SAM Activity Type Activity Date Activity User E-Sign Co-Sign Detail Recorded Client Recorded Date Recorded By Document 10/03/21 09:17 [id number] 10/03/21 09:22 DL Document 10/10/21 09:23 [facility] [id number] 10/10/21 09:28 [facility] 10/03/21 10/10/21 09:17 09:23 - Today's Visit Information Type of service Follow-up Visit Follow-up Visit (Physician/[employer] (Physician/[employer] ) ) Arrival Mode Ambulatory Ambulatory Transfer Assistance None None Patient Identification Verified (Name & Yes Yes ) Patient Requires Transmission-Based No No Precautions Height and Weight Body Mass Index (BMI) 33.5 33.5 BMI Classification Obese Obese Vital Signs Temperature (97.8 F-99.1 F) 97.8 F 96.3 F L Temperature Source Temporal Temporal Pulse Rate (60-100) 89 75 Pulse Location Monitor Monitor Respiratory Rate (12-18) 20 H 16 Respiratory rate source Observation Observation Oxygen Delivery Method Room Air Blood Pressure (90/60-120/80) 140/105 H 129/56 H Blood Pressure Mean 116 80 Source Monitor Monitor Position Sitting Blood Pressure Location Right Forearm History Since Last Visit- (Skip if this is Patient's initial visit) Have you changed medications since your No No last visit? Any new allergies or adverse reactions No No Had a fall/change in ADL's that may No No increase risk of falls Signs or symptoms of abuse and/or No No neglect since last visit Have you been in the hospital since your No No last visit? Has dressing in place as prescribed Yes Yes Has compression in place as prescribed Yes Yes Has offloadiing in place as prescribed N/A N/A Experienced any changes in pain level or No No management Left Footwear Regular Shoe Regular Shoe Right Footwear Regular Shoe Regular Shoe Pain Scale: 0-10 Numeric Is Patient Pain Free? Yes WC - Nurse 1 - General Ulcer Measurement Start: 10/03/21 09:17 Freq: Status: Active Protocol: Activity Type Activity Date Activity User E-Sign Co-Sign Detail Recorded Client Recorded Date Recorded By Document 10/03/21 09:17 [id number] 10/03/21 09:22 DL Document 10/10/21 09:23 [facility] [id number] 10/10/21 09:28 BM 10/03/21 10/10/21 09:17 09:23 Wound Center Nurse 1 #1 left villatoro -Combined with other wound No -Current Size (cm) - Length 3 2.4 -Current Size (cm) - Width 2.1 1.9 -Current Size (cm) - Depth 0.2 0.1 -Total Square Cm 6.3 4.56 -Photo Taken No No -Tunneling No -Undermining/Tunneling No -Circular Undermining No -Exudate Amt Medium Medium -Exudate Type Serosanguineous Sanguineous -Wound Margin Distinct, Distinct, Outline Outline Attached Attached -Granulation Amt Medium (34-66%) Large (67-100%) -Granulation Quality Red Red -Slough/Fibrin Yes -Necrosis Amt Medium (34-66%) Small (1-33%) -Necrotic Tissue Type Adherent Slough Adherent Slough -Structure Exposed N/A -Texture (Dimple-wound Skin Appearance) Localized Edema Assessed, ,Scarring Scarring -Moisture (Dimple-wound Skin Appearance) No Abnormality Assessed,Dry/ Scaly -Color (Dimple-wound Skin Appearance) No Abnormality Assessed -Temperature (Dimple-wound Skin No Abnormality No Abnormality Appearance) (Pt Warm) (Pt Warm) -Tenderness on Palpation (Dimple-wound No No Skin Appearance) -Ulcer Cleansing Rinsed/ Rinsed/ Irrigated with Irrigated with Saline Saline -Foul Odor after Cleansing No No -Anesthetic Used 4% Lidocaine 5% Lidocaine Solution Gel Lower Limb Edema Present Yes Left Calf (cm) 42.2 42.6 Left Ankle (cm) 24.6 23.5 WC - Nurse 2 - General Ulcer CM Notes Start: 10/03/21 09:17 Freq: Status: Active Protocol: Activity Type Activity Date Activity User E-Sign Co-Sign Detail Recorded Client Recorded Date Recorded By Document 10/03/21 09:55 PL [id number] 10/03/21 09:56 PL Document 10/10/21 09:46 PL [id number] 10/10/21 09:48 PL 10/03/21 10/10/21 09:55 09:46 Wound Center Nurse 2 #1 left villatoro -Time 09:35 09:40 -Correct Patient Yes Yes -Correct Side, Site, Position Yes Yes -Correct Procedure Yes Yes -Procedure Performed Yes Yes -Type of Procedure Debridement Debridement -Clinical Debridement Subcutaneous Subcutaneous -Tissue Removed Subcutaneous Subcutaneous -Post Debridement (cm) - Length 3.0 2.4 -Post Debridement (cm) - Width 2.1 1.9 -Post Debridement (cm) - Depth 0.2 0.1 -Total Square (Post) (cm) 6.30 4.56 -Area of Debridement (cm) - Length 3.0 2.4 -Area of Debridement (cm) - Width 2.1 1.9 -Total Square (Area) (cm) 6.30 4.56 -Tunneling No No -Undermining/Tunneling No No -Circular Undermining No No -Wound/Ulcer Outcome Not Healed Not Healed -Ulcer Cleansing Rinsed/ Rinsed/ Irrigated with Irrigated with Saline Saline -Foul Odor after Cleansing No No -Bioengineered Tissue No No -Bleeding Controlled with Pressure Pressure -Treatment Response Procedure Procedure Tolerated Well Tolerated Well -Debridement - Subq, 1st 20sq cm Yes Yes - Nurse 3 - General Ulcer D/C NN Start: 10/03/21 09:17 Freq: Status: Active Protocol: Activity Type Activity Date Activity User E-Sign Co-Sign Detail Recorded Client Recorded Date Recorded By Document 10/03/21 09:42 [id number] 10/03/21 09:42 NINI 10/03/21 09:42 Wound Care Nurse 3 -Ulcer Cleansing Rinsed/ Irrigated with Saline -Primary Dressing Applied Aquacel Extra -Primary Dressing Covered/Secured with Dry Gauze,Dry Gauze & Roll Gauze,Secured with Tape -Aquacel Extra 1 Pain Scale: 0-10 Numeric Is Patient Pain Free? Yes - Visit Discharge Discharge Condition Stable Ambulatory Status Ambulatory Transportation Private Auto Accompanied by self Assessment/Plan Assessment/Plan (1) Traumatic open wound of left lower leg: CODE(S): S81.802A - Unspecified open wound, left lower leg, initial encounter QUALIFIERS: Encounter type: initial encounter Qualified Code(s): S81.802A - Unspecified open wound, left lower leg, initial encounter (2) Swelling of lower extremity: CODE(S): M79.89 - Other specified soft tissue disorders (3) Lower extremity edema: CODE(S): R60.0 - Localized edema (4) Chronic venous insufficiency: CODE(S): I87.2 - Venous insufficiency (chronic) (peripheral) (5) Varicose veins with inflammation: CODE(S): I83.10 - Varicose veins of unspecified lower extremity with inflammation (6) Peripheral vascular disease: CODE(S): I73.9 - Peripheral vascular disease, unspecified (7) History of tonsillectomy: CODE(S): Z90.89 - Acquired absence of other organs (8) History of bilateral cataract extraction: CODE(S): Z98.41 - Cataract extraction status, right eye; Z98.42 - Cataract extraction status, left eye (9) History of total bilateral knee replacement: CODE(S): Z96.653 - Presence of artificial knee joint, bilateral (10) Congestive heart failure: CODE(S): I50.9 - Heart failure, unspecified (11) Gout: CODE(S): M10.9 - Gout, unspecified (12) Osteoarthritis: CODE(S): M19.90 - Unspecified osteoarthritis, unspecified site (13) Hiatal hernia: CODE(S): K44.9 - Diaphragmatic hernia without obstruction or gangrene (14) GERD (gastroesophageal reflux disease): CODE(S): K21.9 - Gastro-esophageal reflux disease without esophagitis (15) Hyperlipidemia: CODE(S): E78.5 - Hyperlipidemia, unspecified (16) Hypertension: CODE(S): I10 - Essential (primary) hypertension (17) Polyarthropathy: CODE(S): M13.0 - Polyarthritis, unspecified (18) Pulmonary hypertension: CODE(S): I27.20 - Pulmonary hypertension, unspecified (19) History of mitral valve repair: CODE(S): Z98.890 - Other specified postprocedural states (20) Nonrheumatic mitral (valve) insufficiency: CODE(S): I34.0 - Nonrheumatic mitral (valve) insufficiency (21) Atherosclerotic heart disease of [place] coronary artery without angina pectoris: CODE(S): I25.10 - Atherosclerotic heart disease of [place] coronary artery without angina pectoris QUALIFIERS: [place] vs. transplanted heart: [place] heart Qualified Code(s): I25.10 - Atherosclerotic heart disease of [place] coronary artery without angina pectoris (22) Heart murmur: CODE(S): R01.1 - Cardiac murmur, unspecified (23) Palpitations: CODE(S): R00.2 - Palpitations (24) Acute diastolic CHF (congestive heart failure): CODE(S): I50.31 - Acute diastolic (congestive) heart failure PLAN: This is a 76-year-old female with multiple pre-existing medical problems. Weeks prior to her presentation, the patient sustained a traumatic wound to the left pretibial area. Since that time, she had been using antibiotic ointment topically as well as antibacterial spray. We are to continue the use of Aquacel topically. The patient has been educated as to the appropriate means of application. Double Tubigrip's will also be used to minimize swelling and edema. Patient has been advised to keep her legs elevated to heart level, or higher. Activity has been encouraged. It is anticipated that serial debridements will be performed. We are to obtain routine laboratory studies to assess the patient's metabolic status. These will include a CBC, a comprehensive metabolic profile, and a serum prealbumin. A noninvasive lower extremity arterial study and a venous duplex examination will also be obtained to assess the patient's arterial and venous status in the lower extremities. The patient is to return in 1 week for reassessment. Total time: 28 minutes
[2021-10-10 10:37] LABS: Erythrocyte Sedimentation Rate 24 mm/hr (0-30)
[2021-10-10 10:38] LABS: Absolute Lymphocyte Count 1.33 X10^3/uL (0.83-4.51); Absolute Neutrophil Count 2.7 X10^3/uL (2.0-7.7); Basophil# 0.03 X10^3/uL; Basophil% 0.6 % (0-1); Eosinophil# 0.19 X10^3/uL; Hematocrit 39.5 % (37-47); Hemoglobin 12.7 g/dL (12.0-15.0); Lymphocyte # 1.33 X10^3/ul (0.83-4.51); Lymphocyte % 27.8 % (19-41); Mean Corp Hgb Conc 32.2 g/dL (32-36); Mean Corpuscular Hgb 30.5 pg (27.0-32.0); Mean Platelet Vol. 10.5 fl (6.2-12.0); Monocyte# 0.57 X10^3/uL; Monocyte% 11.9 % (0-10); NRBC Flagged by Analyzer 0 % (0-5); Neutrophil # 2.66 X10^3/uL (2.7-7.7); Neutrophil % 55.5 % (47-70); Platelet Count 176 K/mm3 (150-450); RBC Distribution Width CV 13.8 % (11.6-14.6); RBC Distribution Width SD 48.3 fl (35.1-43.9); Red Blood Count 4.16 M/mm3 (4.2-5.4); White Blood Count 4.8 K/mm3 (4.4-11.0)
[2021-10-10 11:04] LABS: ALB/GLOB Ratio 0.9 RATIO (0.9-2.4); AST(SGOT) 24 U/L (15-37); Alanine Aminotransfer ALT/SGPT 26 U/L (13-56); Albumin, Serum 3.3 g/dL (3.2-5.0); Alkaline Phosphatase 60 U/L (45-117); Anion Gap 5 (5-15); BUN 26 mg/dL (7-18); BUN/Creat Ratio 21.7 RATIO (10-20); Calcium,Total 9.5 mg/dL (8.5-10.1); Chloride 110 mmol/L (98-107); EST Glomerular Filtration Rate 46 mL/min (>60); Est Glom Filt Rate - Afr Amer 56 mL/min (>60); Estimated Creatinine Clearance 37.34 ml/min; Globulin 3.7 g/dL (2.2-4.2); Glucose 114 mg/dL (74-106); Potassium 4.2 mmol/L (3.5-5.1); Sodium Level 141 mmol/L (136-145)
[2021-10-10 11:23] LABS: Prealbumin 18.4 mg/dL (20.0-40.0)
[2021-10-17 09:25] VITALS: BP 138/59; PULSE 68; RESP 18; TEMP 35.9; BMI 33.5
--- NOTE | 2021-10-17 10:19 | HP.PCM_ITS ---
History of Present Illness Date of Service: 10/17/21 Chief Complaint: Traumatic wound, left pretibial area History of Wound: This is a 76-year-old female who presents with a traumatic wound on the left pretibial area, which occurred as a result of impacting this portion of her left leg against the step bar of a vehicle. The event occurred approximately 6 weeks ago. Patient has been treated previously with a course of oral doxycycline. X-rays of the area revealed no evidence of fracture or oste omyelitis. The patient has been using antibiotic ointment topically, as well as antibacterial spray. Patient denies a history of thrombophlebitis. She does experience mild leg swelling, often at days end. She ambulates liberally without difficulty or leg pain. She sleeps on a flat mattress at night. [facility] Medical History Atherosclerotic heart disease of [place] coronary artery without angina pectoris Bilateral pleural effusion Chronic venous insufficiency Congestive heart failure GERD (gastroesophageal reflux disease) Gout Hiatal hernia History of pleural effusion Hyperlipidemia Hypertension Lower extremity edema Nonrheumatic mitral (valve) insufficiency Osteoarthritis Peripheral vascular disease Polyarthropathy Pulmonary hypertension Swelling of lower extremity Traumatic open wound of left lower leg Varicose veins with inflammation Home Medications omeprazole 40 mg PO DAILY 03/28/18 [History Last Taken 01/09/20 06:00] potassium chloride 20 mEq tablet,extended release(part/cryst) 20 meq PO DAILY #90 tab 11/25/18 [Rx Last Taken Unknown] loratadine 10 mg tablet 10 mg PO DAILY PRN 08/21/19 [History Last Taken Unknown] buspirone 5 mg PO BID 01/09/20 [History Last Taken 01/09/20 09:00] allopurinol 100 mg tablet 100 mg PO DAILY 04/27/20 [History Last Taken Unknown] aspirin 81 mg tablet,delayed release 81 mg PO DAILY 04/27/20 [History Last Taken Unknown] acetaminophen 500 mg tablet 500 mg PO Q6H PRN 02/17/21 [History Last Taken U nknown] calcium carbonate 500 mg-vitamin D3 3.125 mcg (125 unit) tablet 1 tablet PO DAILY 02/17/21 [History Last Taken Unknown] meloxicam 15 mg tablet 15 mg PO DAILY 02/17/21 [History Last Taken Unknown] multivitamin 1 tablet PO DAILY 02/17/21 [History Last Taken Unknown] metoprolol tartrate 25 mg tablet 25 mg PO BID #180 tab 06/27/21 [Rx Last Taken Unknown] furosemide 40 mg tablet 40 mg PO DAILY #90 tab 08/14/21 [Rx Last Taken Unknown] Allergy/AdvReac Type Severity Reaction Status Date / Time codeine Allergy Unknown Rash Verified 08/14/21 09:51 tramadol Allergy Itching Verified 08/14/21 09:51 atorvastatin [From Lipitor] AdvReac hives and Verified 08/14/21 09:51 itching seasonal Allergy Other Uncoded 09/26/21 10:27 Family History Mother Heart disease Grandmother CVA (cerebral vascular accident) Surgical History History of bilateral cataract extraction History of bilateral cataract extraction History of left heart catheterization (LHC) History of left knee replacement History of mitral valve repair (07/08/17) History of right knee joint replacement History of tonsillectomy History of tonsillectomy History of total bilateral knee replacement History of tubal ligation Social History Smoking Status: Former smoker alcohol intake: current alcohol intake frequency: a few times a week Alcohol type: wine substance use type: does not use diet: low salt caffeine: Yes Type: coffee Number of servings: 3 what type of physical activity do you participate in: other details: PT frequency: 3-4 times per week duration: 30-45 minutes/day seatbelt use: always do you feel safe at home: Yes Vital Signs Vital Signs Vital Signs: 10/17/21 09:25 Temperature 96.6 F L Temperature Source Temporal Pulse Rate 68 Respiratory Rate 18 Blood Pressure 138/59 H Blood Pressure Mean 85 Blood Pressure Source Monitor Weight Weight: 208 lb Body Mass Index (BMI) 33.5 Physical Exam Const alert, oriented x3, no apparent distress and well nourished General Appearance: cooperative and well developed Orientation / Consciousness: awake, oriented to person, oriented to place and oriented to time HEENT normocephalic and head/scalp atraumatic Head and Scalp: normal to inspection, normocephalic and atraumatic External Ear: external ears normal Eyes PERRL and EOMs intact bilaterally General Eye: normal appearance of both eyes Resp normal respiratory effort, normal air movement, no retractions and no use of accessory muscles Effort and Inspection: able to speak in complete sentences Extremity no calf tenderness General Extremity: Negative for clubbing or cyanosis Skin Wound Narrative: The wound on the left pretibial area persists, but appears to be smaller in size. It is generally pink and healthy in appearance. There is no sign of infection or cellulitis. There is a moderate amount of bioburden. Dimensions are documented elsewhere. Neuro oriented x3, CN's II-XII intact bilaterally and moves all extremities Sensorium / Orientation: awake, alert, oriented to person, oriented to place and oriented to time Psych Appearance: grossly normal and appropriate Attitude: calm Activity / Motor Behavior: appropriate eye contact Speech: normal speech Mood & Affect: euthymic mood Thought Process: normal thought process Thought Content: normal thought content Attention / Concentration: attention grossly intact Debridement Note Debridement Note Wound debrided: Left pretibial area Laterality: Left Type of Debridement: Excisional debridement Anesthesia Used: 5% Lidocaine Gel Depth: Down to and including healthy tissue and in the subcutaneous layer Percentage of wound debrided: 100 Instrument Used: 5mm curette Tissue Removed: Bioburden Severity: Fat Layer Exposed Amount of bleeding with debridement: Mild Bleeding Controlled with: Compression and gauze Patient tolerated procedure: Patient tolerated procedure well Post-Debridement Measurements and Additional Note: Post-Debridement Measurements/Treatment ROSENDO - Nurse 1 - General Ulcer Assessment Start: 10/03/21 09:17 Freq: Status: Active Protocol: SAM Activity Type Activity Date Activity User E-Sign Co-Sign Detail Recorded Client Recorded Date Recorded By Document 10/03/21 09:17 [id number] 10/03/21 09:22 DL Document 10/10/21 09:23 [facility] [id number] 10/10/21 09:28 [facility] Document 10/17/21 09:25 DL [id number] 10/17/21 09:28 DL 10/03/21 10/10/21 10/17/21 09:17 09:23 09:25 - Today's Visit Information Type of service Follow-up Visit Follow-up Visit Follow-up Visit (Physician/CHARTERED FINANCIAL ANALYST (Physician/CHARTERED FINANCIAL ANALYST (Physician/CHARTERED FINANCIAL ANALYST ) ) ) Arrival Mode Ambulatory Ambulatory Ambulatory Transfer Assistance None None None Patient Identification Verified (Name & Yes Yes Yes ) Patient Requires Transmission-Based No No Precautions Height and Weight Body Mass Index (BMI) 33.5 33.5 33.5 BMI Classification Obese Obese Obese Vital Signs Temperature (97.8 F-99.1 F) 97.8 F 96.3 F L 96.6 F L Temperature Source Temporal Temporal Temporal Pulse Rate (60-100) 89 75 68 Pulse Location Monitor Monitor Monitor Respiratory Rate (12-18) 20 H 16 18 Respiratory rate source Observation Observation Observation Oxygen Delivery Method Room Air Blood Pressure (90/60-120/80) 140/105 H 129/56 H 138/59 H Blood Pressure Mean 116 80 85 Source Monitor Monitor Monitor Position Sitting Blood Pressure Location Right Forearm History Since Last Visit- (Skip if this is Patient's initial visit) Have you changed medications since your No No No last visit? Any new allergies or adverse reactions No No No Had a fall/change in ADL's that may No No No increase risk of falls Signs or symptoms of abuse and/or No No No neglect since last visit Have you been in the hospital since your No No No last visit? Has dressing in place as prescribed Yes Yes Yes Has compression in place as prescribed Yes Yes N/A Has offloadiing in place as prescribed N/A N/A N/A Experienced any changes in pain level or No No management Left Footwear Regular Shoe Regular Shoe Right Footwear Regular Shoe Regular Shoe Pain Scale: 0-10 Numeric Is Patient Pain Free? Yes Yes WC - Nurse 1 - General Ulcer Measurement Start: 10/03/21 09:17 Freq: Status: Active Protocol: Activity Type Activity Date Activity User E-Sign Co-Sign Detail Recorded Client Recorded Date Recorded By Document 10/03/21 09:17 DL [id number] 10/03/21 09:22 DL Document 10/10/21 09:23 BMF [id number] 10/10/21 09:28 BMF Document 10/17/21 09:25 DL [id number] 10/17/21 09:28 DL 10/03/21 10/10/21 10/17/21 09:17 09:23 09:25 Wound Center Nurse 1 #1 left villatoro -Combined with other wound No -Current Size (cm) - Length 3 2.4 1.9 -Current Size (cm) - Width 2.1 1.9 1.5 -Current Size (cm) - Depth 0.2 0.1 0.2 -Total Square Cm 6.3 4.56 2.85 -Photo Taken No No No -Tunneling No -Undermining/Tunneling No -Circular Undermining No -Exudate Amt Medium Medium Medium -Exudate Type Serosanguineous Sanguineous Serosanguineous -Wound Margin Distinct, Distinct, Distinct, Outline Outline Outline Attached Attached Attached -Granulation Amt Medium (34-66%) Large (67-100%) Large (67-100%) -Granulation Quality Red Red [place] -Slough/Fibrin Yes -Necrosis Amt Medium (34-66%) Small (1-33%) Small (1-33%) -Necrotic Tissue Type Adherent Slough Adherent Slough Adherent Slough -Structure Exposed N/A -Texture (Dimple-wound Skin Appearance) Localized Edema Assessed, Scarring ,Scarring Scarring -Moisture (Dimple-wound Skin Appearance) No Abnormality Assessed,Dry/ Dry/Scaly Scaly -Color (Dimple-wound Skin Appearance) No Abnormality Assessed No Abnormality -Temperature (Dimple-wound Skin No Abnormality No Abnormality No Abnormality Appearance) (Pt Warm) (Pt Warm) (Pt Warm) -Tenderness on Palpation (Dimple-wound No No No Skin Appearance) -Ulcer Cleansing Rinsed/ Rinsed/ Rinsed/ Irrigated with Irrigated with Irrigated with Saline Saline Saline -Foul Odor after Cleansing No No No -Anesthetic Used 4% Lidocaine 5% Lidocaine 4% Lidocaine Solution Gel Solution Lower Limb Edema Present Yes Left Calf (cm) 42.2 42.6 Left Ankle (cm) 24.6 23.5 WC - Nurse 2 - General Ulcer CM Notes Start: 10/03/21 09:17 Freq: Status: Active Protocol: Activity Type Activity Date Activity User E-Sign Co-Sign Detail Recorded Client Recorded Date Recorded By Document 10/03/21 09:55 PL [id number] 10/03/21 09:56 PL Document 10/10/21 09:46 PL [id number] 10/10/21 09:48 PL 10/03/21 10/10/21 09:55 09:46 Wound Center Nurse 2 -Time 09:35 09:40 -Correct Patient Yes Yes -Correct Side, Site, Position Yes Yes -Correct Procedure Yes Yes -Procedure Performed Yes Yes -Type of Procedure Debridement Debridement -Clinical Debridement Subcutaneous Subcutaneous -Tissue Removed Subcutaneous Subcutaneous -Post Debridement (cm) - Length 3.0 2.4 -Post Debridement (cm) - Width 2.1 1.9 -Post Debridement (cm) - Depth 0.2 0.1 -Total Square (Post) (cm) 6.30 4.56 -Area of Debridement (cm) - Length 3.0 2.4 -Area of Debridement (cm) - Width 2.1 1.9 -Total Square (Area) (cm) 6.30 4.56 -Tunneling No No -Undermining/Tunneling No No -Circular Undermining No No -Wound/Ulcer Outcome Not Healed Not Healed -Ulcer Cleansing Rinsed/ Rinsed/ Irrigated with Irrigated with Saline Saline -Foul Odor after Cleansing No No -Bioengineered Tissue No No -Bleeding Controlled with Pressure Pressure -Treatment Response Procedure Procedure Tolerated Well Tolerated Well -Debridement - Subq, 1st 20sq cm Yes Yes - Nurse 3 - General Ulcer D/C NN Start: 10/03/21 09:17 Freq: Status: Active Protocol: Activity Type Activity Date Activity User E-Sign Co-Sign Detail Recorded Client Recorded Date Recorded By Document 10/03/21 09:42 KR [id number] 10/03/21 09:42 KR Document 10/10/21 09:46 MW [id number] 10/10/21 09:49 MW Document 10/17/21 09:45 DL [id number] 10/17/21 09:47 DL 10/03/21 10/10/21 10/17/21 09:42 09:46 09:45 Wound Care Nurse 3 #1 left villatoro -Ulcer Cleansing Rinsed/ Rinsed/ Rinsed/ Irrigated with Irrigated with Irrigated with Saline Saline Saline -Foul Odor after Cleansing No No -Negative Pressure Wound Therapy N/A -Primary Dressing Applied Aquacel Extra Aquacel Extra Aquacel Extra -Primary Dressing Covered/Secured with Dry Gauze,Dry Dry Gauze & Dry Gauze,Dry Gauze & Roll Roll Gauze, Gauze & Roll Gauze,Secured Secured with Gauze with Tape Tape -Aquacel Extra 1 1 1 Left -Tubular Bandage Double Layer -Size of Tubigrip Used Size E -Size E ($) 2 -Other tubigrip Treatment Response Procedure Procedure Tolerated Well Tolerated Well Pain Scale: 0-10 Numeric Is Patient Pain Free? Yes Yes Yes Teaching: Wound Center Dressing Your Wound -Person Taught Patient -Teaching Method Discussion, Demonstration -Response to teaching Verbalize understanding WC - Visit Discharge Discharge Condition Stable Stable Stable Ambulatory Status Ambulatory Ambulatory Ambulatory Transportation Private Auto Private Auto Private Auto Accompanied by self self Medication Reconcilliation completed & No provided to patient/care provider Clinical Summary of Care Provided Yes Lab / Micro Data Result Diagrams: 10/10/21 10:08 10/10/21 10:08 Assessment/Plan Assessment/Plan (1) Traumatic open wound of left lower leg: CODE(S): S81.802A - Unspecified open wound, left lower leg, initial encounter QUALIFIERS: Encounter type: initial encounter Qualified Code(s): S81.802A - Unspecified open wound, left lower leg, initial encounter (2) Peripheral vascular disease: CODE(S): I73.9 - Peripheral vascular disease, unspecified (3) Varicose veins with inflammation: CODE(S): I83.10 - Varicose veins of unspecified lower extremity with inflammation (4) Chronic venous insufficiency: CODE(S): I87.2 - Venous insufficiency (chronic) (peripheral) (5) Lower extremity edema: CODE(S): R60.0 - Localized edema (6) Swelling of lower extremity: CODE(S): M79.89 - Other specified soft tissue disorders (7) History of tonsillectomy: CODE(S): Z90.89 - Acquired absence of other organs (8) History of bilateral cataract extraction: CODE(S): Z98.41 - Cataract extraction status, right eye; Z98.42 - Cataract extraction status, left eye (9) History of total bilateral knee replacement: CODE(S): Z96.653 - Presence of artificial knee joint, bilateral (10) Gout: CODE(S): M10.9 - Gout, unspecified (11) Congestive heart failure: CODE(S): I50.9 - Heart failure, unspecified (12) Osteoarthritis: CODE(S): M19.90 - Unspecified osteoarthritis, unspecified site (13) Hiatal hernia: CODE(S): K44.9 - Diaphragmatic hernia without obstruction or gangrene (14) GERD (gastroesophageal reflux disease): CODE(S): K21.9 - Gastro-esophageal reflux disease without esophagitis (15) Hyperlipidemia: CODE(S): E78.5 - Hyperlipidemia, unspecified (16) Hypertension: CODE(S): I10 - Essential (primary) hypertension (17) Polyarthropathy: CODE(S): M13.0 - Polyarthritis, unspecified (18) Pulmonary hypertension: CODE(S): I27.20 - Pulmonary hypertension, unspecified (19) History of mitral valve repair: CODE(S): Z98.890 - Other specified postprocedural states (20) Nonrheumatic mitral (valve) insufficiency: CODE(S): I34.0 - Nonrheumatic mitral (valve) insufficiency (21) Atherosclerotic heart disease of [place] coronary artery without angina pectoris: CODE(S): I25.10 - Atherosclerotic heart disease of [place] coronary artery without angina pectoris QUALIFIERS: [place] vs. transplanted heart: [place] heart Qualified Code(s): I25.10 - Atherosclerotic heart disease of [place] coronary artery without angina pectoris (22) Heart murmur: CODE(S): R01.1 - Cardiac murmur, unspecified PLAN: This is a 76-year-old female with multiple pre-existing medical problems. Weeks prior to her presentation, the patient sustained a traumatic wound to the left pretibial area. Since that time, she had been using antibiotic ointment topically as well as antibacterial spray. We are to continue the use of Aquacel topically. The patient has been educated as to the appropriate means of application. Double Tubigrip's will also be used to minimize swelling and edema. Patient has been advised to keep her legs elevated to heart level, or higher. Activity has been encouraged. It is anticipated that serial debridements will be performed. Routine laboratory studies have been obtained, and reviewed. CBC is unremarkable. Comprehensive metabolic profile is generally unremarkable, though the serum prealbumin is slightly low. The patient has once again been encouraged to optimize her nutritional intake. A noninvasive lower extremity arterial study and a venous duplex examination will be obtained to assess the patient's arterial and venous status in the lower extremities. The patient is to return in 2 weeks for reassessment. Total time: 29 minutes
== END 2021-10-27 23:59 | disposition home or self-care (01) ==
LOC: WC 09:30
PROVIDERS: PCP Internal Medicine; Referring Provider Surgery; Visit Provider Surgery
DX: S81.832A Puncture wound without foreign body, left lower leg, initial encounter (principal); I11.0 Hypertensive heart disease with heart failure; I50.31 Acute diastolic (congestive) heart failure; I27.20 Pulmonary hypertension, unspecified; I73.9 Peripheral vascular disease, unspecified; M10.9 Gout, unspecified; Z79.1 Long term (current) use of non-steroidal anti-inflammatories (NSAID); K44.9 Diaphragmatic hernia without obstruction or gangrene; R01.1 Cardiac murmur, unspecified; Z87.891 Personal history of nicotine dependence; I87.2 Venous insufficiency (chronic) (peripheral); I25.10 Atherosclerotic heart disease of native coronary artery without angina pectoris; K21.9 Gastro-esophageal reflux disease without esophagitis; I34.0 Nonrheumatic mitral (valve) insufficiency; Z96.653 Presence of artificial knee joint, bilateral; R00.2 Palpitations; E78.5 Hyperlipidemia, unspecified; I83.90 Asymptomatic varicose veins of unspecified lower extremity; M19.90 Unspecified osteoarthritis, unspecified site; Z82.3 Family history of stroke; M79.89 Other specified soft tissue disorders; R60.0 Localized edema; V49.88XA Car occupant (driver) (passenger) injured in other specified transport accidents, initial encounter
CPT/HCPCS: 11042; 36415; 80053; 84134; 85025; 85652

== ENCOUNTER 2021-11-14 09:30 | Outpatient (RCR) | payer MEDICARE, SELFPAY ==
[2021-10-28 00:35] VITALS: BP 138/59; PULSE 68; RESP 18; TEMP 35.9; BMI 33.5
[2021-10-31 09:24] VITALS: BP 117/54; PULSE 69; RESP 20; TEMP 36.4; BMI 33.5
--- NOTE | 2021-10-31 13:31 | PCM.WC.HP ---
History of Present Illness Date of Service: 10/31/21 Chief Complaint: Traumatic wound, left pretibial area History of Wound: This is a 76-year-old female who presents with a traumatic wound on the left pretibial area, which occurred as a result of impacting this portion of her left leg against the step bar of a vehicle. The event occurred approximately 6 weeks ago. Patient has been treated previously with a course of oral doxycycline. X-rays of the area revealed no evidence of fracture or osteomyelitis. The patient has been using antibiotic ointment topically, as well as antibacterial spray. Patient denies a history of thrombophlebitis. She does experience mild leg swelling, often at days end. She ambulates liberally without difficulty or leg pain. She sleeps on a flat mattress at night. FOR[facility]LY [facility] Medical History Atherosclerotic heart disease of [place] coronary artery without angina pectoris Bilateral pleural effusion Chronic venous insufficiency Congestive heart failure GERD (gastroesophageal reflux disease) Gout Hiatal hernia History of pleural effusion Hyperlipidemia Hypertension Lower extremity edema Nonrheumatic mitral (valve) insufficiency Osteoarthritis Peripheral vascular disease Polyarthropathy Pulmonary hypertension Swelling of lower extremity Traumatic open wound of left lower leg Varicose veins with inflammation Home Medications omeprazole 40 mg PO DAILY 03/28/18 [History Last Taken 01/09/20 06:00] potassium chloride 20 mEq tablet,extended release(part/cryst) 20 meq PO DAILY #90 tab 11/25/18 [Rx Last Taken Unknown] loratadine 10 mg tablet 10 mg PO DAILY PRN 08/21/19 [History Last Taken Unknown] buspirone 5 mg PO BID 01/09/20 [History Last Taken 01/09/20 09:00] allopurinol 100 mg tablet 100 mg PO DAILY 04/27/20 [History Last Taken Unknown] aspirin 81 mg tablet,delayed release 81 mg PO DAILY 04/27/20 [History Last Taken Unknown] acetaminophen 500 mg tablet 500 mg PO Q6H PRN 02/17/21 [History Last Taken Unknown] calcium carbonate 500 mg-vitamin D3 3.125 mcg (125 unit) tablet 1 tablet PO DAILY 02/17/21 [History Last Taken Unknown] meloxicam 15 mg tablet 15 mg PO DAILY 02/17/21 [History Last Taken Unknown] multivitamin 1 tablet PO DAILY 02/17/21 [History Last Taken Unknown] metoprolol tartrate 25 mg tablet 25 mg PO BID #180 tab 06/27/21 [Rx Last Taken Unknown] furosemide 40 mg tablet 40 mg PO DAILY #90 tab 08/14/21 [Rx Last Taken Unknown] Allergy/AdvReac Type Severity Reaction Status Date / Time codeine Allergy Unknown Rash Verified 08/14/21 09:51 tramadol Allergy Itching Verified 08/14/21 09:51 atorvastatin [From Lipitor] AdvReac hives and Verified 08/14/21 09:51 itching seasonal Allergy Other Uncoded 09/26/21 10:27 Family History Mother Heart disease Grandmother CVA (cerebral vascular accident) Surgical History History of bilateral cataract extraction History of bilateral cataract extraction History of left heart catheterization (LHC) History of left knee replacement History of mitral valve repair (07/08/17) History of right knee joint replacement History of tonsillectomy History of tonsillectomy History of total bilateral knee replacement History of tubal ligation Social History Smoking Status: Former smoker alcohol intake: current alcohol intake frequency: a few times a week Alcohol type: wine substance use type: does not use diet: low salt caffeine: Yes Type: coffee Number of servings: 3 what type of physical activity do you participate in: other details: PT frequency: 3-4 times per week duration: 30-45 minutes/day seatbelt use: always do you feel safe at home: Yes Vital Signs Vital Signs Vital Signs: 10/31/21 09:24 Temperature 97.5 F L Temperature Source Temporal Pulse Rate 69 Respiratory Rate 20 H Blood Pressure 117/54 L Blood Pressure Mean 75 Blood Pressure Source Monitor Weight Weight: 208 lb Body Mass Index (BMI) 33.5 Physical Exam Const alert, oriented x3, no apparent distress and well nourished General Appearance: cooperative and well developed Orientation / Consciousness: awake, oriented to person, oriented to place and oriented to time HEENT normocephalic and head/scalp atraumatic Head and Scalp: normal to inspection, normocephalic and atraumatic External Ear: external ears normal Eyes PERRL and EOMs intact bilaterally General Eye: normal appearance of both eyes Resp normal respiratory effort, normal air movement, no retractions and no use of accessory muscles Effort and Inspection: able to speak in complete sentences Extremity no calf tenderness General Extremity: Negative for clubbing or cyanosis Skin Wound Narrative: The ulceration in the left pretibial area is much smaller in size. Dimensions are documented elsewhere. There is a small amount of bioburden. There is no sign of infection or cellulitis. Only slight swelling is noted in the left lower extremity. Neuro oriented x3, CN's II-XII intact bilaterally and moves all extremities Sensorium / Orientation: awake, alert, oriented to person, oriented to place and oriented to time Psych Appearance: grossly normal and appropriate Attitude: calm Activity / Motor Behavior: appropriate eye contact Speech: normal speech Mood & Affect: euthymic mood Thought Process: normal thought process Thought Content: normal thought content Attention / Concentration: attention grossly intact Debridement Note Debridement Note Wound debrided: Left pretibial wound Laterality: Left Type of Debridement: Excisional debridement Anesthesia Used: 5% Lidocaine Gel Depth: Down to and including healthy tissue and in the subcutaneous layer Percentage of wound debrided: 100 Instrument Used: 3mm curette Tissue Removed: Bioburden and senescent material Severity: Fat Layer Exposed Amount of bleeding with debridement: Mild Bleeding Controlled with: Compression and gauze Patient tolerated procedure: Patient tolerated procedure well Post-Debridement Measurements and Additional Note: Post-Debridement Measurements/Treatment - Nurse 1 - General Ulcer Assessment Start: 10/31/21 09:22 Freq: Status: Active Protocol: SAM Activity Type Activity Date Activity User E-Sign Co-Sign Detail Recorded Client Recorded Date Recorded By Document 10/31/21 09:24 DL [id number] 10/31/21 09:34 DL 10/31/21 09:24 - Today's Visit Information Type of service Follow-up Visit (Physician/W[employer] ) Arrival Mode Ambulatory Transfer Assistance None Patient Identification Verified (Name & Yes ) Patient Requires Transmission-Based No Precautions Height and Weight Body Mass Index (BMI) 33.5 BMI Classification Obese Vital Signs Temperature (97.8 F-99.1 F) 97.5 F L Temperature Source Temporal Pulse Rate (60-100) 69 Pulse Location Monitor Respiratory Rate (12-18) 20 H Respiratory rate source Observation Blood Pressure (90/60-120/80) 117/54 L Blood Pressure Mean 75 Source Monitor History Since Last Visit- (Skip if this is Patient's initial visit) Have you changed medications since your No last visit? Any new allergies or adverse reactions No Had a fall/change in ADL's that may No increase risk of falls Signs or symptoms of abuse and/or No neglect since last visit Have you been in the hospital since your No last visit? Has dressing in place as prescribed Yes Has compression in place as prescribed Yes Has offloadiing in place as prescribed N/A Experienced any changes in pain level or No management Pain Scale: 0-10 Numeric Is Patient Pain Free? Yes WC - Nurse 1 - General Ulcer Measurement Start: 10/31/21 09:22 Freq: Status: Active Protocol: Activity Type Activity Date Activity User E-Sign Co-Sign Detail Recorded Client Recorded Date Recorded By Document 10/31/21 09:24 DL [id number] 10/31/21 09:34 DL 10/31/21 09:24 Wound Center Nurse 1 #1 left villatoro -Current Size (cm) - Length 0.5 -Current Size (cm) - Width 0.5 -Current Size (cm) - Depth 0.1 -Total Square Cm 0.25 -Photo Taken No -Exudate Amt Small -Wound Margin Distinct, Outline Attached -Granulation Amt Large (67-100%) -Granulation Quality Red -Necrosis Amt Small (1-33%) -Necrotic Tissue Type Eschar -Structure Exposed N/A -Texture (Dimple-wound Skin Appearance) Scarring -Moisture (Dimple-wound Skin Appearance) No Abnormality -Color (Dimple-wound Skin Appearance) No Abnormality -Temperature (Dimple-wound Skin No Abnormality Appearance) (Pt Warm) -Tenderness on Palpation (Dimple-wound No Skin Appearance) -Ulcer Cleansing Soap and Water -Foul Odor after Cleansing Yes, Due to Product Use -Anesthetic Used 5% Lidocaine Gel Left Calf (cm) 40.5 Left Ankle (cm) 22 WC - Nurse 2 - General Ulcer CM Notes Start: 10/31/21 09:22 Freq: Status: Active Protocol: Activity Type Activity Date Activity User E-Sign Co-Sign Detail Recorded Client Recorded Date Recorded By Document 10/31/21 13:17 PL [id number] 10/31/21 13:18 PL 10/31/21 13:17 Wound Center Nurse 2 #1 left villatoro -Time 10:08 -Correct Patient Yes -Correct Side, Site, Position Yes -Correct Procedure Yes -Procedure Performed Yes -Type of Procedure Debridement -Clinical Debridement Subcutaneous -Tissue Removed Subcutaneous -Post Debridement (cm) - Length 0.5 -Post Debridement (cm) - Width 0.5 -Post Debridement (cm) - Depth 0.1 -Total Square (Post) (cm) 0.25 -Area of Debridement (cm) - Length 0.5 -Area of Debridement (cm) - Width 0.5 -Total Square (Area) (cm) 0.25 -Tunneling No -Undermining/Tunneling No -Circular Undermining No -Wound/Ulcer Outcome Not Healed -Ulcer Cleansing Rinsed/ Irrigated with Saline -Foul Odor after Cleansing No -Bioengineered Tissue No -Bleeding Controlled with Pressure -Treatment Response Procedure Tolerated Well -Debridement - Subq, 1st 20sq cm Yes WC - Nurse 3 - General Ulcer D/C NN Start: 10/31/21 09:22 Freq: Status: Active Protocol: Activity Type Activity Date Activity User E-Sign Co-Sign Detail Recorded Client Recorded Date Recorded By Document 10/31/21 10:23 [facility] [id number] 10/31/21 10:23 [facility] 10/31/21 10:23 Wound Care Nurse 3 -Ulcer Cleansing Rinsed/ Irrigated with Saline -Foul Odor after Cleansing No -Primary Dressing Applied Aquacel Extra -Primary Dressing Covered/Secured with Dry Gauze & Roll Gauze, Secured with Tape -Aquacel Extra 1 Left -Other own double layer tubi applied Treatment Response Procedure Tolerated Well Pain Scale: 0-10 Numeric Is Patient Pain Free? Yes WC - Visit Discharge Discharge Condition Stable Ambulatory Status Ambulatory Transportation Private Auto Assessment/Plan Assessment/Plan (1) Traumatic open wound of left lower leg: CODE(S): S81.802A - Unspecified open wound, left lower leg, initial encounter QUALIFIERS: Encounter type: initial encounter Qualified Code(s): S81.802A - Unspecified open wound, left lower leg, initial encounter (2) Lower extremity edema: CODE(S): R60.0 - Localized edema (3) Swelling of lower extremity: CODE(S): M79.89 - Other specified soft tissue disorders (4) Peripheral vascular disease: CODE(S): I73.9 - Peripheral vascular disease, unspecified (5) Varicose veins with inflammation: CODE(S): I83.10 - Varicose veins of unspecified lower extremity with inflammation (6) Chronic venous insufficiency: CODE(S): I87.2 - Venous insufficiency (chronic) (peripheral) (7) History of tonsillectomy: CODE(S): Z90.89 - Acquired absence of other organs (8) History of total bilateral knee replacement: CODE(S): Z96.653 - Presence of artificial knee joint, bilateral (9) History of bilateral cataract extraction: CODE(S): Z98.41 - Cataract extraction status, right eye; Z98.42 - Cataract extraction status, left eye (10) Gout: CODE(S): M10.9 - Gout, unspecified (11) Osteoarthritis: CODE(S): M19.90 - Unspecified osteoarthritis, unspecified site (12) Hiatal hernia: CODE(S): K44.9 - Diaphragmatic hernia without obstruction or gangrene (13) GERD (gastroesophageal reflux disease): CODE(S): K21.9 - Gastro-esophageal reflux disease without esophagitis (14) Hyperlipidemia: CODE(S): E78.5 - Hyperlipidemia, unspecified (15) Hypertension: CODE(S): I10 - Essential (primary) hypertension (16) Polyarthropathy: CODE(S): M13.0 - Polyarthritis, unspecified (17) Pulmonary hypertension: CODE(S): I27.20 - Pulmonary hypertension, unspecified (18) History of mitral valve repair: CODE(S): Z98.890 - Other specified postprocedural states (19) Nonrheumatic mitral (valve) insufficiency: CODE(S): I34.0 - Nonrheumatic mitral (valve) insufficiency (20) Atherosclerotic heart disease of [place] coronary artery without angina pectoris: CODE(S): I25.10 - Atherosclerotic heart disease of [place] coronary artery without angina pectoris QUALIFIERS: [place] vs. transplanted heart: [place] heart Qualified Code(s): I25.10 - Atherosclerotic heart disease of [place] coronary artery without angina pectoris (21) Heart murmur: CODE(S): R01.1 - Cardiac murmur, unspecified PLAN: This is a 76-year-old female with multiple pre-existing medical problems. Weeks prior to her presentation, the patient sustained a traumatic wound to the left pretibial area. Since that time, she had been using antibiotic ointment topically as well as antibacterial spray. We are to continue the use of Aquacel topically. The patient has been educated as to the appropriate means of application. Double Tubigrip's will also be used to minimize swelling and edema. The patient has been advised to keep her legs elevated to heart level, or higher. Activity has been encouraged. It is anticipated that serial debridements will be performed. Routine laboratory studies have been obtained, and reviewed. CBC is unremarkable. Comprehensive metabolic profile is generally unremarkable, though the serum prealbumin is slightly low. The patient has once again been encouraged to optimize her nutritional intake. A noninvasive lower extremity arterial study and a venous duplex examination will be obtained to assess the patient's arterial and venous status in the lower extremities. The patient has been provided a prescription for graduated compression stockings of 20 to 30 mmHg compression, knee-high length. The patient is to return in 1 week for reassessment. Total time: 28minutes
[2021-11-07 09:35] VITALS: BP 139/70; PULSE 74; RESP 16; TEMP 36; BMI 33.5
--- NOTE | 2021-11-07 12:34 | PCM.WC.HP ---
History of Present Illness Date of Service: 11/07/21 Chief Complaint: Traumatic wound, left pretibial area History of Wound: This is a 76-year-old female who presented with a traumatic wound on the left pretibial area, which occurred as a result of impacting this portion of her left leg against the step bar of a vehicle. The event occurred approximately 6 weeks prior to her presentation. Patient had been treated previously with a course of oral doxycycline. X-rays of the area revealed no evidence of fracture or osteomyelitis. The patient had been using antibiotic ointment topically, as well as antibacterial spray. Patient denies a history of thrombophlebitis. She does experience mild leg swelling, often at days end. She ambulates liberally without difficulty or leg pain. She sleeps on a flat mattress at night. [facility] Medical History Atherosclerotic heart disease of [place] coronary artery without angina pectoris Bilateral pleural effusion Chronic venous insufficiency Congestive heart failure GERD (gastroesophageal reflux disease) Gout Hiatal hernia History of pleural effusion Hyperlipidemia Hypertension Lower extremity edema Nonrheumatic mitral (valve) insufficiency Osteoarthritis Peripheral vascular disease Polyarthropathy Pulmonary hypertension Swelling of lower extremity Traumatic open wound of left lower leg Varicose veins with inflammation Home Medications omeprazole 40 mg PO DAILY 03/28/18 [History Last Taken 01/09/20 06:00] potassium chloride 20 mEq tablet,extended release(part/cryst) 20 meq PO DAILY #90 tab 11/25/18 [Rx Last Taken Unknown] loratadine 10 mg tablet 10 mg PO DAILY PRN 08/21/19 [History Last Taken Unknown] buspirone 5 mg PO BID 01/09/20 [History Last Taken 01/09/20 09:00] allopurinol 100 mg tablet 100 mg PO DAILY 04/27/20 [History Last Taken Unknown] aspirin 81 mg tablet,delayed release 81 mg PO DAILY 04/27/20 [History Last Taken Unknown] acetaminophen 500 mg tablet 500 mg PO Q6H PRN 02/17/21 [History Last Taken Unknown] calcium carbonate 500 mg-vitamin D3 3.125 mcg (125 unit) tablet 1 tablet PO DAILY 02/17/21 [History Last Taken Unknown] meloxicam 15 mg tablet 15 mg PO DAILY 02/17/21 [History Last Taken Unknown] multivitamin 1 tablet PO DAILY 02/17/21 [History Last Taken Unknown] metoprolol tartrate 25 mg tablet 25 mg PO BID #180 tab 06/27/21 [Rx Last Taken Unknown] furosemide 40 mg tablet 40 mg PO DAILY #90 tab 08/14/21 [Rx Last Taken Unknown] Allergy/AdvReac Type Severity Reaction Status Date / Time codeine Allergy Unknown Rash Verified 08/14/21 09:51 tramadol Allergy Itching Verified 08/14/21 09:51 atorvastatin [From Lipitor] AdvReac hives and Verified 08/14/21 09:51 itching seasonal Allergy Other Uncoded 09/26/21 10:27 Family History Mother Heart disease Grandmother CVA (cerebral vascular accident) Surgical History History of bilateral cataract extraction History of bilateral cataract extraction History of left heart catheterization (LHC) History of left knee replacement History of mitral valve repair (07/08/17) History of right knee joint replacement History of tonsillectomy History of tonsillectomy History of total bilateral knee replacement History of tubal ligation Social History Smoking Status: Former smoker alcohol intake: current alcohol intake frequency: a few times a week Alcohol type: wine substance use type: does not use diet: low salt caffeine: Yes Type: coffee Number of servings: 3 what type of physical activity do you participate in: other details: PT frequency: 3-4 times per week duration: 30-45 minutes/day seatbelt use: always do you feel safe at home: Yes Vital Signs Vital Signs Vital Signs: 11/07/21 09:35 Temperature 96.8 F L Temperature Source Temporal Pulse Rate 74 Respiratory Rate 16 Blood Pressure 139/70 H Blood Pressure Mean 93 Blood Pressure Source Monitor Blood Pressure Position Sitting Blood Pressure Location Left Arm Oxygen Delivery Method Room Air Weight Weight: 208 lb Body Mass Index (BMI) 33.5 Physical Exam Const alert, oriented x3, no apparent distress and well nourished General Appearance: cooperative and well developed Orientation / Consciousness: awake, oriented to person, oriented to place and oriented to time HEENT normocephalic and head/scalp atraumatic Head and Scalp: normal to inspection, normocephalic and atraumatic External Ear: external ears normal Eyes PERRL and EOMs intact bilaterally General Eye: normal appearance of both eyes Resp normal respiratory effort, normal air movement, no retractions and no use of accessory muscles Effort and Inspection: able to speak in complete sentences Extremity no calf tenderness General Extremity: Negative for clubbing or cyanosis Skin Wound Narrative: The traumatic wound on the left pretibial area is much smaller in size. There is evidence of epithelialization. There is no sign of infection or cellulitis. There is a small amount of bioburden. Dimensions are documented elsewhere. Neuro oriented x3 and CN's II-XII intact bilaterally Sensorium / Orientation: awake, alert, oriented to person, oriented to place and oriented to time Psych Appearance: grossly normal and appropriate Attitude: calm Activity / Motor Behavior: appropriate eye contact Speech: normal speech Mood & Affect: euthymic mood Thought Process: normal thought process Thought Content: normal thought content Attention / Concentration: attention grossly intact Debridement Note Debridement Note Wound debrided: Left pretibial wound Laterality: Left Type of Debridement: Excisional debridement Anesthesia Used: 5% Lidocaine Gel Depth: Down to and including healthy tissue and in the subcutaneous layer Percentage of wound debrided: 100 Instrument Used: 3mm curette Tissue Removed: Bioburden Severity: Fat Layer Exposed Amount of bleeding with debridement: Mild Bleeding Controlled with: Compression and gauze Patient tolerated procedure: Patient tolerated procedure well Post-Debridement Measurements and Additional Note: Post-Debridement Measurements/Treatment ROSENDO - Nurse 1 - General Ulcer Assessment Start: 10/31/21 09:22 Freq: Status: Active Protocol: SAM Activity Type Activity Date Activity User E-Sign Co-Sign Detail Recorded Client Recorded Date Recorded By Document 10/31/21 09:24 DL [id number] 10/31/21 09:34 DL Document 11/07/21 09:35 MW [id number] 11/07/21 09:38 MW 10/31/21 11/07/21 09:24 09:35 - Today's Visit Information Type of service Follow-up Visit Follow-up Visit (Physician/STAGECRAFT TEACHER (Physician/STAGECRAFT TEACHER ) ) Arrival Mode Ambulatory Ambulatory Transfer Assistance None None Accompanied by self Patient Identification Verified (Name & Yes Yes ) Patient Requires Transmission-Based No No Precautions Safety Precautions NA Height and Weight Body Mass Index (BMI) 33.5 33.5 BMI Classification Obese Obese Vital Signs Temperature (97.8 F-99.1 F) 97.5 F L 96.8 F L Temperature Source Temporal Temporal Pulse Rate (60-100) 69 74 Pulse Location Monitor Monitor Respiratory Rate (12-18) 20 H 16 Respiratory rate source Observation Observation Oxygen Delivery Method Room Air Blood Pressure (90/60-120/80) 117/54 L 139/70 H Blood Pressure Mean 75 93 Source Monitor Monitor Position Sitting Blood Pressure Location Left Arm History Since Last Visit- (Skip if this is Patient's initial visit) Have you changed medications since your No No last visit? Any new allergies or adverse reactions No No Had a fall/change in ADL's that may No No increase risk of falls Signs or symptoms of abuse and/or No No neglect since last visit Have you been in the hospital since your No No last visit? Has dressing in place as prescribed Yes Yes Has compression in place as prescribed Yes Yes Has offloadiing in place as prescribed N/A N/A Experienced any changes in pain level or No No management Left Footwear Regular Shoe Right Footwear Regular Shoe Pain Scale: 0-10 Numeric Is Patient Pain Free? Yes Yes WC - Nurse 1 - General Ulcer Measurement Start: 10/31/21 09:22 Freq: Status: Active Protocol: Activity Type Activity Date Activity User E-Sign Co-Sign Detail Recorded Client Recorded Date Recorded By Document 10/31/21 09:24 DL [id number] 10/31/21 09:34 DL Document 11/07/21 09:35 MW [id number] 11/07/21 09:38 MW 10/31/21 11/07/21 09:24 09:35 Wound Center Nurse 1 #1 left villatoro -Combined with other wound No -Current Size (cm) - Length 0.5 0.1 -Current Size (cm) - Width 0.5 0.1 -Current Size (cm) - Depth 0.1 0.1 -Total Square Cm 0.25 0.01 -Photo Taken No No -Epithelialization Medium 34-66% -Tunneling No -Undermining/Tunneling No -Circular Undermining No -Exudate Amt Small None Present -Wound Margin Distinct, Flat & Intact Outline Attached -Granulation Amt Large (67-100%) Medium (34-66%) -Granulation Quality [place] -Necrosis Amt Small (1-33%) Small (1-33%) -Necrotic Tissue Type Eschar Adherent Slough -Structure Exposed N/A N/A -Texture (Dimple-wound Skin Appearance) Scarring Assessed, Scarring -Moisture (Dimple-wound Skin Appearance) No Abnormality No Abnormality, Assessed -Color (Dimple-wound Skin Appearance) No Abnormality No Abnormality, Assessed -Temperature (Dimple-wound Skin No Abnormality No Abnormality Appearance) (Pt Warm) (Pt Warm) -Tenderness on Palpation (Dimple-wound No No Skin Appearance) -Ulcer Cleansing Soap and Water Rinsed/ Irrigated with Saline -Foul Odor after Cleansing Yes, Due to No Product Use -Anesthetic Used 5% Lidocaine 5% Lidocaine Gel Gel Lower Limb Edema Present Yes Left Calf (cm) 40.5 40.2 Left Ankle (cm) 22 22.0 WC - Nurse 2 - General Ulcer CM Notes Start: 10/31/21 09:22 Freq: Status: Active Protocol: Activity Type Activity Date Activity User E-Sign Co-Sign Detail Recorded Client Recorded Date Recorded By Document 10/31/21 13:17 PL [id number] 10/31/21 13:18 PL 10/31/21 13:17 Wound Center Nurse 2 #1 left villatoro -Time 10:08 -Correct Patient Yes -Correct Side, Site, Position Yes -Correct Procedure Yes -Procedure Performed Yes -Type of Procedure Debridement -Clinical Debridement Subcutaneous -Tissue Removed Subcutaneous -Post Debridement (cm) - Length 0.5 -Post Debridement (cm) - Width 0.5 -Post Debridement (cm) - Depth 0.1 -Total Square (Post) (cm) 0.25 -Area of Debridement (cm) - Length 0.5 -Area of Debridement (cm) - Width 0.5 -Total Square (Area) (cm) 0.25 -Tunneling No -Undermining/Tunneling No -Circular Undermining No -Wound/Ulcer Outcome Not Healed -Ulcer Cleansing Rinsed/ Irrigated with Saline -Foul Odor after Cleansing No -Bioengineered Tissue No -Bleeding Controlled with Pressure -Treatment Response Procedure Tolerated Well -Debridement - Subq, 1st 20sq cm Yes WC - Nurse 3 - General Ulcer D/C NN Start: 10/31/21 09:22 Freq: Status: Active Protocol: Activity Type Activity Date Activity User E-Sign Co-Sign Detail Recorded Client Recorded Date Recorded By Document 10/31/21 10:23 [facility] [id number] 10/31/21 10:23 [facility] Document 11/07/21 10:02 MW [id number] 11/07/21 10:03 MW 10/31/21 11/07/21 10:23 10:02 Wound Care Nurse 3 #1 left villatoro -Ulcer Cleansing Rinsed/ Rinsed/ Irrigated with Irrigated with Saline Saline -Foul Odor after Cleansing No No -Negative Pressure Wound Therapy N/A -Primary Dressing Applied Aquacel Extra Aquacel Extra -Primary Dressing Covered/Secured with Dry Gauze & Dry Gauze & Roll Gauze, Roll Gauze, Secured with Secured with Tape Tape -Aquacel Extra 1 1 Left -Lotion applied to leg before No compression wrap -Tubular Bandage Double Layer -Size of Tubigrip Used Size E -Size E ($) 2 -Other own double layer tubi applied Treatment Response Procedure Procedure Tolerated Well Tolerated Well Pain Scale: 0-10 Numeric Is Patient Pain Free? Yes Yes Teaching: Wound Center Dressing Your Wound -Person Taught Patient -Teaching Method Discussion, Demonstration -Response to teaching Verbalize understanding WC - Visit Discharge Discharge Condition Stable Stable Ambulatory Status Ambulatory Ambulatory Transportation Private Auto Private Auto Accompanied by self Medication Reconcilliation completed & No provided to patient/care provider Clinical Summary of Care Provided Yes Assessment/Plan Assessment/Plan (1) Traumatic open wound of left lower leg: CODE(S): S81.802A - Unspecified open wound, left lower leg, initial encounter QUALIFIERS: Encounter type: initial encounter Qualified Code(s): S81.802A - Unspecified open wound, left lower leg, initial encounter (2) Lower extremity edema: CODE(S): R60.0 - Localized edema (3) Swelling of lower extremity: CODE(S): M79.89 - Other specified soft tissue disorders (4) Peripheral vascular disease: CODE(S): I73.9 - Peripheral vascular disease, unspecified (5) Varicose veins with inflammation: CODE(S): I83.10 - Varicose veins of unspecified lower extremity with inflammation (6) Chronic venous insufficiency: CODE(S): I87.2 - Venous insufficiency (chronic) (peripheral) (7) History of tonsillectomy: CODE(S): Z90.89 - Acquired absence of other organs (8) History of bilateral cataract extraction: CODE(S): Z98.41 - Cataract extraction status, right eye; Z98.42 - Cataract extraction status, left eye (9) History of total bilateral knee replacement: CODE(S): Z96.653 - Presence of artificial knee joint, bilateral (10) Gout: CODE(S): M10.9 - Gout, unspecified (11) Osteoarthritis: CODE(S): M19.90 - Unspecified osteoarthritis, unspecified site (12) Hiatal hernia: CODE(S): K44.9 - Diaphragmatic hernia without obstruction or gangrene (13) GERD (gastroesophageal reflux disease): CODE(S): K21.9 - Gastro-esophageal reflux disease without esophagitis (14) Hyperlipidemia: CODE(S): E78.5 - Hyperlipidemia, unspecified (15) Hypertension: CODE(S): I10 - Essential (primary) hypertension (16) Polyarthropathy: CODE(S): M13.0 - Polyarthritis, unspecified (17) Pulmonary hypertension: CODE(S): I27.20 - Pulmonary hypertension, unspecified (18) History of mitral valve repair: CODE(S): Z98.890 - Other specified postprocedural states (19) Nonrheumatic mitral (valve) insufficiency: CODE(S): I34.0 - Nonrheumatic mitral (valve) insufficiency (20) Atherosclerotic heart disease of [place] coronary artery without angina pectoris: CODE(S): I25.10 - Atherosclerotic heart disease of [place] coronary artery without angina pectoris QUALIFIERS: [place] vs. transplanted heart: [place] heart Qualified Code(s): I25.10 - Atherosclerotic heart disease of [place] coronary artery without angina pectoris (21) Heart murmur: CODE(S): R01.1 - Cardiac murmur, unspecified PLAN: This is a 76-year-old female with multiple pre-existing medical problems. Weeks prior to her presentation, the patient sustained a traumatic wound to the left pretibial area. Since that time, she had been using antibiotic ointment topically as well as antibacterial spray. We are to continue the use of Aquacel topically. The patient has been educated as to the appropriate means of application. The patient has been advised to keep her legs elevated to heart level, or higher. Activity has been encouraged. Routine laboratory studies have been obtained, and reviewed. CBC is unremarkable. Comprehensive metabolic profile is generally unremarkable, though the serum prealbumin is slightly low. The patient has once again been encouraged to optimize her nutritional intake. A noninvasive lower extremity arterial study and a venous duplex examination will be obtained to assess the patient's arterial and venous status in the lower extremities. The patient has been provided a prescription for graduated compression stockings of 20 to 30 mmHg compression, knee-high length, which have been obtained, and are to be worn on a daily basis. The patient is to return in 1 week for reassessment. Total time: 29 minutes
[2021-11-14 09:22] VITALS: BP 134/64; PULSE 78; RESP 16; TEMP 35.9; BMI 33.5
--- NOTE | 2021-11-14 10:06 | PCM.WC.HP ---
History of Present Illness Date of Service: 11/14/21 Chief Complaint: Traumatic wound, left pretibial area History of Wound: This is a 76-year-old female who presented with a traumatic wound on the left pretibial area, which occurred as a result of impacting this portion of her left leg against the step bar of a vehicle. The event occurred approximately 6 weeks prior to her presentation. Patient had been treated previously with a course of oral doxycycline. X-rays of the area revealed no evidence of fracture or osteomyelitis. The patient had been using antibiotic ointment topically, as well as antibacterial spray. Patient denies a history of thrombophlebitis. She does experience mild leg swelling, often at days end. She ambulates liberally without difficulty or leg pain. She sleeps on a flat mattress at night. [facility] Medical History Atherosclerotic heart disease of [place] coronary artery without angina pectoris Bilateral pleural effusion Chronic venous insufficiency Congestive heart failure GERD (gastroesophageal reflux disease) Gout Hiatal hernia History of pleural effusion Hyperlipidemia Hypertension Lower extremity edema Nonrheumatic mitral (valve) insufficiency Osteoarthritis Peripheral vascular disease Polyarthropathy Pulmonary hypertension Swelling of lower extremity Traumatic open wound of left lower leg Varicose veins with inflammation Home Medications omeprazole 40 mg PO DAILY 03/28/18 [History Last Taken 01/09/20 06:00] potassium chloride 20 mEq tablet,extended release(part/cryst) 20 meq PO DAILY #90 tab 11/25/18 [Rx Last Taken Unknown] loratadine 10 mg tablet 10 mg PO DAILY PRN 08/21/19 [History Last Taken Unknown] buspirone 5 mg PO BID 01/09/20 [History Last Taken 01/09/20 09:00] allopurinol 100 mg tablet 100 mg PO DAILY 04/27/20 [History Last Taken Unknown] aspirin 81 mg tablet,delayed release 81 mg PO DAILY 04/27/20 [History Last Taken Unknown] acetaminophen 500 mg tablet 500 mg PO Q6H PRN 02/17/21 [History Last Taken Unknown] calcium carbonate 500 mg-vitamin D3 3.125 mcg (125 unit) tablet 1 tablet PO DAILY 02/17/21 [History Last Taken Unknown] meloxicam 15 mg tablet 15 mg PO DAILY 02/17/21 [History Last Taken Unknown] multivitamin 1 tablet PO DAILY 02/17/21 [History Last Taken Unknown] metoprolol tartrate 25 mg tablet 25 mg PO BID #180 tab 06/27/21 [Rx Last Taken Unknown] furosemide 40 mg tablet 40 mg PO DAILY #90 tab 08/14/21 [Rx Last Taken Unknown] Allergy/AdvReac Type Severity Reaction Status Date / Time codeine Allergy Unknown Rash Verified 08/14/21 09:51 tramadol Allergy Itching Verified 08/14/21 09:51 atorvastatin [From Lipitor] AdvReac hives and Verified 08/14/21 09:51 itching seasonal Allergy Other Uncoded 09/26/21 10:27 Family History Mother Heart disease Grandmother CVA (cerebral vascular accident) Surgical History History of bilateral cataract extraction History of bilateral cataract extraction History of left heart catheterization (LHC) History of left knee replacement History of mitral valve repair (07/08/17) History of right knee joint replacement History of tonsillectomy History of tonsillectomy History of total bilateral knee replacement History of tubal ligation Social History Smoking Status: Former smoker alcohol intake: current alcohol intake frequency: a few times a week Alcohol type: wine substance use type: does not use diet: low salt caffeine: Yes Type: coffee Number of servings: 3 what type of physical activity do you participate in: other details: PT frequency: 3-4 times per week duration: 30-45 minutes/day seatbelt use: always do you feel safe at home: Yes Vital Signs Vital Signs Vital Signs: 11/14/21 09:22 Temperature 96.7 F L Temperature Source Temporal Pulse Rate 78 Respiratory Rate 16 Blood Pressure 134/64 H Blood Pressure Mean 87 Blood Pressure Source Monitor Blood Pressure Position Sitting Blood Pressure Location Left Arm Oxygen Delivery Method Room Air Weight Weight: 208 lb Body Mass Index (BMI) 33.5 Physical Exam Const alert, oriented x3, no apparent distress and well nourished General Appearance: cooperative and well developed Orientation / Consciousness: awake, oriented to person, oriented to place and oriented to time HEENT normocephalic and head/scalp atraumatic Head and Scalp: normal to inspection, normocephalic and atraumatic External Ear: external ears normal Eyes PERRL and EOMs intact bilaterally General Eye: normal appearance of both eyes Resp normal respiratory effort, normal air movement, no retractions and no use of accessory muscles Effort and Inspection: able to speak in complete sentences Extremity no calf tenderness General Extremity: Negative for clubbing or cyanosis Skin Wound Narrative: There is no significant swelling or edema in the patient's left lower extremity. The traumatic wound on the left pretibial area is now completely healed and epithelialized. There is no sign of infection or cellulitis. Neuro oriented x3, CN's II-XII intact bilaterally and moves all extremities Sensorium / Orientation: awake, alert, oriented to person, oriented to place and oriented to time Psych Appearance: grossly normal and appropriate Attitude: calm Activity / Motor Behavior: appropriate eye contact Speech: normal speech Mood & Affect: euthymic mood Thought Process: normal thought process Thought Content: normal thought content Attention / Concentration: attention grossly intact Debridement Note Debridement Note No debridement was completed: No debridement was completed today (The patient's wound is completely healed and epithelialized.) Post-Debridement Measurements and Additional Note: Post-Debridement Measurements/Treatment - Nurse 1 - General Ulcer Assessment Start: 10/31/21 09:22 Freq: Status: Active Protocol: SAM Activity Type Activity Date Activity User E-Sign Co-Sign Detail Recorded Client Recorded Date Recorded By Document 10/31/21 09:24 DL [id number] 10/31/21 09:34 DL Document 11/07/21 09:35 MW [id number] 11/07/21 09:38 MW Document 11/14/21 09:22 [facility] [id number] 11/14/21 09:31 BMF 10/31/21 11/07/21 11/14/21 09:24 09:35 09:22 - Today's Visit Information Type of service Follow-up Visit Follow-up Visit Follow-up Visit (Physician/REFRIGERATION SERVICE TECHNICIAN (Physician/REFRIGERATION SERVICE TECHNICIAN (Physician/REFRIGERATION SERVICE TECHNICIAN ) ) ) Arrival Mode Ambulatory Ambulatory Ambulatory Transfer Assistance None None None Accompanied by self Patient Identification Verified (Name & Yes Yes Yes ) Patient Requires Transmission-Based No No No Precautions Safety Precautions NA Height and Weight Body Mass Index (BMI) 33.5 33.5 33.5 BMI Classification Obese Obese Obese Vital Signs Temperature (97.8 F-99.1 F) 97.5 F L 96.8 F L 96.7 F L Temperature Source Temporal Temporal Temporal Pulse Rate (60-100) 69 74 78 Pulse Location Monitor Monitor Monitor Respiratory Rate (12-18) 20 H 16 16 Respiratory rate source Observation Observation Observation Oxygen Delivery Method Room Air Room Air Blood Pressure (90/60-120/80) 117/54 L 139/70 H 134/64 H Blood Pressure Mean 75 93 87 Source Monitor Monitor Monitor Position Sitting Sitting Blood Pressure Location Left Arm Left Arm History Since Last Visit- (Skip if this is Patient's initial visit) Have you changed medications since your No No No last visit? Any new allergies or adverse reactions No No No Had a fall/change in ADL's that may No No No increase risk of falls Signs or symptoms of abuse and/or No No No neglect since last visit Have you been in the hospital since your No No No last visit? Has dressing in place as prescribed Yes Yes Yes Has compression in place as prescribed Yes Yes No Has offloadiing in place as prescribed N/A N/A N/A Experienced any changes in pain level or No No No management Left Footwear Regular Shoe Regular Shoe Right Footwear Regular Shoe Regular Shoe Pain Scale: 0-10 Numeric Is Patient Pain Free? Yes Yes Yes WC - Nurse 1 - General Ulcer Measurement Start: 10/31/21 09:22 Freq: Status: Active Protocol: Activity Type Activity Date Activity User E-Sign Co-Sign Detail Recorded Client Recorded Date Recorded By Document 10/31/21 09:24 DL [id number] 10/31/21 09:34 DL Document 11/07/21 09:35 MW [id number] 11/07/21 09:38 MW Document 11/14/21 09:22 [facility] [id number] 11/14/21 09:31 BMF 10/31/21 11/07/21 11/14/21 09:24 09:35 09:22 Wound Center Nurse 1 #1 left villatoro -Combined with other wound No No -Current Size (cm) - Length 0.5 0.1 0.1 -Current Size (cm) - Width 0.5 0.1 0.1 -Current Size (cm) - Depth 0.1 0.1 0.1 -Total Square Cm 0.25 0.01 0.01 -Photo Taken No No -Epithelialization Medium 34-66% Large 67-100% -Tunneling No -Undermining/Tunneling No -Circular Undermining No -Exudate Amt Small None Present -Wound Margin Distinct, Flat & Intact Outline Attached -Granulation Amt Large (67-100%) Medium (34-66%) -Granulation Quality Red Charlo -Necrosis Amt Small (1-33%) Small (1-33%) -Necrotic Tissue Type Eschar Adherent Slough -Structure Exposed N/A N/A -Texture (Dimple-wound Skin Appearance) Scarring Assessed, Assessed Scarring -Moisture (Dimple-wound Skin Appearance) No Abnormality No Abnormality, Assessed,Dry/ Assessed Scaly -Color (Dimple-wound Skin Appearance) No Abnormality No Abnormality, Assessed Assessed -Temperature (Dimple-wound Skin No Abnormality No Abnormality No Abnormality Appearance) (Pt Warm) (Pt Warm) (Pt Warm) -Tenderness on Palpation (Dimple-wound No No No Skin Appearance) -Ulcer Cleansing Soap and Water Rinsed/ Soap and Water Irrigated with Saline -Foul Odor after Cleansing Yes, Due to No No Product Use -Anesthetic Used 5% Lidocaine 5% Lidocaine 5% Lidocaine Gel Gel Gel Lower Limb Edema Present Yes Yes Left Calf (cm) 40.5 40.2 41.2 Left Ankle (cm) 22 22.0 23.7 WC - Nurse 2 - General Ulcer CM Notes Start: 10/31/21 09:22 Freq: Status: Active Protocol: Activity Type Activity Date Activity User E-Sign Co-Sign Detail Recorded Client Recorded Date Recorded By Document 10/31/21 13:17 PL [id number] 10/31/21 13:18 PL Document 11/07/21 12:39 PL [id number] 11/07/21 12:41 PL 10/31/21 11/07/21 13:17 12:39 Wound Center Nurse 2 #1 left villatoro -Time 10:08 09:47 -Correct Patient Yes Yes -Correct Side, Site, Position Yes Yes -Correct Procedure Yes Yes -Procedure Performed Yes Yes -Type of Procedure Debridement Debridement -Clinical Debridement Subcutaneous Subcutaneous -Tissue Removed Subcutaneous Subcutaneous -Post Debridement (cm) - Length 0.5 0.3 -Post Debridement (cm) - Width 0.5 0.3 -Post Debridement (cm) - Depth 0.1 0.1 -Total Square (Post) (cm) 0.25 0.09 -Area of Debridement (cm) - Length 0.5 0.3 -Area of Debridement (cm) - Width 0.5 0.3 -Total Square (Area) (cm) 0.25 0.09 -Tunneling No No -Undermining/Tunneling No No -Circular Undermining No No -Wound/Ulcer Outcome Not Healed Not Healed -Ulcer Cleansing Rinsed/ Rinsed/ Irrigated with Irrigated with Saline Saline -Foul Odor after Cleansing No No -Bioengineered Tissue No No -Bleeding Controlled with Pressure Pressure -Treatment Response Procedure Procedure Tolerated Well Tolerated Well -Debridement - Subq, 1st 20sq cm Yes Yes Pain Scale: 0-10 Numeric Is Patient Pain Free? Yes WC - Nurse 3 - General Ulcer D/C NN Start: 10/31/21 09:22 Freq: Status: Active Protocol: Activity Type Activity Date Activity User E-Sign Co-Sign Detail Recorded Client Recorded Date Recorded By Document 10/31/21 10:23 [facility] [id number] 10/31/21 10:23 [facility] Document 11/07/21 10:02 MW [id number] 11/07/21 10:03 MW Document 11/14/21 09:50 DL [id number] 11/14/21 09:52 DL 10/31/21 11/07/21 11/14/21 10:23 10:02 09:50 Wound Care Nurse 3 #1 left villatoro -Ulcer Cleansing Rinsed/ Rinsed/ Rinsed/ Irrigated with Irrigated with Irrigated with Saline Saline Saline -Foul Odor after Cleansing No No No -Negative Pressure Wound Therapy N/A -Primary Dressing Applied Aquacel Extra Aquacel Extra -Primary Dressing Covered/Secured with Dry Gauze & Dry Gauze & Dry Gauze, Roll Gauze, Roll Gauze, Secured with Secured with Secured with Tape Tape Tape -Aquacel Extra 1 1 Left -Lotion applied to leg before No No compression wrap -Tubular Bandage Double Layer -Size of Tubigrip Used Size E -Size E ($) 2 -Stockings Yes -Other own double layer tubi applied Treatment Response Procedure Procedure Procedure Tolerated Well Tolerated Well Tolerated Well Pain Scale: 0-10 Numeric Is Patient Pain Free? Yes Yes Yes Teaching: Wound Center Dressing Your Wound -Person Taught Patient -Teaching Method Discussion, Demonstration -Response to teaching Verbalize understanding WC - Visit Discharge Discharge Condition Stable Stable Stable Ambulatory Status Ambulatory Ambulatory Ambulatory Transportation Private Auto Private Auto Private Auto Accompanied by self Medication Reconcilliation completed & No provided to patient/care provider Clinical Summary of Care Provided Yes Notes: healed/ discharged. Assessment/Plan Assessment/Plan (1) Traumatic open wound of left lower leg: CODE(S): S81.802A - Unspecified open wound, left lower leg, initial encounter QUALIFIERS: Encounter type: initial encounter Qualified Code(s): S81.802A - Unspecified open wound, left lower leg, initial encounter (2) Lower extremity edema: CODE(S): R60.0 - Localized edema (3) Swelling of lower extremity: CODE(S): M79.89 - Other specified soft tissue disorders (4) Peripheral vascular disease: CODE(S): I73.9 - Peripheral vascular disease, unspecified (5) Varicose veins with inflammation: CODE(S): I83.10 - Varicose veins of unspecified lower extremity with inflammation (6) Chronic venous insufficiency: CODE(S): I87.2 - Venous insufficiency (chronic) (peripheral) (7) History of tonsillectomy: CODE(S): Z90.89 - Acquired absence of other organs (8) History of bilateral cataract extraction: CODE(S): Z98.41 - Cataract extraction status, right eye; Z98.42 - Cataract extraction status, left eye (9) History of total bilateral knee replacement: CODE(S): Z96.653 - Presence of artificial knee joint, bilateral (10) Gout: CODE(S): M10.9 - Gout, unspecified (11) Osteoarthritis: CODE(S): M19.90 - Unspecified osteoarthritis, unspecified site (12) Hiatal hernia: CODE(S): K44.9 - Diaphragmatic hernia without obstruction or gangrene (13) GERD (gastroesophageal reflux disease): CODE(S): K21.9 - Gastro-esophageal reflux disease without esophagitis (14) Hyperlipidemia: CODE(S): E78.5 - Hyperlipidemia, unspecified (15) Hypertension: CODE(S): I10 - Essential (primary) hypertension (16) Polyarthropathy: CODE(S): M13.0 - Polyarthritis, unspecified (17) Pulmonary hypertension: CODE(S): I27.20 - Pulmonary hypertension, unspecified (18) History of mitral valve repair: CODE(S): Z98.890 - Other specified postprocedural states (19) Nonrheumatic mitral (valve) insufficiency: CODE(S): I34.0 - Nonrheumatic mitral (valve) insufficiency (20) Atherosclerotic heart disease of [place] coronary artery without angina pectoris: CODE(S): I25.10 - Atherosclerotic heart disease of [place] coronary artery without angina pectoris QUALIFIERS: [place] vs. transplanted heart: [place] heart Qualified Code(s): I25.10 - Atherosclerotic heart disease of [place] coronary artery without angina pectoris (21) Heart murmur: CODE(S): R01.1 - Cardiac murmur, unspecified (22) Acute diastolic CHF (congestive heart failure): CODE(S): I50.31 - Acute diastolic (congestive) heart failure PLAN: This is a 76-year-old female with multiple pre-existing medical problems. Weeks prior to her presentation, the patient sustained a traumatic wound to the left pretibial area. Since that time, she had been using antibiotic ointment topically as well as antibacterial spray. As result of implementing conservative treatment measures, the patient's left lower extremity traumatic wound is now completely healed and epithelialized. The patient has obtained graduated compression stockings of 20 to 30 mmHg compression, which she is to continue wearing on a daily basis. She is also to continue conservative treatment measures to minimize swelling and edema in her lower extremities. She is to be discharged, and will henceforth follow-up on an as-needed basis. Total time: 24 minutes
== END 2021-11-14 10:11 | disposition home or self-care (01) ==
LOC: WC 09:30
PROVIDERS: PCP Internal Medicine; Referring Provider Surgery; Visit Provider Surgery
DX: S81.832A Puncture wound without foreign body, left lower leg, initial encounter (principal); I11.0 Hypertensive heart disease with heart failure; I50.31 Acute diastolic (congestive) heart failure; I27.20 Pulmonary hypertension, unspecified; I73.9 Peripheral vascular disease, unspecified; E78.5 Hyperlipidemia, unspecified; M10.9 Gout, unspecified; K21.9 Gastro-esophageal reflux disease without esophagitis; I25.10 Atherosclerotic heart disease of native coronary artery without angina pectoris; I83.90 Asymptomatic varicose veins of unspecified lower extremity; K44.9 Diaphragmatic hernia without obstruction or gangrene; Z87.891 Personal history of nicotine dependence; I87.2 Venous insufficiency (chronic) (peripheral); M19.90 Unspecified osteoarthritis, unspecified site; Z79.1 Long term (current) use of non-steroidal anti-inflammatories (NSAID); Z79.899 Other long term (current) drug therapy; Z79.82 Long term (current) use of aspirin; W22.09XA Striking against other stationary object, initial encounter
CPT/HCPCS: 11042; 99213; G0463

== ENCOUNTER 2023-05-27 07:31 | Observation (INO) | payer MEDICARE, SELFPAY ==
[2023-05-27] VITALS (10 sets, daily range): BP systolic 104–154; BP diastolic 65–98; PULSE 71–88; RESP 14–19; TEMP 36.1–36.7; O2SAT 94–100; BMI 35.4; BMI 34.2
--- NOTE | 2023-05-27 07:45 | EKG12_ITS ---
Test Reason : GEN ILLNESS Blood Pressure : / mmHG Vent. Rate : 069 BPM Atrial Rate : 069 BPM P-R Int : 174 ms QRS Dur : 102 ms QT Int : 416 ms P-R-T Axes : 040 -19 035 degrees QTc Int : 445 ms Sinus rhythm with occasional Premature ventricular complexes Minimal voltage criteria for LVH, may be normal variant ( [place] product ) Borderline ECG Confirmed by CORINA SUMNER, CHAZ ([id number]), design editor MARCEL DOWNEY ([id number]) on 05/28/2023 10:59:36 AM Referred By: Confirmed By:CHAZ ARRIAGA MD
--- NOTE | 2023-05-27 07:45 | EX.ED.DYSGE1 ---
HPI History of Present Illness Chief Complaint: General Illness Detail of Chief Complaint: Generalized weakness, dizziness Informant: patient Narrative Narrative: Patient presents to the emergency department via EMS from home. Patient states that she woke up this morning and felt lightheaded with standing. Patient went and had her coffee and started feeling more lightheaded. Patient states that her head felt tingly and she felt somewhat short of breath. She felt shaky and she called EMS. She denies chest pain but thinks maybe her heart was racing. Patient states she is really not felt well since 4 days ago. Patient has been taking her water pill but does not feel like she is urinating as much as she would expect. She denies dysuria or urgency or frequency. She denies fever. Denies cough. She has not had any chest pain or exertional symptoms. She denies recent travel or surgery. She does have remote history of vertigo but states that she has not had attack in quite a while. She does take medicine for anxiety. [facility] Medical History Atherosclerotic heart disease of [place] coronary artery without angina pectoris Bilateral pleural effusion Chronic venous insufficiency Congestive heart failure GERD (gastroesophageal reflux disease) Gout Hiatal hernia History of pleural effusion Hyperlipidemia Hypertension Lower extremity edema Nonrheumatic mitral (valve) insufficiency Osteoarthritis Peripheral vascular disease Polyarthropathy Pulmonary hypertension Swelling of lower extremity Traumatic open wound of left lower leg Varicose veins with inflammation Home Medications loratadine 10 mg tablet 10 mg PO DAILY PRN Allergies 08/21/19 [History Last Taken Unknown] allopurinol 100 mg tablet 100 mg PO DAILY 04/27/20 [History Last Taken 05/26/23] acetaminophen 500 mg tablet 500 mg PO Q6H PRN FEVER, PAIN 02/17/21 [History Last Taken 05/26/23] calcium carbonate 500 mg-vitamin D3 3.125 mcg (125 unit) tablet 1 tablet PO DAILY 02/17/21 [History Last Taken 05/26/23] multivitamin 1 tablet PO DAILY 02/17/21 [History Last Taken 05/26/23] buspirone 10 mg tablet 10 mg PO BID anxiety 06/12/22 [History Last Taken 05/26/23] aspirin 81 mg tablet,delayed release (Adult Aspirin Regimen) 81 mg PO QODAY 12/07/22 [History Last Taken 05/27/23] furosemide 40 mg tablet 40 mg PO DAILY #90 tabs 12/07/22 [Rx Last Taken 05/26/23] metoprolol tartrate 25 mg tablet 25 mg PO BID #180 tabs 12/07/22 [Rx Last Taken 05/26/23] naproxen 500 mg tablet (Naprosyn) 500 mg PO BID 12/07/22 [History Last Taken 05/26/23] potassium chloride 20 mEq tablet,extended release(part/cryst) 20 meq PO DAILY #90 tabs 12/07/22 [Rx Last Taken 05/26/23] Allergy/AdvReac Type Severity Reaction Status Date / Time codeine Allergy Unknown Rash Verified 05/27/23 07:32 Seasonal Allergies: Uncoded Allergy Other Verified 05/27/23 07:32 tramadol Allergy Itching Verified 05/27/23 07:32 atorvastatin [From Lipitor] AdvReac hives and Verified 05/27/23 07:32 itching Family History Mother Heart disease Grandmother CVA (cerebral vascular accident) Surgical History History of bilateral cataract extraction History of bilateral cataract extraction History of left heart catheterization (LHC) History of left knee replacement History of mitral valve repair (07/08/17) History of right knee joint replacement History of tonsillectomy History of tonsillectomy History of total bilateral knee replacement History of tubal ligation Social History Smoking Status: Former smoker alcohol intake: current alcohol intake frequency: a few times a week Alcohol type: wine substance use type: does not use diet: low salt caffeine: Yes Type: coffee Number of servings: 3 what type of physical activity do you participate in: other details: PT frequency: 3-4 times per week duration: 30-45 minutes/day seatbelt use: always do you feel safe at home: Yes ROS ROS ED Review of Systems ROS Unobtainable: other Constitutional Constitutional ED: Reports lethargy; Denies chills, fever(s), sweats or weight loss Eyes Eyes: Denies blurry vision, change in vision or diplopia ENT ENT ED: Denies rhinorrhea or sore throat Cardiovascular Cardiovascular: Reports racing heartbeat; Denies chest pain or orthopnea Respiratory/Chest Respiratory/Chest: Reports dyspnea; Denies cough, dyspnea on exertion, orthopnea or sputum Gastrointestinal Gastrointestinal: Denies abdominal pain, diarrhea, nausea or vomiting Genitourinary Genitourinary ED: Denies dysuria, hematuria or urinary frequency Musculoskeletal Musculoskeletal: Denies arthralgias, back pain, myalgias or neck pain Integumentary Denies abscess, Abrasions or rash Neurologic Neurologic: Reports weakness and other Details: Dizziness\lightheadedness ; Denies headache(s) Psychiatric Psychiatric: Denies anxiety, depression or suicidal thoughts Endocrine Endocrinology: Denies polydipsia, polyphagia or polyuria Hematologic/Lymphatic Hematologic/Lymphatic: Denies easy bleeding, easy bruising or lymphadenopathy Allergic/Immunologic Allergic/Immunologic ED: Denies mouth swelling, tongue swelling or urticaria EXAM Physical Exam Const Vital Signs: 05/27/23 07:33 05/27/23 07:35 05/27/23 08:21 Temperature 97 F L Temperature Source Temporal Pulse Rate 83 Pulse Rate [Lying] 73 Pulse Rate [Sitting (for 1 minute prior to obtaining)] 78 Pulse Rate [Standing (for 1 minute prior to obtaining)] 82 Respiratory Rate 14 Respiratory Effort Normal Non-Labored Respiratory Pattern Normal Blood Pressure 154/88 H Blood Pressure [Lying] 122/77 H Blood Pressure [Sitting (for 1 minute prior to obtaining)] 139/75 H Blood Pressure [Standing (for 1 minute prior to obtaining)] 137/74 H Blood Pressure Mean 110 Blood Pressure Mean [Lying] 92 Blood Pressure Mean [Sitting (for 1 minute prior to obtaining)] 96 Blood Pressure Mean [Standing (for 1 minute prior to obtaining)] 95 Pulse Ox 99 Oxygen Delivery Method Room Air 05/27/23 09:30 Temperature Temperature Source Pulse Rate 71 Pulse Rate [Lying] Pulse Rate [Sitting (for 1 minute prior to obtaining)] Pulse Rate [Standing (for 1 minute prior to obtaining)] Respiratory Rate 19 H Respiratory Effort Respiratory Pattern Blood Pressure 143/65 H Blood Pressure [Lying] Blood Pressure [Sitting (for 1 minute prior to obtaining)] Blood Pressure [Standing (for 1 minute prior to obtaining)] Blood Pressure Mean 91 Blood Pressure Mean [Lying] Blood Pressure Mean [Sitting (for 1 minute prior to obtaining)] Blood Pressure Mean [Standing (for 1 minute prior to obtaining)] Pulse Ox 94 Oxygen Delivery Method Room Air Positive well nourished and well developed General Appearance ED: well developed and NAD HEENT Reports TM's clear and moist mucous membranes normocephalic and atraumatic; Negative for trauma or tenderness Tympanic Membrane ED: Yes TM's clear Eyes PERRL and EOMs intact bilaterally General Eye ED: Negative for pale conjunctiva or scleral icterus Neck no lymphadenopathy, supple and no JVD General: Negative for tenderness Chest Wall inspection of chest normal and palpation of chest normal Chest: Negative for tenderness Resp normal respiratory effort and clear to auscultation bilaterally Effort and Inspection: Negative for respiratory distress or pain with movement Auscultation: Negative for rhonchi, wheezes or diminished lung sounds Cardio regular rate, regular rhythm, S1 normal heart sound, S2 normal heart sound and no murmurs Peripheral Pulses: pulses 2+ throughout GI normal to inspection, nondistended, normoactive bowel sounds, soft to palpation, non-tender, non-distended and no masses Back/Spine no CVA tenderness and no thoracic nor lumbar tenderness Extremity normal to inspection General Extremety ED: Negative for edema General Extremity: Negative for edema Neuro oriented x3, CN's II-XII intact bilaterally, no sensory deficits noted and gait normal Sensorium / Orientation: awake, alert, oriented to person, oriented to place and oriented to time Motor Exam: strength 5/5 throughout and strength abnormal Psych mental status grossly normal Skin no rashes or lesions noted and no wounds MDM MDM MDM Narrative Medical decision making narrative: Patient presents with vague complaints of generalized weakness and lightheadedness as well as feeling shaky and sensation of heart racing and some dyspnea. In the differential would be dehydration, orthostatic hypotension, renal failure, cardiac etiology versus infectious etiology. IV line established. Orthostatic vital signs will be ordered. She will be given normal saline. EKG and labs ordered. EKG on arrival showed a sinus rhythm. With no significant ST changes. CBC with differential unremarkable. Chemistries unremarkable. Troponin was normal at 6. Urinalysis normal. Chest x-ray unremarkable. Orthostatic vital signs were negative. Patient did feel improved and the paresthesias in her hands improved. She did get up to go to the bathroom but felt like she needed to hold onto the sewell and still felt off balance. Hallpike maneuver was negative for nystagmus although she does have prior history of vertigo. Patient also has had some episodes of dizziness for the last 4 days she has been feeling somewhat off balance. We will obtain a CT scan of her brain to evaluate for possible evidence of posterior stroke. CT scan of the brain without contrast was unremarkable. Patient continues to complain of feeling off balance. Case will be discussed with hospitalist to evaluate patient for admission. Lab Data Attestation: I reviewed the patient's lab results. Labs: Laboratory Results - last 24 hr 05/27/23 05/27/23 07:25 08:30 WBC 5.1 RBC 4.39 Hgb 13.4 Hct 41.1 MCV 93.6 MCH 30.5 MCHC 32.6 RDW Std Deviation 45.6 H RDW Coeff of Carl 13.2 Plt Count 180 MPV 11.0 Immature Gran % (Auto) 0.200 Neut % (Auto) 47.6 Lymph % (Auto) 34.7 [place] % (Auto) 13.5 H Eos % (Auto) 3.4 Baso % (Auto) 0.6 Absolute Neuts (auto) 2.4 Absolute Lymphs (auto) 1.75 Nucleated RBC % 0 Sodium 139 Potassium 3.9 Chloride 107 Carbon Dioxide 25.0 Anion Gap 7 BUN 30 H Creatinine 1.03 H Estim Creat Clear Calc 42.82 Est GFR (MDRD) Af Amer 67 Est GFR (MDRD) Non-Af 55 L BUN/Creatinine Ratio 29.1 H Glucose 143 H Calcium 9.4 Troponin I High Sens 6 Urine Color Yellow Urine Clarity Clear Urine pH 6.5 Ur Specific [place] 1.015 Urine Protein Negative Urine Glucose (UA) Normal Urine Ketones Negative Urine Occult Blood Negative Urine Nitrite Negative Urine Bilirubin Negative Urine Urobilinogen Normal Ur Leukocyte Esterase 25 H Urine RBC 0 SEEN Urine WBC 0-5 SEEN Ur Squamous Epith Cells 0-5 SEEN Urine Bacteria 0 SEEN Urine Mucus 0 SEEN Radiography Diagnostic Testing: Clinical Impression(s) from Imaging Studies Brain CT 05/27/23 09:50 IMPRESSION: Normal unenhanced CT scan of the brain. Electronically Signed: Tyrel Phelps MD at 10:26 EDT , 1 view chest x-ray obtained interpreted by myself no evidence of infiltrate or pneumothorax or acute disease process. EKG Initial EKG: Attestation: I personally reviewed and interpreted this EKG as follows: Comments: Sinus rhythm with a rate of 69 bpm with no acute ST segment changes noted Discharge Plan Dx/Rx/DC Orders Clinical Impression: Dizziness, Generalized weakness, History of hypertension Disposition Disposition: Acute Care Hospital [facility]
[2023-05-27] MEDS: 0.9% Normal Saline 1,000 ML 150 ML IV (07:51)
[2023-05-27 08:06] LABS: Absolute Lymphocyte Count 1.75 X10^3/uL (0.83-4.51); Absolute Neutrophil Count 2.4 X10^3/uL (2.0-7.7); Basophil# 0.03 X10^3/uL; Basophil% 0.6 % (0-1); Eosinophil# 0.17 X10^3/uL; Eosinophils% 3.4 % (0-5); Hematocrit 41.1 % (37-47); Hemoglobin 13.4 g/dL (12.0-15.0); Lymphocyte # 1.75 X10^3/ul (0.83-4.51); Lymphocyte % 34.7 % (19-41); Mean Corp Hgb Conc 32.6 g/dL (32-36); Mean Corpuscular Hgb 30.5 pg (27.0-32.0); Mean Corpuscular Volume 93.6 fL (81-99); Monocyte# 0.68 X10^3/uL; Monocyte% 13.5 % (0-10); NRBC Flagged by Analyzer 0 % (0-5); Neutrophil # 2.41 X10^3/uL (2.7-7.7); Neutrophil % 47.6 % (47-70); Platelet Count 180 K/mm3 (150-450); RBC Distribution Width CV 13.2 % (11.6-14.6); RBC Distribution Width SD 45.6 fl (35.1-43.9); Red Blood Count 4.39 M/mm3 (4.2-5.4); White Blood Count 5.1 K/mm3 (4.4-11.0)
--- NOTE | 2023-05-27 08:11 | RAD_ITS ---
STUDY: X-RAY CHEST REASON FOR EXAM: Female, 77 years old. Dyspnea TECHNIQUE: Single AP portable view of the chest. COMPARISON: Comparison is made with prior study dated May 29, 2017. FINDINGS: EKG electrodes are seen. The lungs are clear and expanded. There is no demonstrated pleural abnormality. Sternal cerclage wires are present from a prior sternotomy. A clip is seen in the region of the left atrial appendage. Normal mediastinum and val. Normal visualized pulmonary arteries. Normal visualized aortic arch and descending thoracic aorta. Normal visualized thoracic spine. There is degenerative osteoarthritis of the bilateral shoulders. Large hiatal hernia. RAD/Chest 1 View (Portable) IMPRESSION: Hiatal hernia. The lungs are clear. Electronically Signed: Tyrel Phelps MD at 8:32 EDT ,
[2023-05-27 08:22] LABS: Anion Gap 7 (5-15); BUN 30 mg/dL (7-18); BUN/Creat Ratio 29.1 RATIO (10-20); Calcium,Total 9.4 mg/dL (8.5-10.1); Chloride 107 mmol/L (98-107); Creatinine, Serum 1.03 mg/dL (0.55-1.02); EST Glomerular Filtration Rate 55 mL/min (>60); Est Glom Filt Rate - Afr Amer 67 mL/min (>60); Estimated Creatinine Clearance 42.82 ml/min; Glucose 143 mg/dL (74-106); Potassium 3.9 mmol/L (3.5-5.1); Sodium Level 139 mmol/L (136-145); Troponin-I HS 6 pg/mL (3.0-54.0)
[2023-05-27 08:39] LABS: Bacteria 0 SEEN /hpf (None Seen); Mucous, Urine 0 SEEN /hpf (<or=2+); Red Blood Cells-Urine 0 SEEN /hpf (0-5)
[2023-05-27 08:42] LABS: Color, Urine Yellow (Yellow); Glucose, Dipstick Normal (Normal); Ketone-Dipstick Negative (Negative); Leukocyte Esterase-Dipstick 25 /ul (Negative); Nitrite-Dipstick Negative (Negative); Occult Blood-Urine Negative /ul (Negative); Protein-Dipstick Negative (Negative); Specific Gravity, Urine 1.015 (1.002-1.030); Urine Bilirubin Dipstick Negative (Negative); Urine Clarity Clear (Clear); Urine Urobilinogen Normal (Normal); Urine pH 6.5 (5.0 - 8.0)
[2023-05-27 09:08] LABS: Squamous Epithelial Cells - UA 0-5 SEEN /hpf (5-10); White Blood Cells 0-5 SEEN /hpf (0-5)
--- NOTE | 2023-05-27 09:50 | CT_ITS ---
STUDY: CT BRAIN WITHOUT CONTRAST REASON FOR EXAM: Female, 77 years old. diss equilibrium RADIATION DOSAGE (If Supplied By Facility): CTDIvol = ( 44.99 ) mGy, DLP = ( 812.98 ) mGycm TECHNIQUE: Transaxial CT imaging of the brain was performed without administration of intravenous contrast material. Individualized dose optimization techniques were used for this CT. COMPARISON: No relevant priors. FINDINGS: Normal soft tissue structures. Normal calvarium. Normal size ventricles and extra-axial spaces for the patient''s age. Normal white matter tracts of the cerebral hemispheres. Normal basal ganglia and thalami. Normal brainstem. Normal cerebellum. There is no intracranial hemorrhage. There are no findings of an acute ischemic infarction. Normal visualized paranasal sinuses. CT/Brain/Head without Contrast IMPRESSION: Normal unenhanced CT scan of the brain. Electronically Signed: Tyrel Phelps MD at 10:26 EDT ,
--- NOTE | 2023-05-27 10:51 | NURSING ---
DR CARLEE LEARY
--- NOTE | 2023-05-27 13:45 | PCM.HP.STD ---
HPI - General General Date of Admission: 05/27/23 Date of Service: 05/27/23 Chief Complaint: Dizziness. HPI Narrative DEAN HANNA, is a 77 F who presents with dizziness. Symptoms began last Saturday. Has progressively gotten worse. Worse this morning. Patient states that the dizziness gets worse when she moves and changes position. Has a felt worse this morning she sought attention in the emergency room. She also experienced paresthesias down her lower extremities. Patient has had some 6 other episodes but far less severe than this. Patient had a CAT scan emergency room that showed no acute process. Given her ongoing symptoms, the hospital service was contacted for admission. [facility] Medical History Atherosclerotic heart disease of [place] coronary artery without angina pectoris Bilateral pleural effusion Chronic venous insufficiency Congestive heart failure GERD (gastroesophageal reflux disease) Gout Hiatal hernia History of pleural effusion Hyperlipidemia Hypertension Lower extremity edema Nonrheumatic mitral (valve) insufficiency Osteoarthritis Peripheral vascular disease Polyarthropathy Pulmonary hypertension Swelling of lower extremity Traumatic open wound of left lower leg Varicose veins with inflammation Home Medications loratadine 10 mg tablet 10 mg PO DAILY PRN Allergies 08/21/19 [History Last Taken Unknown] allopurinol 100 mg tablet 100 mg PO DAILY 04/27/20 [History Last Taken 05/26/23] acetaminophen 500 mg tablet 500 mg PO Q6H PRN FEVER, PAIN 02/17/21 [History Last Taken 05/26/23] calcium carbonate 500 mg-vitamin D3 3.125 mcg (125 unit) tablet 1 tablet PO DAILY 02/17/21 [History Last Taken 05/26/23] multivitamin 1 tablet PO DAILY 02/17/21 [History Last Taken 05/26/23] buspirone 10 mg tablet 10 mg PO BID anxiety 06/12/22 [History Last Taken 05/26/23] aspirin 81 mg tablet,delayed release (Adult Aspirin Regimen) 81 mg PO QODAY 12/07/22 [History Last Taken 05/27/23] furosemide 40 mg tablet 40 mg PO DAILY #90 tabs 12/07/22 [Rx Last Taken 05/26/23] metoprolol tartrate 25 mg tablet 25 mg PO BID #180 tabs 12/07/22 [Rx Last Taken 05/26/23] naproxen 500 mg tablet (Naprosyn) 500 mg PO BID 12/07/22 [History Last Taken 05/26/23] potassium chloride 20 mEq tablet,extended release(part/cryst) 20 meq PO DAILY #90 tabs 12/07/22 [Rx Last Taken 05/26/23] Allergy/AdvReac Type Severity Reaction Status Date / Time codeine Allergy Unknown Rash Verified 05/27/23 07:32 Seasonal Allergies: Uncoded Allergy Other Verified 05/27/23 07:32 tramadol Allergy Itching Verified 05/27/23 07:32 atorvastatin [From Lipitor] AdvReac hives and Verified 05/27/23 07:32 itching Family History Mother Heart disease Grandmother CVA (cerebral vascular accident) Surgical History History of bilateral cataract extraction History of bilateral cataract extraction History of left heart catheterization (LHC) History of left knee replacement History of mitral valve repair (07/08/17) History of right knee joint replacement History of tonsillectomy History of tonsillectomy History of total bilateral knee replacement History of tubal ligation Hx of CABG Social History Smoking Status: Former smoker alcohol intake: current alcohol intake frequency: a few times a week Alcohol type: wine substance use type: does not use diet: low salt caffeine: Yes Type: coffee Number of servings: 3 what type of physical activity do you participate in: other details: PT frequency: 3-4 times per week duration: 30-45 minutes/day seatbelt use: always do you feel safe at home: Yes RAABELLA Horton Had some nausea. All review of systems were negative except as mentioned above in the history of present illness and the other review of systems. Vital Signs Vital Signs Vital Signs: 05/27/23 07:33 05/27/23 07:35 05/27/23 08:21 Temperature 36.1 C L Temperature Source Temporal Pulse Rate 83 Pulse Rate [Lying] 73 Pulse Rate [Sitting (for 1 minute prior to obtaining)] 78 Pulse Rate [Standing (for 1 minute prior to obtaining)] 82 Respiratory Rate 14 Respiratory Effort Normal Non-Labored Respiratory Pattern Normal Blood Pressure 154/88 H Blood Pressure [Lying] 122/77 H Blood Pressure [Sitting (for 1 minute prior to obtaining)] 139/75 H Blood Pressure [Standing (for 1 minute prior to obtaining)] 137/74 H Blood Pressure Mean 110 Blood Pressure Mean [Lying] 92 Blood Pressure Mean [Sitting (for 1 minute prior to obtaining)] 96 Blood Pressure Mean [Standing (for 1 minute prior to obtaining)] 95 Blood Pressure Source Blood Pressure Position Blood Pressure Location Pulse Ox 99 Oxygen Delivery Method Room Air 05/27/23 09:30 05/27/23 11:34 05/27/23 11:50 Temperature 36.1 C L 36.5 C L Temperature Source Temporal Oral Pulse Rate 71 76 74 Pulse Rate [Lying] Pulse Rate [Sitting (for 1 minute prior to obtaining)] Pulse Rate [Standing (for 1 minute prior to obtaining)] Respiratory Rate 19 H 18 16 Respiratory Effort Respiratory Pattern Blood Pressure 143/65 H 137/74 H 114/98 H Blood Pressure [Lying] Blood Pressure [Sitting (for 1 minute prior to obtaining)] Blood Pressure [Standing (for 1 minute prior to obtaining)] Blood Pressure Mean 91 95 103 Blood Pressure Mean [Lying] Blood Pressure Mean [Sitting (for 1 minute prior to obtaining)] Blood Pressure Mean [Standing (for 1 minute prior to obtaining)] Blood Pressure Source Monitor Blood Pressure Position Semi-Fowlers Blood Pressure Location Right Arm Pulse Ox 94 94 100 Oxygen Delivery Method Room Air Room Air Room Air Weight Weight: 96.343 kg Body Mass Index (BMI) 34.2 Physical Exam Const alert and no apparent distress HEENT normocephalic, head/scalp atraumatic, hearing grossly normal bilaterally and moist oral mucous membranes Eyes PERRL Neck no lymphadenopathy Resp normal respiratory effort, no retractions, no use of accessory muscles and clear to auscultation bilaterally Cardio regular rate, regular rhythm, S1 normal heart sound and S2 normal heart sound GI normal to inspection, nondistended, normoactive bowel sounds, soft to palpation, non-tender and non-distended Extremity normal to inspection and full ROM Neuro oriented x3, CN's II-XII intact bilaterally, moves all extremities and no focal motor deficits Sensorium / Orientation: awake and alert Results Lab / Micro Data Attestation: I reviewed the patient's lab results. 05/27/23 07:25 05/27/23 07:25 Labs: Laboratory Results - last 24 hr 05/27/23 07:25: WBC 5.1, RBC 4.39, Hgb 13.4, Hct 41.1, MCV 93.6, MCH 30.5, MCHC 32.6, RDW Std Deviation 45.6 H, RDW Coeff of Carl 13.2, Plt Count 180, MPV 11.0, Immature Gran % (Auto) 0.200, Neut % (Auto) 47.6, Lymph % (Auto) 34.7, [place] % (Auto) 13.5 H, Eos % (Auto) 3.4, Baso % (Auto) 0.6, Absolute Neuts (auto) 2.4, Absolute Lymphs (auto) 1.75, Nucleated RBC % 0, Sodium 139, Potassium 3.9, Chloride 107, Carbon Dioxide 25.0, Anion Gap 7, BUN 30 H, Creatinine 1.03 H, Estim Creat Clear Calc 42.82, Est GFR (MDRD) Af Amer 67, Est GFR (MDRD) Non-Af 55 L, BUN/Creatinine Ratio 29.1 H, Glucose 143 H, Calcium 9.4, Troponin I High Sens 6 05/27/23 08:30: Urine Color Yellow, Urine Clarity Clear, Urine pH 6.5, Ur Specific [place] 1.015, Urine Protein Negative, Urine Glucose (UA) Normal, Urine Ketones Negative, Urine Occult Blood Negative, Urine Nitrite Negative, Urine Bilirubin Negative, Urine Urobilinogen Normal, Ur Leukocyte Esterase 25 H, Urine RBC 0 SEEN, Urine WBC 0-5 SEEN, Ur Squamous Epith Cells 0-5 SEEN, Urine Bacteria 0 SEEN, Urine Mucus 0 SEEN Radiology Impression Chest X-Ray 05/27/23 08:11 IMPRESSION: Hiatal hernia. The lungs are clear. Electronically Signed: Tyrel Phelps MD at 8:32 EDT , Brain CT 05/27/23 09:50 IMPRESSION: Normal unenhanced CT scan of the brain. Electronically Signed: Tyrel Phelps MD at 10:26 EDT , Assessment & Plan Assessment/Plan (1) Dizziness: PLAN: BPPV versus stroke. CVA w/u w MRI brain, MRA head and neck, echo continue ASA PT OT PLAN: Plan Chronic conditions: GERD: gout: allopurinol HTN VTE prophylaxis: not indicated given current observation status. Charges/Coding Visit Charges Inpatient E&M: 87340 Init Hosp L3
--- NOTE | 2023-05-27 13:53 | ECHOD_ITS ---
Reason For Study: TIA/CVA Procedure This was a 2D Doppler, Color Flow transthoracic echocardiogram. Exam performed portable in patient room. Left Ventricle Normal LV size. The estimated ejection fraction is 55 %. Unable to assess diastolic dysfunction. No regional wall motion abnormalities noted. Right Ventricle Normal RV size. Normal systolic function. Atria The left atrium is mildly enlarged. Normal right atrium. No doppler evidence for ASD. Bubble contrast study negative for right to left interatrial shunt. Mitral Valve There is moderate to severe mitral annular calcification. There is no mitral valve stenosis. Trivial mitral valve insufficiency. Tricuspid Valve There is no tricuspid stenosis. Trivial tricuspid valve insufficiency. Pulmonary artery systolic pressure is 45-50 mmHg. Aortic Valve Trisinus/trileaflet aortic valve. There is no aortic stenosis. No aortic valve insufficiency. Pulmonic Valve There is no pulmonic valvular stenosis. No pulmonic valve insufficiency. Great Vessels Normal aortic root. Pericardium/Pleural No pericardial effusion. Medication Performed a rapid injection of agitated mix of 9 cc saline and 1cc air to assess for atrial septal defect. MMode/2D Measurements & Calculations LVIDd: 3.4 cm IVSd: 0.72 cm Ao root diam: 2.7 cm LVIDs: 2.2 cm LVPWd: 1.5 cm FS: 36.5 % LAV(MOD-sp4): 55.2 ml LVAd ap4: 23.6 cm2 SV(MOD-sp4): 43.6 ml LVLd ap4: 6.8 cm EDV(MOD-sp4): 66.9 ml EDV(sp4-el): 69.3 ml LVAs ap4: 12.5 cm2 LVLs ap4: 5.6 cm ESV(MOD-sp4): 23.3 ml ESV(sp4-el): 23.6 ml EF(MOD-sp4): 65.1 % EF(sp4-el): 65.9 % SV(sp4-el): 45.7 ml LA A4 area: 18.3 cm2 LA dimension(2D): 4.6 cm RA A4 area: 13.7 cm2 Time Measurements MV dec time: 0.18 sec Doppler Measurements & Calculations MV E max sander: 109.9 cm/sec Lat Peak E' Sander: 10.2 cm/sec Med Peak E' Sander: 4.2 cm/sec MV A max sander: 145.0 cm/sec E/E' lat: 10.8 E/E' med: 26.2 MV E/A: 0.76 MV V2 max: 159.3 cm/sec MV dec slope: 624.5 cm/sec2 Ao V2 max: 122.5 cm/sec MV max P.2 mmHg Ao max P.0 mmHg MV V2 mean: 98.4 cm/sec Ao V2 mean: 81.0 cm/sec MV mean P.5 mmHg Ao mean P.1 mmHg MV V2 VTI: 40.9 cm Ao V2 VTI: 23.2 cm AV (velocity ratio): 1.1 LV V1 max: 110.6 cm/sec PA V2 max: 84.0 cm/sec TR max sander: 323.2 cm/sec LV V1 max P.9 mmHg PA V2 mean: 49.6 cm/sec TR max P.8 mmHg LV V1 mean P.5 mmHg LV V1 mean: 74.0 cm/sec LV V1 VTI: 26.0 cm ECHO/Echo Complete Interpretation Summary The estimated ejection fraction is 55 %. Unable to assess diastolic dysfunction. The left atrium is mildly enlarged. Trivial mitral valve insufficiency. Ordering Physician: Yaniv Funez Referring Physician: Tabatha Solano M.D. Performed By: Klarissa Mcgee RCS
--- NOTE | 2023-05-27 13:53 | MRI_ITS ---
STUDY: MRI BRAIN WITHOUT CONTRAST REASON FOR EXAM: Female, 77 years old. dizziness TECHNIQUE: Standardized multiplanar fat and water weighted pulse sequences were obtained. MRI examination brain fusion protocol including multiplanar multiecho noncontrast imaging. Contrast: No contrast administered. COMPARISON: Prior study dated: 05/27/[address] HEMISPHERES, CEREBELLUM AND BRAINSTEM: 1. The cerebral parenchyma, ventricular system, subarachnoid spaces have normal configuration and density. There is a normal gyral pattern. There is normal alatorre/white differentiation. No midline shift.. 2. Mild involutional changes, scattered chronic microvascular deep white matter disease. Mildly prominent perivascular spaces within the head of the caudate on the LEFT. 3. No areas of fluid restriction or acute ischemic change. No areas of hemosiderin deposition or intracranial hemorrhage. 4. No intraparenchymal mass, hemorrhage, or acute territorial infarct. 5. The cerebellum, brainstem, basilar and suprasellar cisterns have normal appearance. No Chiari malformation. PITUITARY: Infundibulum and pituitary have normal configuration. Midline structures appear normal. CSF SPACES: Appropriate for age. No hydrocephalus. Basal cisterns are patent. VESSELS: 1. There are normal flow voids noted in the great vessels at the skull base ORBITS AND PARANASAL SINUSES: 1. Both globes, extraocular muscles, optic nerves and retrobulbar fat appear unremarkable. Postoperative changes of prior bilateral cataract surgery. 2. Paranasal sinuses are clear. BONY ELEMENTS: Bony elements of the cranial vault, facial skeleton and skull base have normal appearance. SCALP AND SOFT TISSUES: Normal appearance of the soft tissues of the scalp and the visualized face OTHER: Small focal nodule noted within the superficial lobe of the RIGHT parotid, measuring approximately 8 x 7 mm which is hyperintense on diffusion imaging and hyperintense on T2 and FLAIR imaging. MRI/Brain without Contrast IMPRESSION: 1. Mild involutional changes, chronic microvascular deep white matter changes without mass, hemorrhage, or acute territorial infarct. 2. Prominent dilated perivascular spaces in the LEFT caudate. 3. Incidental note of a nodule within the superficial lobe of the RIGHT parotid, a pleomorphic adenoma is a consideration. Consider short-term follow-up which could include nonemergent CT of the face with contrast. Electronically Signed: Fransisco Hawk MD at 21:12 EDT ,
[2023-05-27 14:33] LABS: Troponin-I HS 11 pg/mL (3.0-54.0)
--- NOTE | 2023-05-27 15:20 | CHAPLAIN ---
Type of Pastoral Visit _x__ Initial Visit ___ Follow-up Visit ___ On-call Visit ___ General Patient Visit ___ Spiritual Assessment ___ Family Conference ___ Bereavement ___ Rapid Response ___ Code Blue ___ Other (describe below) Pastoral Care Referral From _x__ Patient ___ Family ___ Nurse ___ Physician ___ Boatbuilder Apprentice Wood ___ Button Sewer ___ Other (describe below) Sacrament/Intervention _x__ Active listening ___ Anointing ___ Voodoo ___ Bereavement ___ Communion _x__ Leonie exploration ___ ___ Life review _x__ Prayer ___ Reconciliation ___ Sacrament of Sick ___ Supportive presence ___ Wedding ___ Other (describe below) Pastoral Comments patient states that she is feeling better but has had several tests and will continue in testing this afternoon; pt admits to some anxiety about an MRI to be done and welcomes prayers; pt requests that her sabianist be notified of her admission and that was done; son is with patient and another son will be joining them soon; time to listen and giving calm presence
[2023-05-27] MEDS: Metoprolol Tartrate 25 MG Tablet PO (22:16)
[2023-05-27] MEDS: busPIRone 5 MG Tablet 10 MG PO (22:16)
[2023-05-27] MEDS: Naproxen 500 MG Tablet PO (22:50)
[2023-05-28 02:47] VITALS: BP 131/72; PULSE 67; RESP 16; TEMP 36.2; O2SAT 99
[2023-05-28 03:36] VITALS: BMI 34.2
[2023-05-28 06:37] LABS: Cholesterol 182 mg/dL (200); High Density Lipoprotein 64 mg/dL; Triglycerides 101 mg/dL; Very Low Density Lipoprotein 20 mg/dL (5-40)
[2023-05-28 07:32] VITALS: O2SAT 99
--- NOTE | 2023-05-28 08:14 | PCM.PN.HOSP ---
Reason for Visit Reason for Visit: Diagnoses Dizziness and giddiness (05/27/23) Subjective Subjective Still with dizziness upon movement, but much improved. Objective Data Objective Data Vital Signs: Vital Signs Temp Pulse Resp BP Pulse Ox O2 Del Method 36.2 C L 67 16 131/72 H 99 Room Air 05/28/23 02:47 05/28/23 02:47 05/28/23 02:47 05/28/23 02:47 05/28/23 02:47 05/28/23 04:10 Oxygen Delivery Method Room Air Weight: 96.343 kg Body Mass Index (BMI) 34.2 Intake & Output: Intake and Output for Last 24 Hours 05/26/23 05/27/23 05/28/23 23:59 23:59 23:59 Intake Total 1420 / 1420 Balance 1420 / 1420 Lab / Micro Data 05/27/23 07:25 05/27/23 07:25 Labs: Laboratory Results - last 24 hr 05/27/23 07:25: Sodium 139, Potassium 3.9, Chloride 107, Carbon Dioxide 25.0, Anion Gap 7, BUN 30 H, Creatinine 1.03 H, Estim Creat Clear Calc 42.82, Est GFR (MDRD) Af Amer 67, Est GFR (MDRD) Non-Af 55 L, BUN/Creatinine Ratio 29.1 H, Glucose 143 H, Calcium 9.4, Troponin I High Sens 6 05/27/23 08:30: Urine Color Yellow, Urine Clarity Clear, Urine pH 6.5, Ur Specific [place] 1.015, Urine Protein Negative, Urine Glucose (UA) Normal, Urine Ketones Negative, Urine Occult Blood Negative, Urine Nitrite Negative, Urine Bilirubin Negative, Urine Urobilinogen Normal, Ur Leukocyte Esterase 25 H, Urine RBC 0 SEEN, Urine WBC 0-5 SEEN, Ur Squamous Epith Cells 0-5 SEEN, Urine Bacteria 0 SEEN, Urine Mucus 0 SEEN 05/27/23 14:10: Troponin I High Sens 11 05/28/23 05:51: Triglycerides 101, Cholesterol 182, LDL Cholesterol 98, VLDL Cholesterol 20, HDL Cholesterol 64 Radiography Diagnostic Testing: Radiology Impression Chest X-Ray 05/27/23 08:11 IMPRESSION: Hiatal hernia. The lungs are clear. Electronically Signed: Tyrel Phelps MD at 8:32 EDT , Brain CT 05/27/23 09:50 IMPRESSION: Normal unenhanced CT scan of the brain. Electronically Signed: Tyrel Phelps MD at 10:26 EDT , Brain MRI 05/27/23 13:53 IMPRESSION: 1. Mild involutional changes, chronic microvascular deep white matter changes without mass, hemorrhage, or acute territorial infarct. 2. Prominent dilated perivascular spaces in the LEFT caudate. 3. Incidental note of a nodule within the superficial lobe of the RIGHT parotid, a pleomorphic adenoma is a consideration. Consider short-term follow-up which could include nonemergent CT of the face with contrast. Electronically Signed: Fransisco Hawk MD at 21:12 EDT , Echocardiogram 05/27/23 13:53 Interpretation Summary The estimated ejection fraction is 55 %. Unable to assess diastolic dysfunction. The left atrium is mildly enlarged. Trivial mitral valve insufficiency. Ordering Physician: Yaniv Funez Referring Physician: Tabatha Solano M.D. Performed By: Klarissa Mcgee RCS Physical Exam Const alert and no apparent distress HEENT head/scalp atraumatic Eyes Eyes Narrative: shimmering moveable lens in right eye Neuro moves all extremities Sensorium / Orientation: awake and alert Assessment & Plan Assessment/Plan (1) Dizziness: PLAN: BPPV versus stroke. MRI brain: no stroke. prominent dilated perivascular spaces in left caudate. Incidental note of nodule w/i the superficial lobe of the right parotid gland. Check CTA head and neck showed no acute porcess. Consult neurology given symptoms and note of dilated perivascular spaces. continue ASA. PRN meclizine. PT OT (2) Parotid nodule: PLAN: Incidental finding CT showed 1.1 x 0.7 nodule. follow up with ENT as outpt. PLAN: Plan Chronic conditions: GERD: gout: allopurinol HTN VTE prophylaxis: not indicated given current observation status. Charges/Coding Visit Charges Inpatient E&M: 65843 Subs Hosp L2
--- NOTE | 2023-05-28 08:25 | CT_ITS ---
STUDY: CT PARANASAL SINUSES WITH CONTRAST REASON FOR EXAM: Female, 77 years old. Right parotid nodule. RADIATION DOSAGE (If Supplied By Facility): CTDIvol = ( 15.86 ) mGy, DLP = ( 1386.26 ) mGycm TECHNIQUE: The patient was scanned in a multi-detector CT scanner. High resolution transaxial imaging was performed following the intravenous administration of IV 100mL Isovue-370. Sagittal and coronal images were reconstructed. Individualized dose optimization techniques were used for this CT. COMPARISON: None. FINDINGS: FRONTAL SINUSES: Normal development and aeration of the bilateral frontal sinuses without mucosal inflammatory disease. ETHMOIDAL SINUSES: Normal development and aeration of the bilateral ethmoidal air cells without mucosal inflammatory disease. MAXILLARY SINUSES: Normal development and aeration of the bilateral maxillary antra without mucosal inflammatory disease. SPHENOIDAL SINUSES: Normal aeration of the bilateral sphenoid sinuses and there is no mucosal inflammatory disease. OMU: Normal aeration of the bilateral maxillary infundibulum. Normal uncinate process, ethmoid bulla, and hiatus semilunaris. MIDDLE TURBINATES: Normal bilateral middle turbinates without a ryan bullosa or paradoxical curvature. INFERIOR TURBINATES: Normal bilateral inferior turbinates. NASAL SEPTUM: Normal midline nasal septum and there is no nasal septal mass lesions, deviation or spur. Normal anterior cranial fossa, landy kimber and cribriform plate. Normal bilateral orbital contents. Normal nasopharynx without adenoidal pad hypertrophy, or a posterior nasopharyngeal retention cyst. There is a 1.1 cm x 0.7 cm well-defined enhancing nodule in the lateral superior aspect of the right parotid gland. Prominence of the inferior turbinates bilaterally. CT/Sinus/Facial Bone WITH Contras IMPRESSION: The sinuses are clear. 1.1 cm x 0.7 cm nodule in the lateral superior aspect of the right parotid gland. Electronically Signed: Tyrel Phelps MD at 10:47 EDT ,
--- NOTE | 2023-05-28 08:25 | CT_ITS ---
STUDY: CTA HEAD AND NECK WITH CONTRAST REASON FOR EXAM: Female, 77 years old. Dizziness. RADIATION DOSAGE (If Supplied By Facility): CTDIvol = ( 15.86 ) mGy, DLP = ( 1386.26 ) mGycm TECHNIQUE: CT angiography was performed with a multi-detector CT scanner. Data acquisition was obtained from the skull base through the vertex following intravenous administration of IV 100mL Isovue-370. MIP images were reconstructed from the axial data set. Post-processing of the angiographic images was performed, with multiplanar reformation and 3D reconstruction. Individualized dose optimization techniques were used for this CT. COMPARISON: No relevant priors. FINDINGS: Normal bilateral petrous carotid arteries. There is calcified plaque formation of the right cavernous carotid artery, without a cross-sectional luminal stenosis. There is calcified plaque formation of the left cavernous carotid artery, without a cross-sectional luminal stenosis. Normal right A1 segments of the anterior cerebral artery. Normal left A1 segments of the anterior cerebral artery. Normal intact anterior communicating artery (ACOM). Normal bilateral A2 segments of the anterior cerebral arteries. Normal right M1 and M2 segments of the middle cerebral arteries, with a normal M1 bifurcation. Normal left M1 and M2 segments of the middle cerebral arteries, with a normal M1 bifurcation. Normal right posterior communicating artery (PCOM). Normal left posterior communicating artery (PCOM). Normal bilateral vertebral arteries. Normal basilar artery with a normal basilar bifurcation. The visualized bilateral superior cerebellar (SCA) arteries are normal. Normal bilateral P1, P2 and visualized P3 segments of the posterior cerebral arteries. There is no demonstrated aneurysm of the skull [place]. There is no demonstrated abnormality of the visualized brain. There is a 1.2 cm x 0.7 cm enhancing nodule in the lateral superior aspect of the right parotid gland. AORTIC ARCH: There is atherosclerotic calcific plaque formation of the aortic arch and great vessels arising from the aortic arch, without a hemodynamically significant stenosis. There is a bovine origin of the great vessels with a common origin of the brachiocephalic and left common carotid artery. Normal origin of the left subclavian artery. Coronary artery calcification. Prior CABG. RIGHT CAROTID ARTERIES: Normal right common carotid artery (CCA). Normal right common carotid bulb. Normal origin of the right internal carotid (ICA) artery without a hemodynamically significant stenosis. Normal visualized cervical portion of the right internal carotid artery. Normal origin of the right external carotid artery (ECA). LEFT CAROTID ARTERIES: Normal left common carotid artery (CCA). Normal left common carotid bulb. Normal origin of the left internal carotid (ICA) artery without a hemodynamically significant stenosis. Normal visualized cervical portion of the left internal carotid artery. Normal origin of the left external carotid artery (ECA). VERTEBRAL ARTERIES: Normal bilateral vertebral arteries. CT/CTA Head AND Neck W/ Contrast IMPRESSION: Normal CTA Head and neck with contrast. 1.2 cm x 0.7 cm enhancing nodule in the lateral superior aspect of the right parotid gland. Electronically Signed: Tyrel Phelps MD at 10:02 EDT ,
[2023-05-28 09:21] VITALS: BP 117/68; PULSE 74; RESP 16; TEMP 35.9; O2SAT 99
[2023-05-28] MEDS: busPIRone 5 MG Tablet 10 MG PO (09:27)
[2023-05-28] MEDS: Calcium Carb/Vitamin D 1 TABLET Tablet PO (09:27)
[2023-05-28 09:28] VITALS: BP 117/68; PULSE 74
[2023-05-28] MEDS: Metoprolol Tartrate 25 MG Tablet PO (09:28)
[2023-05-28] MEDS: Multivitamins,Therapeutic Tablet 1 TABLET PO (09:28)
[2023-05-28] MEDS: Allopurinol 100 MG Tablet PO (09:28)
[2023-05-28] MEDS: Naproxen 500 MG Tablet PO (09:28)
[2023-05-28 15:08] VITALS: BP 123/79; PULSE 67; RESP 20; TEMP 36.4; O2SAT 100
--- NOTE | 2023-05-28 15:34 | PCM.DC ---
Discharge Instructions Diet Discharge Diet: No restrictions Follow Up Care Test Results: Test results from this visit will be discussed in further detail at your follow-up appointment, if applicable. Discharge Plan Admission Admit Date/Time: 05/27/23 13:38 Attending Provider: Yaniv Funez Primary Care Provider: Tabatha Solano Discharge Orders/Prescriptions Prescriptions: New meclizine 12.5 mg Tablet 12.5 mg PO TID PRN PRN (Reason: Dizziness) Qty: 10 0RF Continued loratadine 10 mg tablet 10 mg PO DAILY PRN (Reason: Allergies) Patient Comments: PT STATES ONLY TAKES NEEDED allopurinol 100 mg tablet 100 mg PO DAILY acetaminophen 500 mg tablet 500 mg PO Q6H PRN (Reason: FEVER, PAIN) calcium carbonate-vitamin D3 500 mg(1,250mg) -125 unit tablet 1 tablet PO DAILY multivitamin Tablet 1 tablet PO DAILY naproxen [Naprosyn] 500 mg tablet 500 mg PO BID Patient Comments: PT STATES TRY TO ONLY TAKES ONCE DAILY NEEDED aspirin [Adult Aspirin Regimen] 81 mg tablet,delayed release (DR/EC) 81 mg PO QODAY furosemide 40 mg tablet 40 mg PO DAILY Qty: 90 3RF potassium chloride 20 mEq tablet,ER particles/crystals 20 meq PO DAILY Qty: 90 3RF metoprolol tartrate 25 mg tablet 25 mg PO BID Qty: 180 3RF buspirone 10 mg tablet 10 mg PO BID Referrals / Follow Up: Tabatha Solano MD [Primary Care Provider] - Within 2 Weeks [place] [facility] [Provider Group] - Within 1 Month Disposition Disposition (needs filled in before D/C Order can be placed): Home, Self Care
[2023-05-28 16:20] VITALS: BMI 34.2
--- NOTE | 2023-05-28 16:40 | CASEMGMT ---
MAGEN CM in to complete BERRY form with patient. RN DARREL explained BERRY Form to patient, patient voiced understanding. Patient signed BERRY form and filed in chart. Patient provided copy of signed BERRY form. Patient declines needs for at discharge. Patient had no further questions or concerns.
--- NOTE | 2023-05-28 19:14 | DS.PCM_ITS ---
Providers Date of Admission: 05/27/23 Primary Care Physician: Dr. Tabatha Solano MD Reason For Visit: DIZZINESS Diagnosis Discharge Diagnosis (1) Dizziness: Status: Acute Code(s): R42 - Dizziness and giddiness Plan: BPPV versus stroke. MRI brain: no stroke. prominent dilated perivascular spaces in left caudate. Incidental note of nodule w/i the superficial lobe of the right parotid gland. Check CTA head and neck showed no acute porcess. Discussed with [facility] teleneurology. Perivascular space benign and of no clinical consequence. PRN meclizine. PT OT (2) Parotid nodule: Status: Acute Code(s): K11.8 - Other diseases of salivary glands Plan: Incidental finding CT showed 1.1 x 0.7 nodule. follow up with ENT as outpt. Plan Chronic conditions: * GERD: * gout: allopurinol * HTN VTE prophylaxis: not indicated given current observation status. Medications at Discharge Home Medications loratadine 10 mg tablet 10 mg PO DAILY PRN Allergies 08/21/19 allopurinol 100 mg tablet 100 mg PO DAILY 04/27/20 acetaminophen 500 mg tablet 500 mg PO Q6H PRN FEVER, PAIN 02/17/21 calcium carbonate 500 mg-vitamin D3 3.125 mcg (125 unit) tablet 1 tablet PO DAILY 02/17/21 multivitamin 1 tablet PO DAILY 02/17/21 buspirone 10 mg tablet 10 mg PO BID anxiety 06/12/22 aspirin 81 mg tablet,delayed release (Adult Aspirin Regimen) 81 mg PO QODAY 0 12/07/22 furosemide 40 mg tablet 40 mg PO DAILY #90 tabs 12/07/22 metoprolol tartrate 25 mg tablet 25 mg PO BID #180 tabs 12/07/22 naproxen 500 mg tablet (Naprosyn) 500 mg PO BID 12/07/22 potassium chloride 20 mEq tablet,extended release(part/cryst) 20 meq PO DAILY #90 tabs 12/07/22 meclizine 12.5 mg tablet 12.5 mg PO TID PRN PRN Dizziness #10 tabs 05/28/23 Hospital Course Operations None Procedures 2-D Echocardiogram Summary of Care Provided Minutes Spent on Discharge: 45 Weight / BMI Weight Weight: 96.343 kg Body Mass Index (BMI) 34.2 ABG / Lab / Microbiology Data 05/27/23 07:25 05/27/23 07:25 Laboratory: Laboratory Results - last 24 hr 05/28/23 05:51: Triglycerides 101, Cholesterol 182, LDL Cholesterol 98, VLDL Cholesterol 20, HDL Cholesterol 64 Radiography Diagnostic Testing: Radiology Impression Brain MRI 05/27/23 13:53 IMPRESSION: 1. Mild involutional changes, chronic microvascular deep white matter changes without mass, hemorrhage, or acute territorial infarct. 2. Prominent dilated perivascular spaces in the LEFT caudate. 3. Incidental note of a nodule within the superficial lobe of the RIGHT parotid, a pleomorphic adenoma is a consideration. Consider short-term follow-up which could include nonemergent CT of the face with contrast. Electronically Signed: Fransisco Hawk MD at 21:12 EDT , Facial/Sinus 05/28/23 08:25 IMPRESSION: The sinuses are clear. 1.1 cm x 0.7 cm nodule in the lateral superior aspect of the right parotid gland. Electronically Signed: Tyrel Phelps MD at 10:47 EDT , Head/Neck CTA 05/28/23 08:25 IMPRESSION: Normal CTA Head and neck with contrast. 1.2 cm x 0.7 cm enhancing nodule in the lateral superior aspect of the right parotid gland. Electronically Signed: Tyrel Phelps MD at 10:02 EDT , D/C Instructions Discharge Diet: No restrictions Meaningful Use Info Meaningful Use Diagnoses (Choose all that apply): None applicable Discharge Plan Admission Admit Date/Time: 05/27/23 13:38 Primary Reason for Your Visit: Vertigo Attending Provider: Yaniv Funez Primary Care Provider: Tabatha Solano Discharge Orders/Prescriptions Prescriptions: New meclizine 12.5 mg Tablet 12.5 mg PO TID PRN PRN (Reason: Dizziness) Qty: 10 0RF Continued loratadine 10 mg tablet 10 mg PO DAILY PRN (Reason: Allergies) Patient Comments: PT STATES ONLY TAKES NEEDED allopurinol 100 mg tablet 100 mg PO DAILY acetaminophen 500 mg tablet 500 mg PO Q6H PRN (Reason: FEVER, PAIN) calcium carbonate-vitamin D3 500 mg(1,250mg) -125 unit tablet 1 tablet PO DAILY multivitamin Tablet 1 tablet PO DAILY naproxen [Naprosyn] 500 mg tablet 500 mg PO BID Patient Comments: PT STATES TRY TO ONLY TAKES ONCE DAILY NEEDED aspirin [Adult Aspirin Regimen] 81 mg tablet,delayed release (DR/EC) 81 mg PO QODAY furosemide 40 mg tablet 40 mg PO DAILY Qty: 90 3RF potassium chloride 20 mEq tablet,ER particles/crystals 20 meq PO DAILY Qty: 90 3RF metoprolol tartrate 25 mg tablet 25 mg PO BID Qty: 180 3RF buspirone 10 mg tablet 10 mg PO BID Referrals / Follow Up: [facility] [Provider Group] - Within 1 Month Tabatha Solano MD [Primary Care Provider] - Within 2 Weeks Disposition Disposition (needs filled in before D/C Order can be placed): Home, Self Care Charges/Coding Visit Charges Inpatient E&M: 21421 Disch Hosp >30min
== END 2023-05-28 18:45 | disposition home or self-care (01) ==
LOC: ED 10:49 → PCU 11:16
PROVIDERS: Emergency Provider Emergency Medicine; PCP Internal Medicine
DX: R42 Dizziness and giddiness (principal); I11.0 Hypertensive heart disease with heart failure; I50.9 Heart failure, unspecified; I73.9 Peripheral vascular disease, unspecified; Z79.82 Long term (current) use of aspirin; F41.9 Anxiety disorder, unspecified; I25.10 Atherosclerotic heart disease of native coronary artery without angina pectoris; Z87.891 Personal history of nicotine dependence; E78.5 Hyperlipidemia, unspecified; K11.8 Other diseases of salivary glands; K21.9 Gastro-esophageal reflux disease without esophagitis; M10.9 Gout, unspecified; Z79.899 Other long term (current) drug therapy
CPT/HCPCS: 36415; 70450; 70487; 70496; 70498; 70551; 71045; 80048; 80061; 81001; 84484; 85025; 93005; 93306; 96360; 96361; 97162; 97166; 99221; 99285; J7030; Q9967; G0378

== ENCOUNTER 2025-08-05 14:29 | Emergency (ER) | payer MEDICARE, SELFPAY ==
[2025-08-05 14:31] VITALS: BP 135/78; PULSE 78; RESP 16; TEMP 36.8; O2SAT 98
--- NOTE | 2025-08-05 14:52 | RAD_ITS ---
PROCEDURE: CHEST 1 VIEW (PORTABLE) 08/05/2025 REASON FOR EXAM: CHEST PAIN TECHNIQUE: Frontal view of the chest. COMPARISON: None provided. RAD/Chest 1 View (Portable) IMPRESSION: A moderately large hiatal hernia is seen. Prior mediastinal surgery noted. 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 Lungs appear clear of acute disease. No pleural effusion or pneumothorax is evident. No evidence of cardiomegaly or significant mediastinal widening. Moderate degenerative changes of the spine are seen. Moderate wedge compression fracture a vertebral body at the thoracolumbar junct ion region is seen, likely representing T12 or L1, with fracture involving the superior endplate. Mild focal kyphosis is seen. No significant degree of subluxation is evident. Reading Location: [place] [id number]
[2025-08-05 14:55] LABS: Hematocrit 38.4 % (37-47); Hemoglobin 12.6 g/dL (12.0-15.0); Immature Granulocytes Count 0.020 X10^3/uL (0.0-0.0); Mean Corp Hgb Conc 32.8 g/dL (32-36); Mean Corpuscular Volume 93.2 fL (81-99); Mean Platelet Vol. 10.0 fl (6.2-12.0); NRBC Flagged by Analyzer 0 % (0-5); Platelet Count 183 K/mm3 (150-450); RBC Distribution Width CV 14.4 % (11.6-14.6); RBC Distribution Width SD 49.1 fl (35.1-43.9); Red Blood Count 4.12 M/mm3 (4.2-5.4); White Blood Count 5.5 K/mm3 (4.4-11.0)
[2025-08-05 15:27] LABS: Anion Gap 10 (5-15); BUN 18 mg/dL (4-19); BUN/Creat Ratio 16.6 RATIO (10-20); Calcium,Total 9.2 mg/dL (7.6-11.0); Carbon Dioxide 24.8 mmol/L (21.0-32.0); Chloride 105 mmol/L (98-108); Glucose 119 mg/dL (70-99); Potassium 3.8 mmol/L (3.3-5.1); Troponin T High Sensitivity 10 ng/L (<=14)
--- NOTE | 2025-08-05 16:07 | ED.VIS.CHEST ---
HPI History of Present Illness Chief Complaint: Chest Pain Narrative Narrative: 79-year-old female past medical history of GERD, hiatal hernia, hypertension, hyperlipidemia, presents with chest discomfort and pain that she experienced approximately 2 hours ago. She states she had gotten home from lunch, and felt discomfort in her chest. She was nauseated but did not vomit. She states she became diaphoretic. She had taken her morning medications. She called EMS, and her symptoms started to subside. Currently, she is pain-free. She states that she felt short of breath, and was having dyspnea. No recent fevers or chills, no other exacerbating or alleviating factors. [facility] Medical History Parotid nodule History of hypertension Peripheral vascular disease Varicose veins with inflammation Chronic venous insufficiency Lower extremity edema Swelling of lower extremity Traumatic open wound of left lower leg Congestive heart failure Gout Osteoarthritis Hiatal hernia GERD (gastroesophageal reflux disease) Hyperlipidemia Hypertension Polyarthropathy History of pleural effusion Pulmonary hypertension Nonrheumatic mitral (valve) insufficiency Bilateral pleural effusion Atherosclerotic heart disease of [place] coronary artery without angina pectoris Home Medications ?Medication ?Instructions ?Recorded ?Last Taken ?Type loratadine 10 mg tablet 10 mg PO DAILY PRN Allergies 08/21/19 Unknown History acetaminophen 500 mg tablet 500 mg PO Q6H PRN FEVER, PAIN 02/17/21 05/26/23 History calcium 500 mg (as 1 tablet PO DAILY 02/17/21 05/26/23 History carbonate)-vitamin D3 3.125 mcg (125 unit) tablet multivitamin 1 tablet PO DAILY 02/17/21 05/26/23 History buspirone 10 mg tablet 10 mg PO BID anxiety 06/12/22 05/26/23 History aspirin 81 mg tablet,delayed 81 mg PO QODAY 12/07/22 05/27/23 History release (Adult Aspirin Regimen) celecoxib 200 mg capsule 200 mg PO DAILY 11/25/24 Unknown History colchicine 0.6 mg tablet 0.6 mg PO BID PRN 11/25/24 Unknown History metoprolol tartrate 25 mg tablet 25 mg PO BID #180 tabs 11/25/24 Unknown Rx allopurinol 100 mg tablet 100 mg PO BID 07/19/25 Unknown History furosemide 40 mg tablet 40 mg PO Q OTHER DAY 07/19/25 Unknown History omeprazole 40 mg capsule,delayed 40 mg PO .prn 07/19/25 Unknown History release potassium chloride 10 mEq 10 meq PO .prn 07/19/25 Unknown History tablet,extended release Allergy/AdvReac Type Severity Reaction Status Date / Time codeine Allergy Unknown Rash Verified 08/05/25 14:43 Seasonal Allergies: Uncoded Allergy Other Verified 08/05/25 14:43 tramadol Allergy Itching Verified 08/05/25 14:43 atorvastatin (From Lipitor) AdvReac hives and Verified 08/05/25 14:43 itching Family History Mother Heart disease Grandmother CVA (cerebral vascular accident) Surgical History Hx of CABG History of tonsillectomy History of bilateral cataract extraction History of total bilateral knee replacement History of left knee replacement History of right knee joint replacement History of bilateral cataract extraction History of left heart catheterization (LHC) History of mitral valve repair (07/08/17) History of tonsillectomy History of tubal ligation Social History Smoking Status: Former smoker alcohol intake: current alcohol intake frequency: a few times a week Alcohol type: wine substance use type: does not use diet: low salt caffeine: Yes Type: coffee Number of servings: 3 what type of physical activity do you participate in: other details: PT frequency: 3-4 times per week duration: 30-45 minutes/day seatbelt use: always do you feel safe at home: Yes ROS ROS ED ROS Narrative Review of systems is positive for chest discomfort, midsternal radiating from epigastrium. Positive diaphoresis. Currently resolved. No fevers or chills. Reported dyspnea at the time. No leg swelling. EXAM Physical Exam Narrative Exam Narrative: Afebrile. Vital signs noted. Nontoxic-appearing. Cardiovascular lamination reveals a regular rate and rhythm. Lungs are clear to auscultation bilaterally. The abdomen is soft and nontender without guarding or rebound. No tenderness in the epigastrium. Negative Ruiz sign. Neurological examination nonfocal, nonlateralizing. Moves all extremities. No appreciable pedal edema. Const Vital Signs: 08/05/25 14:31 08/05/25 16:12 08/05/25 16:12 Temperature 98.2 F Temperature Source Oral Pulse Rate 78 70 Respiratory Rate 16 12 Blood Pressure 135/78 H Blood Pressure Mean 97 Pulse Ox 98 100 Oxygen Delivery Method Room Air Room Air Room Air 08/05/25 17:00 Temperature Temperature Source Pulse Rate 75 Respiratory Rate 18 Blood Pressure 144/83 H Blood Pressure Mean 103 Pulse Ox 100 Oxygen Delivery Method Room Air MDM MDM MDM Narrative Medical decision making narrative: The differential diagnosis includes but not limited to ACS/STEMI/non-STEMI versus hiatal hernia versus GERD versus aortic dissection. History and physical does not support aortic dissection as she is not having any tearing back pain and her blood pressures are appropriate here. I reviewed her prior records. She does have history of hiatal hernia. I reviewed her laboratory work and she has normal white count of 5.5 with hemoglobin normal at 12.6, platelet count normal at 183. BMP is grossly normal except for GFR 53, glucose 119. Initial high-sensitivity troponin is 10. On my independent interpretation of her chest x-ray, there is no pneumonia or consolidation. I reviewed the radiology report which confirms my independent interpretation and comments on hiatal hernia and degenerative changes of the spine. EKG obtained and interpreted by myself independently. I examined the patient and she is currently pain-free. I do think the majority of her discomfort may have been from the moderately sized hiatal hernia. She states she is on medication for this, but her daughter states she does not take it daily. Upon repeat examination she is resting comfortably on the cot. Her repeat troponin is also 10 for an acceptable delta troponin. At this point in time I feel she can be discharged to follow-up with her primary care provider. Return instructions to the emergency department were reviewed. Patient motivated for discharge. Disposition is discharged home in stable condition. History & Record Review Discussion w/independent historian: Patient Additional record(s) reviewed:: Prior ED visit (Last ED visit 2022) Lab Data Attestation: I reviewed the patient's lab results. Labs: Laboratory Results - last 24 hr 08/05/25 08/05/25 14:41 16:59 WBC 5.5 RBC 4.12 L Hgb 12.6 Hct 38.4 MCV 93.2 MCH 30.6 MCHC 32.8 RDW Std Deviation 49.1 H RDW Coeff of Carl 14.4 Plt Count 183 MPV 10.0 Immature Gran % (Auto) 0.400 Neut % (Auto) 61.0 Lymph % (Auto) 22.4 Alexander % (Auto) 12.3 H Eos % (Auto) 3.4 Baso % (Auto) 0.5 Absolute Neuts (auto) 3.4 Absolute Lymphs (auto) 1.24 Nucleated RBC % 0 Sodium 139 Potassium 3.8 Chloride 105 Carbon Dioxide 24.8 Anion Gap 10 BUN 18 Creatinine 1.06 Est GFR (MDRD) Non-Af 53 L BUN/Creatinine Ratio 16.6 Glucose 119 H Calcium 9.2 Troponin T High Sens 10 Troponin T Hi Sens 2 Hr 10 Radiography Diagnostic Testing: Clinical Impression(s) from Imaging Studies Chest X-Ray 08/05/25 14:52 IMPRESSION: A moderately large hiatal hernia is seen. Prior mediastinal surgery noted. 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 Lungs appear clear of acute disease. No pleural effusion or pneumothorax is evident. No evidence of cardiomegaly or significant mediastinal widening. Moderate degenerative changes of the spine are seen. Moderate wedge compression fracture a vertebral body at the thoracolumbar junction region is seen, likely representing T12 or L1, with fracture involving the superior endplate. Mild focal kyphosis is seen. No significant degree of subluxation is evident. Reading Location: [place] [address] Discharge Plan Triage Chief Complaint: Chest Pain ED Provider: Dmitry Ferreira Dx/Rx/DC Orders Clinical Impression: Hiatal hernia, Chest pain Instructions: ED Chest Pain, Uncertain Cause, ED Hiatal Hernia Prescriptions: No Action loratadine 10 mg tablet 10 mg PO DAILY PRN (Reason: Allergies) Patient Comments: PT STATES ONLY TAKES NEEDED acetaminophen 500 mg tablet 500 mg PO Q6H PRN (Reason: FEVER, PAIN) calcium carbonate-vitamin D3 500 mg(1,250mg) -125 unit tablet 1 tablet PO DAILY multivitamin Tablet 1 tablet PO DAILY aspirin [Adult Aspirin Regimen] 81 mg tablet,delayed release (DR/EC) 81 mg PO QODAY omeprazole 40 mg capsule,delayed release(DR/EC) 40 mg PO .prn celecoxib 200 mg capsule 200 mg PO DAILY colchicine 0.6 mg tablet 0.6 mg PO BID PRN Patient Comments: [NO ORIGINAL SIG] metoprolol tartrate 25 mg tablet 25 mg PO BID Qty: 180 3RF potassium chloride 10 mEq tablet extended release 10 meq PO .prn allopurinol 100 mg tablet 100 mg PO BID furosemide 40 mg tablet 40 mg PO Q OTHER DAY buspirone 10 mg tablet 10 mg PO BID Primary Care Provider: Tabatha Solano Referrals: Tabatha Solano MD [Primary Care Provider, Internal Medicine] - 3-5 Days Activity Restrictions/Additional Instructions: Continue your medications for your hiatal hernia/GERD. Return to the emergency department with increased pain, nausea and vomiting, fever, new or worsening symptoms. Follow-up with your primary care provider. Print Language: [place] Disposition Disposition: Home, Self Care
[2025-08-05 16:12] VITALS: PULSE 70; RESP 12; O2SAT 100; BMI 27.0
[2025-08-05 17:00] VITALS: BP 144/83; PULSE 75; RESP 18; O2SAT 100
[2025-08-05 17:40] LABS: Troponin T High Sens 2 HR 10 ng/L (<=14)
== END 2025-08-05 18:20 | disposition home or self-care (01) ==
PROVIDERS: Emergency Provider Emergency Medicine; PCP Internal Medicine; Visit Provider Emergency Medicine
DX: K44.9 Diaphragmatic hernia without obstruction or gangrene (principal); I25.10 Atherosclerotic heart disease of native coronary artery without angina pectoris; Z87.891 Personal history of nicotine dependence; E78.5 Hyperlipidemia, unspecified; R07.9 Chest pain, unspecified; I10 Essential (primary) hypertension; Z95.1 Presence of aortocoronary bypass graft; Z98.51 Tubal ligation status
CPT/HCPCS: 71045; 80048; 84484; 85025; 93005; 99285; A4216